=== PATIENT | male | born 1995 | race Caucasian/White ===

== ENCOUNTER 2019-02-19 12:57 | Inpatient (IN) | payer OTHER ==
[2019-02-19] VITALS (7 sets, daily range): BP systolic 93–132; BP diastolic 44–65
[~2019-02-19] VITALS: Ht 167.6 cm; Wt 60.5 kg
[2019-02-19] MEDS ORDERED: INSULIN,REGULAR 150 UNIT DRIP 150 ML IV ONE ×2 (13:15→13:23)
[2019-02-19] MEDS ORDERED: IV NORMAL SALINE 1000ML BAG 1,000 ML IV ONE ×3 (13:15→15:15)
[2019-02-19] MEDS ORDERED: INSULIN REGULAR 100 UNIT/ML 3ML VIAL. IV ONE ×2 (13:15→14:30)
[2019-02-19 13:16] LABS: BASE EXCESS COOX -29 mmol/L (-3-3); HCO3 COOX 5 mmol/L (21-28); METHEMOGLOBIN 0.7 % (0.0-1.9); PCO2 COOX 29 mmHg (35-46); PO2 COOX 309 mmHg (85-108); SAT O2 COOX 99 % (92-99)
[2019-02-19 13:30] LABS: PROTHROMBIN TIME PATIENT 17.1 SEC (11.7-14.0)
[2019-02-19] MEDS ORDERED: NOREPINEPHRIN 8MG/250ML PREMIX 250 ML IV ONE (13:30)
[2019-02-19] MEDS ORDERED: CONTRAST GIVEN. MC PRN (13:30)
[2019-02-19] MEDS ORDERED: IOHEXOL 300 MG/ML 100ML VIAL. IV ONE (13:30)
[2019-02-19] MEDS ORDERED: IV NORMAL SALINE 1000ML BAG 1,000 ML IV SCH ×2 (13:30→14:00)
--- NOTE | 2019-02-19 13:34 | RAD ---
EXAM: CHEST 1 VIEW History: Postcode COMPARISON: None available. TECHNIQUE: Single portable radiograph of the chest FINDINGS: The ET tube is identified in the trachea just below the level of the clavicles. Minimal prominent bilateral interstitial lung markings. The costophrenic sulci are clear and well demarcated. IMPRESSION: 1. ET tube in place. 2. Minimal prominent bilateral interstitial lung markings likely minimal congestive changes. Electronically signed by: Gabe Pugh MD (02/19/2019 1:31 PM) [facility]
--- NOTE | 2019-02-19 13:39 | EKG ---
[facility] [address] [place] [address] Test Date: 2019-02-19 Test Time: 13:06:21 Pat Name: CHANA CLARK Department: Room: Gender: M Upper Doubler: : 1995 Requested By: TURNER HENDERSON Order Number: [id number] Reading MD: Darell Merchant MD Measurements Intervals [place] Rate: 88 P: OR: QRS: 101 QRSD: 120 T: -14 QT: 400 QTc: 488 Interpretive Statements sr RAD RBBB NON-SPECIFIC ST/T CHANGES Electronically Signed On 02-27-2019 9:05:02 CDT by Darell Merchant MD
[2019-02-19 13:57] LABS: BILIRUBIN,URINE NEGATIVE (NEG); CLARITY,URINE CLEAR; COLOR,URINE YELLOW; NITRITE,URINE NEGATIVE (NEG); PROTEIN,URINE NEGATIVE (NEG-TRACE); UROBILINOGEN,URINE 0.2 mg/dL (0.2 mg/dL)
[2019-02-19] MEDS ORDERED: ONDANSETRON PF 4 MG/2 ML VIAL. IV PRN (14:00)
[2019-02-19] MEDS ORDERED: ENOXAPARIN 40 MG/0.4 ML SYRINGE. SQ ONE (14:00)
[2019-02-19] MEDS ORDERED: PANTOPRAZOLE IV PUSH 40 MG VIAL. IVP ONE (14:00)
[2019-02-19] MEDS ORDERED: MORPHINE SULFATE 2 MG/ML VIAL. IV PRN (14:00)
[2019-02-19] MEDS ORDERED: DEXTROSE 50% 25 GM / 50ML DISP.SYRIN. IV PRN ×2 (14:00→14:30)
[2019-02-19 14:02] LABS: ALBUMIN 3.3 g/dL (3.4-5.0); ALBUMIN/GLOBULIN RATIO 1.1 (1.0-1.7); CALCIUM 8.4 mg/dL (8.5-10.1); CREATININE 4.5 mg/dL (0.7-1.3); TOTAL BILIRUBIN 0.5 mg/dL (0.2-1.0); TOTAL PROTEIN 6.4 g/dL (6.4-8.2)
[2019-02-19 14:03] LABS: BASO # 0.1 x10^3/uL (0.0-0.2); BASO % 0 % (0-3); EOS # 0.1 x10^3/uL (0.0-0.7); EOS % 1 % (0-3); HEMATOCRIT 45.9 % (39.0-53.0); LYMPH % 19 % (24-48); MEAN CORPUSCULAR HEMOGLOBIN 31 pg (25-35); MEAN CORPUSCULAR HGB CONC 28 g/dL (31-37); MEAN CORPUSCULAR VOLUME 108 fL (79-100); MONO # 0.9 x10^3/uL (0.0-1.1); MONO % 4 % (0-9); NEUT # 16.6 x10^3uL (1.8-7.7); NEUT % 77 % (31-73); PLATELET COUNT 249 x10^3/uL (140-400); RED BLOOD COUNT 4.26 x10^6/uL (4.30-5.70); RED CELL DISTRIBUTION WIDTH 13.6 % (11.5-14.5); WHITE BLOOD COUNT 21.6 x10^3/uL (4.0-11.0)
--- NOTE | 2019-02-19 14:03 | PHYS DOC ---
Adult General Chief Complaint Chief Complaint: CPR/FULL ARREST HPI HPI Patient is a 23 year old incarcerated male patient brought in by EMS post CODE BLUE. Patient refuses to take fluids and insulin for several days and was found unresponsive for 5 minutes after had his food. EMS was arrived to the halfway door at 1209 and found patient in asystole without spontaneous breathing and started CPR at 1213 and intubated the patient at 1223 with 7.5 T tube. After about 30 minutes of CPR patient had spontaneous cardiac activity with pulse without having spontaneous breathing. The patient had blood pressure of 60s and blood sugar of 'high"at arrival to ER. (TURNER HENDERSON MD) Review of Systems Review of Systems Unable to obtain intubated patient (TURNER HENDERSON MD) Current Medications Current Medications Current Medications Medications (Trade) Dose Ordered Sig/Nieves Start Time Stop Time Status Last Admin Dose Admin Info (CONTRAST GIVEN -- Rx MONITORING) 1 each PRN DAILY PRN 02/19/19 13:30 02/21/19 13:29 Insulin Human Regular 150 ml @ As Directed STK-MED ONCE 02/19/19 13:23 02/19/19 13:24 DC Insulin Human Regular (HumuLIN R VIAL) 10 unit 1X ONCE 02/19/19 13:15 02/19/19 13:23 DC 02/19/19 13:34 10 UNIT Iohexol (Omnipaque 300 Mg/ml) 75 ml 1X ONCE 02/19/19 13:30 02/19/19 13:31 DC Norepinephrine Bitartrate 250 ml @ 0 mls/hr 1X ONCE 02/19/19 13:30 02/19/19 13:31 DC 02/19/19 13:37 5 MLS/HR Sodium Chloride 1,000 ml @ 1,000 mls/hr 1X ONCE 02/19/19 13:30 02/19/19 14:29 DC 02/19/19 13:30 1,000 MLS/HR (HOSSEIN GTZ DO) Allergies Allergies Allergies Coded Allergies Type Severity Reaction Last Updated Verified No Known Drug Allergies 02/19/19 No (HOSSEIN GTZ DO) Physical Exam Physical Exam Constitutional: Unresponsive intubated HENT: Normocephalic, atraumatic Eyes: 4 mm dilated bilateral pupils with sluggish reaction Neck: Atraumatic Cardiovascular:Heart rate regular rhythm, no murmur [] Lungs & Thorax: No spontaneous ventilation activity Abdomen: Atraumatic Skin: Cold, dry, no erythema, no rash. [] Extremities: No injury Neurologic: Unresponsive, intubated on ventilator (TURNER HENDERSON MD) Current Patient Data Vital Signs Vital Signs Date Time Temp Pulse Resp B/P (MAP) Pulse Ox O2 Delivery O2 Flow Rate FiO2 02/19/19 13:32 82 16 76/33 (47) 100 02/19/19 13:12 Ventilator 02/19/19 13:00 98.7 98.7 (GTZHOSSEIN DO) Lab Values Laboratory Tests Test 02/19/19 13:05 02/19/19 13:10 02/19/19 13:30 O2 Saturation 99 % (92-99) Arterial Blood pH 6.84 (7.35-7.45) *L Arterial Blood pCO2 at Patient Temp 29 mmHg (35-46) L Arterial Blood pO2 at Patient Temp 309 mmHg (85-108) H Arterial Blood HCO3 5 mmol/L (21-28) L Arterial Blood Base Excess -29 mmol/L (-3-3) L Oxyhemoglobin 98.0 % Methemoglobin 0.7 % (0.0-1.9) Carbon Monoxide, Quantitative 0.3 % (0.0-1.9) FiO2 60 White Blood Count 21.6 x10^3/uL (4.0-11.0) H Red Blood Count 4.26 x10^6/uL (4.30-5.70) L Hemoglobin 13.0 g/dL (13.0-17.5) Hematocrit 45.9 % (39.0-53.0) Mean Corpuscular Volume 108 fL (79-100) H Mean Corpuscular Hemoglobin 31 pg (25-35) Mean Corpuscular Hemoglobin Concent 28 g/dL (31-37) L Red Cell Distribution Width 13.6 % (11.5-14.5) Platelet Count 249 x10^3/uL (140-400) Neutrophils (%) (Auto) 77 % (31-73) H Lymphocytes (%) (Auto) 19 % (24-48) L Monocytes (%) (Auto) 4 % (0-9) Eosinophils (%) (Auto) 1 % (0-3) Basophils (%) (Auto) 0 % (0-3) Neutrophils # (Auto) 16.6 x10^3uL (1.8-7.7) H Lymphocytes # (Auto) 4.0 x10^3/uL (1.0-4.8) Monocytes # (Auto) 0.9 x10^3/uL (0.0-1.1) Eosinophils # (Auto) 0.1 x10^3/uL (0.0-0.7) Basophils # (Auto) 0.1 x10^3/uL (0.0-0.2) Segmented Neutrophils % 66 % (35-66) Band Neutrophils % 14 % (0-9) H Lymphocytes % 15 % (24-48) L Monocytes % 4 % (0-10) Metamyelocytes % 1 % (0-0) H Toxic Vacuolation Mod Platelet Estimate Adequate (ADEQUATE) Prothrombin Time 17.1 SEC (11.7-14.0) H Prothrombin Time INR 1.4 (0.8-1.1) H Sodium Level 124 mmol/L (136-145) L Potassium Level 7.3 mmol/L (3.5-5.1) *H Chloride Level 81 mmol/L (98-107) L Carbon Dioxide Level 8 mmol/L (21-32) *L Anion Gap 35 (6-14) H Blood Urea Nitrogen 79 mg/dL (8-26) H Creatinine 4.5 mg/dL (0.7-1.3) H Estimated GFR (Cockcroft-Gault) 16.0 BUN/Creatinine Ratio 18 (6-20) Glucose Level 1510 mg/dL (70-99) *H Lactic Acid Level 9.0 mmol/L (0.4-2.0) *H Calcium Level 8.4 mg/dL (8.5-10.1) L Phosphorus Level 17.5 mg/dL (2.6-4.7) H Magnesium Level 5.0 mg/dL (1.8-2.4) H Total Bilirubin 0.5 mg/dL (0.2-1.0) Aspartate Amino Transferase (AST) 902 U/L (15-37) H Alanine Aminotransferase (ALT) 464 U/L (16-63) H Alkaline Phosphatase 159 U/L (46-116) H Creatine Kinase 212 U/L (39-308) Troponin I Quantitative 0.041 ng/mL (0.000-0.055) VV-Xcn-R-Type Natriuretic Peptide 1921 pg/mL (0-124) H Total Protein 6.4 g/dL (6.4-8.2) Albumin 3.3 g/dL (3.4-5.0) L Albumin/Globulin Ratio 1.1 (1.0-1.7) Lipase 139 U/L (73-393) Salicylates Level 4.9 mg/dL (2.8-20.0) Salicylate Last Dose Date Unk Salicylate Last Dose Time Unk Acetaminophen Level 2.69 mcg/ml (10-30) L Acetaminophen Last Dose Date Unk Acetaminophen Last Dose Time Unk Acetone Level Mod pos (NEG) Urine Collection Type Unknown Urine Color Yellow Urine Clarity Clear Urine pH 5.0 Urine Specific [place] 1.025 Urine Protein Negative mg/dL (NEG-TRACE) Urine Glucose (UA) >=1000 mg/dL (NEG) Urine Ketones (Stick) >=80 mg/dL (NEG) Urine Blood Negative (NEG) Urine Nitrite Negative (NEG) Urine Bilirubin Negative (NEG) Urine Urobilinogen Dipstick 0.2 mg/dL (0.2 mg/dL) Urine Leukocyte Esterase Negative (NEG) Urine RBC 0 /HPF (0-2) Urine WBC 0 /HPF (0-4) Urine Squamous Epithelial Cells Few /LPF Urine Bacteria 0 /HPF (0-FEW) Urine Hyaline Casts Many /HPF Urine Mucus Slight /LPF Urine Opiates Screen Neg (NEG) Urine Methadone Screen Neg (NEG) Urine Barbiturates Neg (NEG) Urine Phencyclidine Screen Neg (NEG) Urine Amphetamine/Methamphetamine Neg (NEG) Urine Benzodiazepines Screen Neg (NEG) Urine Cocaine Screen Neg (NEG) Urine Cannabinoids Screen Neg (NEG) Urine Ethyl Alcohol Neg (NEG) Laboratory Tests 02/19/19 13:10 Laboratory Tests 02/19/19 13:10 (HOSSEIN GTZ DO) EKG EKG EKG interpreted by me. EKG at 1306 showed sinus rhythm at rate of 88, T-wave abnormalities in inferior leads, no acute ST and T-wave abnormalities (TURNER HENDERSON MD) Radiology/Procedures Radiology/Procedures [][facility] [address] [place] [address] IMAGING REPORT Signed PATIENT: CHANA CLARK ACCOUNT: [id number] : 1995 LOCATION: ER AGE: 23 SEX: M EXAM STATUS: REG ER ORD. PHYSICIAN: TURNER HENDERSON MD REASON: post code blue PROCEDURE: PORTABLE CHEST 1V EXAM: CHEST 1 VIEW History: Postcode COMPARISON: None available. TECHNIQUE: Single portable radiograph of the chest FINDINGS: The ET tube is identified in the trachea just below the level of the clavicles. Minimal prominent bilateral interstitial lung markings. The costophrenic sulci are clear and well demarcated. IMPRESSION: 1. ET tube in place. 2. Minimal prominent bilateral interstitial lung markings likely minimal congestive changes. Electronically signed by: Gabe Pugh MD (02/19/2019 1:31 PM) [facility] DICTATED and SIGNED BY: GABE PUGH MD DATE: 02/19/19 0777 (TURNER HENDERSON MD) Course & Med Decision Making Course & Med Decision Making Pertinent Labs and Imaging studies reviewed. (See chart for details) Evaluation of patient in ER showed 23-year-old diabetic patient brought in after Post CODE BLUE with good pulse without spontaneous breathing. Patient had high blood sugar and low blood pressure . ABG showed DKA. Patient treated with IV fluid, Zosyn and vancomycin, bicarbonate sodium, insulin bolus and drip and Levophed. Dr. Hamlin accepted admission at 1347 and presented to ER and evaluated the patient. Dr. Gilliam was consulted at 1353. (TURNER HENDERSON MD) Course & Med Decision Making Asked to assist with procedure after difficulty with placement of LIJ central line. Bedside ultrasound was utilized. Successful flash obtained but subsequent placement of wire unsuccessful x 3 attempts due to dehydration and full collapse of IJ during respirations. Decision to discontinue at that site. New sit of R femoral vein utilized with successful placement of triple lumen catheter. (HOSSEIN GTZ DO) Dragon Disclaimer Dragon Disclaimer This electronic medical record was generated, in whole or in part, using a voice recognition dictation system. (TURNER HENDERSON MD) Departure Departure Impression: Primary Impression: Cardiac arrest Additional Impressions: DKA (diabetic ketoacidoses) Acute renal insufficiency Hepatic failure History of sepsis Metabolic acidosis Hyperkalemia Disposition: 09 ADMITTED INPATIENT (@1347) Admitting Physician: Gracie Hamlin (accepted admission at 1347) (TURNER HENDERSON MD) Condition: GRAVE Referrals: UNKNOWN PCP NAME (PCP) Central Line Central Line : Central Line Lumen: triple Central Line Procedure: sterile drapes applied, sterile dressing applied Central Line Postion: femoral (R) Complications: none Central Line Post Position: sutured, good blood return Progress Time out performed. Performed under emergent consent. Bed side ultrasound utilized. Initially trailed to left internal jugular under bedside ultrasound. IJ easily compresses with respirations. After 3 unsuccessful trials decision to discontinue. (HOSSEIN GTZ DO) Critical Care Time Critical care time was 140] minutes exclusive of procedures. (TUNRER HENDERSON MD) Critical Care Time Critical care time was [] minutes exclusive of procedures. (HOSSEIN GTZ DO) Problem Qualifiers Additional Impressions: DKA (diabetic ketoacidoses) Diabetes mellitus type: type 1 Diabetes mellitus complication detail: with coma Qualified Codes: E10.11 - Type 1 diabetes mellitus with ketoacidosis with coma Hepatic failure Liver failure chronicity: acute Hepatic coma status: with hepatic coma Qualified Codes: K72.01 - Acute and subacute hepatic failure with coma TURNER HENDERSON MD Feb 19, 2019 14:03 HOSSEIN GTZ DO Feb 19, 2019 15:49
[2019-02-19 14:04] LABS: BARBITURATES NEG (NEG); BENZODIAZEPINES NEG (NEG); CANNABINOIDS NEG (NEG); COCAINE NEG (NEG); METHADONE NEG (NEG); OPIATES NEG (NEG); PHENCYCLIDINE NEG (NEG)
[2019-02-19 14:06] LABS: AMPHETAMINE/METHAMPHETAMINE NEG (NEG)
[2019-02-19 14:07] LABS: ACETAMIN 2.69 mcg/ml (10-30); SALIC 4.9 mg/dL (2.8-20.0)
[2019-02-19 14:08] LABS: BACTERIA,URINE 0 /HPF (0-FEW); HYALINE CASTS, URINE MANY /HPF; RBC,URINE 0 /HPF (0-2); SQUAMOUS EPITHELIAL CELL,UR FEW /LPF; WBC,URINE 0 /HPF (0-4)
--- NOTE | 2019-02-19 14:13 | PDOC1 ---
History and Physical Date of Admission Date of Admission DATE: 02/19/19 TIME: 14:06 Identification/Chief Complaint Chief Complaint out of hospital cardiac arrest Source Source: Caregiver, Chart review History of Present Illness History of Present Illness 23-year-old white male inmate, diabetes type 1 but unknown insulin regimen, was found down by guards, pulseless non-shockable rhythm,, downtime anywhere between 20-30 minutes. Intubated outside of the hospital. Arrived intubated. Not responsive, under no sedation. Pupils are sluggish and dilated. Rest of the labs still pending. Blood sugar is unreadable on the scale. NO CT head yet We have an ABG showing a pH of 6.9 with carbon dioxide 29 and O2 dose 300 on the vent. He is currently on the vent 50% FiO2 with PEEP of 5 and the rest of the labs pending. Chest x-ray shows a good ET tube placement. He has 2 EJ IV lines and a left josue intraosseus access. He is hypotensive currently at 7.5 mics of levophed. Browning catheter in with good urine output, status post third liter in. No family at bedside. The rest of the history is scarce. Consulted pulmonary and neurology for possible anoxia. We'll also consult cardiology for the cardiac arrest. HE Has some bloody NG output, maybe 50 cc approx Past Medical History Endocrine: Diabetes Past Surgical History Past Surgical History: No pertinent history Family History Family History: Family History Unknown Social History Smoke: No ALCOHOL: none Drugs: None Current Problem List Problem List Problems Medical Problems: (1) Cardiac arrest Status: Acute Current Medications Current Medications Current Medications Sodium Chloride 1,000 ml @ 1,000 mls/hr Q1H IV Last administered on 02/19/19at 13:00; Start 02/19/19 at 13:30; Stop 02/19/19 at 14:29 Sodium Chloride 1,000 ml @ 1,000 mls/hr 1X ONCE IV Last administered on at 13:00; Start 02/19/19 at 13:15; Stop 02/19/19 at 14:14 Insulin Human Regular (HumuLIN R VIAL) 10 unit 1X ONCE IV Last administered on 02/19/19at 13:34; Start 02/19/19 at 13:15; Stop 02/19/19 at 13:23; Status DC Insulin Human Regular 150 ml @ 7 mls/hr 1X ONCE IV Last administered on at 13:42; Start 02/19/19 at 13:15; Stop 02/20/19 at 10:40 Iohexol (Omnipaque 300 Mg/ml) 75 ml 1X ONCE IV ; Start 02/19/19 at 13:30; Stop 02/19/19 at 13:31; Status DC Sodium Chloride 1,000 ml @ 1,000 mls/hr 1X ONCE IV Last administered on at 13:30; Start 02/19/19 at 13:30; Stop 02/19/19 at 14:29 Info (CONTRAST GIVEN -- Rx MONITORING) 1 each PRN DAILY PRN MC SEE COMMENTS; Start 02/19/19 at 13:30; Stop 02/21/19 at 13:29 Insulin Human Regular 150 ml @ As Directed STK-MED ONCE IV ; Start 02/19/19 at 13:23; Stop 02/19/19 at 13:24; Status DC Norepinephrine Bitartrate 250 ml @ 0 mls/hr 1X ONCE IV Last administered on 02/19/19at 13:37; Start 02/19/19 at 13:30; Stop 02/19/19 at 13:31; Status DC Pantoprazole Sodium (PROTONIX VIAL for IV PUSH) 40 mg DAILYAC IVP ; Start at 07:30 Pantoprazole Sodium (PROTONIX VIAL for IV PUSH) 40 mg 1X ONCE IVP ; Start at 14:00; Stop 02/19/19 at 14:01; Status DC Ondansetron HCl (Zofran) 4 mg PRN Q6HRS PRN IV NAUSEA/VOMITING; Start 02/19/19 at 14:00 Morphine Sulfate (Morphine Sulfate) 2 mg PRN Q2HR PRN IV PAIN; Start 02/19/19 at 14:00 Enoxaparin Sodium (Lovenox 40mg Syringe) 40 mg Q24H SQ ; Start 02/20/19 at 09:00 Enoxaparin Sodium (Lovenox 40mg Syringe) 40 mg 1X ONCE SQ ; Start 02/19/19 at 14 :00; Stop 02/19/19 at 14:01; Status DC Insulin Human Lispro (HumaLOG) 0-9 UNITS TIDWMEALS SQ ; Start 02/19/19 at 17:00 Dextrose (Dextrose 50%-Water Syringe) 12.5 gm PRN Q15MIN PRN IV SEE COMMENTS; Start 02/19/19 at 14:00 Sodium Chloride 1,000 ml @ 125 mls/hr Q8H IV ; Start 02/19/19 at 14:00; Status UNV Sodium Bicarbonate 150 meq/Dextrose 1,150 ml @ 125 mls/hr Q9H12M IV ; Start 02/19/19 at 14:15 Allergies Allergies: Coded Allergies: No Known Drug Allergies (Unverified , 02/19/19) ROS Review of System Intubated Physical Exam General: Other (intuibated. no sedation with bloody NG output, ET ) HEENT: Atraumatic, PERRLA Lungs: Clear to auscultation, Normal air movement Heart: S1S2, RRR, no thrills, no rubs, no gallops, no murmurs Cardiovascular: S1, S2 Abdomen: Normal bowel sounds, Soft, No tenderness, No hepatosplenomegaly, No masses Male Genitals Exam: normal genitalia, normal prostate Rectal Exam: not examined PELVIC: Nml ext genitalia Extremities: No clubbing, No cyanosis, No edema, Normal pulses, No tenderness/ swelling Skin: No rashes, No breakdown, No significant lesion Neuro: Normal gait, Normal speech, Strength at 5/5 X4 ext, Normal tone, Sensation intact, Cranial nerves 3-12 NL, Reflexes 2+ Psych/Mental Status: Mental status NL, Mood NL Vitals Vitals Vital Signs Date Time Temp Pulse Resp B/P (MAP) Pulse Ox O2 Delivery O2 Flow Rate FiO2 02/19/19 13:00 99 Ventilator Labs Labs Laboratory Tests Test 02/19/19 13:05 02/19/19 13:10 02/19/19 13:30 O2 Saturation 99 % (92-99) Arterial Blood pH 6.84 (7.35-7.45) Arterial Blood pCO2 at Patient Temp 29 mmHg (35-46) Arterial Blood pO2 at Patient Temp 309 mmHg (85-108) Arterial Blood HCO3 5 mmol/L (21-28) Arterial Blood Base Excess -29 mmol/L (-3-3) Oxyhemoglobin 98.0 % Methemoglobin 0.7 % (0.0-1.9) Carbon Monoxide, Quantitative 0.3 % (0.0-1.9) FiO2 60 White Blood Count 21.6 x10^3/uL (4.0-11.0) Red Blood Count 4.26 x10^6/uL (4.30-5.70) Hemoglobin 13.0 g/dL (13.0-17.5) Hematocrit 45.9 % (39.0-53.0) Mean Corpuscular Volume 108 fL (79-100) Mean Corpuscular Hemoglobin 31 pg (25-35) Mean Corpuscular Hemoglobin Concent 28 g/dL (31-37) Red Cell Distribution Width 13.6 % (11.5-14.5) Platelet Count 249 x10^3/uL (140-400) Neutrophils (%) (Auto) 77 % (31-73) Lymphocytes (%) (Auto) 19 % (24-48) Monocytes (%) (Auto) 4 % (0-9) Eosinophils (%) (Auto) 1 % (0-3) Basophils (%) (Auto) 0 % (0-3) Neutrophils # (Auto) 16.6 x10^3uL (1.8-7.7) Lymphocytes # (Auto) 4.0 x10^3/uL (1.0-4.8) Monocytes # (Auto) 0.9 x10^3/uL (0.0-1.1) Eosinophils # (Auto) 0.1 x10^3/uL (0.0-0.7) Basophils # (Auto) 0.1 x10^3/uL (0.0-0.2) Prothrombin Time 17.1 SEC (11.7-14.0) Prothromb Time International Ratio 1.4 (0.8-1.1) Troponin I Quantitative 0.041 ng/mL (0.000-0.055) NR-Lcu-A-Type Natriuretic Peptide 1921 pg/mL (0-124) Acetone Level Mod pos (NEG) Urine Opiates Screen Neg (NEG) Urine Methadone Screen Neg (NEG) Urine Barbiturates Neg (NEG) Urine Phencyclidine Screen Neg (NEG) Urine Amphetamine/Methamphetamine Neg (NEG) Urine Benzodiazepines Screen Neg (NEG) Urine Cocaine Screen Neg (NEG) Urine Cannabinoids Screen Neg (NEG) Urine Ethyl Alcohol Neg (NEG) Laboratory Tests Test 02/19/19 13:05 02/19/19 13:10 02/19/19 13:30 O2 Saturation 99 % (92-99) Arterial Blood pH 6.84 (7.35-7.45) Arterial Blood pCO2 at Patient Temp 29 mmHg (35-46) Arterial Blood pO2 at Patient Temp 309 mmHg (85-108) Arterial Blood HCO3 5 mmol/L (21-28) Arterial Blood Base Excess -29 mmol/L (-3-3) Oxyhemoglobin 98.0 % Methemoglobin 0.7 % (0.0-1.9) Carbon Monoxide, Quantitative 0.3 % (0.0-1.9) FiO2 60 White Blood Count 21.6 x10^3/uL (4.0-11.0) Red Blood Count 4.26 x10^6/uL (4.30-5.70) Hemoglobin 13.0 g/dL (13.0-17.5) Hematocrit 45.9 % (39.0-53.0) Mean Corpuscular Volume 108 fL (79-100) Mean Corpuscular Hemoglobin 31 pg (25-35) Mean Corpuscular Hemoglobin Concent 28 g/dL (31-37) Red Cell Distribution Width 13.6 % (11.5-14.5) Platelet Count 249 x10^3/uL (140-400) Neutrophils (%) (Auto) 77 % (31-73) Lymphocytes (%) (Auto) 19 % (24-48) Monocytes (%) (Auto) 4 % (0-9) Eosinophils (%) (Auto) 1 % (0-3) Basophils (%) (Auto) 0 % (0-3) Neutrophils # (Auto) 16.6 x10^3uL (1.8-7.7) Lymphocytes # (Auto) 4.0 x10^3/uL (1.0-4.8) Monocytes # (Auto) 0.9 x10^3/uL (0.0-1.1) Eosinophils # (Auto) 0.1 x10^3/uL (0.0-0.7) Basophils # (Auto) 0.1 x10^3/uL (0.0-0.2) Prothrombin Time 17.1 SEC (11.7-14.0) Prothromb Time International Ratio 1.4 (0.8-1.1) Troponin I Quantitative 0.041 ng/mL (0.000-0.055) HI-Rln-K-Type Natriuretic Peptide 1921 pg/mL (0-124) Acetone Level Mod pos (NEG) Urine Opiates Screen Neg (NEG) Urine Methadone Screen Neg (NEG) Urine Barbiturates Neg (NEG) Urine Phencyclidine Screen Neg (NEG) Urine Amphetamine/Methamphetamine Neg (NEG) Urine Benzodiazepines Screen Neg (NEG) Urine Cocaine Screen Neg (NEG) Urine Cannabinoids Screen Neg (NEG) Urine Ethyl Alcohol Neg (NEG) VTE Prophylaxis Ordered VTE Prophylaxis Devices: Yes VTE Pharmacological Prophylaxi: Yes Assessment/Plan Assessment/Plan Out of Hospital cardiac arrest, down time 20-30 minutes Pulse less, non-shockable rhythm Possible hypoxic/anoxic brain injury Inmate Acidosis-BMP still pending Diabetes type 1, insulin requiring-possible DKA-blood sugars still unreadable and BMP still pending Bloody NG output after a code Plan ICU, vent bundle CT head PPI,. lovenox if CT head neg and bloody NGT output does not worsen Neurology cardiology and pulmonary consults Bicarbonate 150 meqs in sterile water x 1 I might need an insulin drip We'll need a central line-seen at ER, discussed with ER staff Insert browning Further recs as labs roll in Critical care 31 FULL CODE JESSE FULLER MD Feb 19, 2019 14:13
[2019-02-19 14:15] LABS: POTASSIUM 7.3 mmol/L (3.5-5.1)
[2019-02-19] MEDS ORDERED: SODIUM BICARBONATE VIAL 150 MEQ in IV STERILE WATER 1,000 ML IV ONE (14:15)
[2019-02-19] MEDS ORDERED: SODIUM BICARBONATE VIAL 150 MEQ in IV DEXTROSE 5% 1,000 ML IV SCH (14:15)
[2019-02-19] MEDS: IV DEXTROSE 5 %-0.45 % NACL 1,000 ML IV SCH ×3 (14:28→22:28)
[2019-02-19 14:29] LABS: PHOSPHORUS 17.5 mg/dL (2.6-4.7)
[2019-02-19] MEDS ORDERED: INSULIN REGULAR VIAL 150 UNIT in 0.9 % SODIUM CHLORIDE 150ML 150 ML IV PRN (14:30)
[2019-02-19] MEDS ORDERED: CALCIUM GLUCONATE 1,000 MG/10 ML VIAL. IVP ONE (14:30)
[2019-02-19] MEDS ORDERED: SODIUM POLYSTYRENE SULFONATE 15 GM/60 ML ORAL.SUSP. PO ONE (14:30)
[2019-02-19 14:44] LABS: % BANDS 14 % (0-9); % LYMPHS 15 % (24-48); % METAS 1 % (0-0); % MONOS 4 % (0-10); % SEGS 66 % (35-66)
[2019-02-19 14:45] LABS: PLT ESTIMATE ADEQUATE (ADEQUATE); TOXIC VACUOLATION MOD
[2019-02-19] MEDS ORDERED: VANCOMYCIN 1GM IVPB FOR OMNI 250 ML IV STA (15:04)
[2019-02-19] MEDS ORDERED: PIPERACILLIN/TAZOBACTAM 3.375 GM in IV NORMAL SALINE 50ML 50 ML IV ONE (15:15)
[2019-02-19] MEDS ORDERED: INSULIN LISPRO 300 UNITS/3 ML INSULN.PEN. SQ SCH (17:00)
--- NOTE | 2019-02-19 17:20 | RAD ---
INDICATION: CARDIAC ARREST
COMPARISON: None. TECHNIQUE: Axial CT images obtained through the head and cervical spine without intravenous contrast. Coronal and sagittal reformats processed of cervical spine. One or more of the following individualized dose reduction techniques were utilized for this examination: 1. Automated exposure control; 2. Adjustment of the mA and/or kV according to patient size; 3. Use of iterative reconstruction technique. FINDINGS: Head: No intracranial hemorrhage. No midline shift. Basal cisterns patents. Ventricles and sulci are within normal limits. No acute osseous abnormality. Orbits and paranasal sinuses unremarkable. Cervical: No definite acute fracture. No dislocation. No evidence of perivertebral hematoma. IMPRESSION: 1. No acute intracranial hemorrhage. 2. No definite acute fracture or dislocation of the cervical spine. 3. Linear lucency through the right first rib. Suspect that this is artifactual in nature rather than nondisplaced fracture since it extends outside of the cortex. 4. At partially visualized lung apices are patchy opacities bilaterally which could be from edema, infiltrate or aspiration. Alveolar hemorrhage also in differential. 5. Endotracheal tube and enteric tube partially seen. Electronically signed by: Ambrosio Riley MD (02/19/2019 5:17 PM) [facility]
[2019-02-19] MEDS: INSULIN LISPRO 300 UNITS/3 ML INSULN.PEN. SQ SCH ×2 (17:25→23:36)
[2019-02-19] MEDS: IV NORMAL SALINE 1000ML BAG 1,000 ML IV SCH ×3 (17:59→22:55)
[2019-02-19] MEDS ORDERED: ACET500T68 PO (18:08)
[2019-02-19] MEDS ORDERED: ASPI1TAB31 PO (18:08)
[2019-02-19] MEDS ORDERED: FAMO20TA5 PO (18:08)
[2019-02-19] MEDS ORDERED: FLUO20CA8 PO (18:08)
--- NOTE | 2019-02-19 18:08 | CONS ---
DATE OF CONSULTATION: 02/19/2019 PULMONARY CONSULTATION ATTENDING PHYSICIAN: Gracie Hamlin MD. REASON FOR CONSULTATION: Cardiac arrest. HISTORY OF PRESENT ILLNESS: The patient is a 23-year-old male who is an inmate. He has type 1 diabetes. He was found down by guards. He was pulseless and had a non-shockable rhythm. Downtime was between 20-30 minutes. He was intubated outside of the hospital and arrived to the ER at [facility] intubated. He was not responsive. Pupils are sluggish and dilated. The patient's sugar was very high. His CT head did not reveal any acute abnormality. His chest x-ray post-intubation showed endotracheal tube in satisfactory position and slightly prominent interstitial markings. He was noted to have marked hyperglycemia and marked hyperkalemia along with renal failure. His liver function tests were highly abnormal. He currently has received insulin drip. He also has received fluid resuscitation as a part of DKA protocol and on 12 mcg of Levophed. He is having some bloody NG output. PAST MEDICAL HISTORY: Significant for type 1 diabetes. PAST SURGICAL HISTORY: No pertinent surgery. FAMILY HISTORY: Noncontributory to lungs. SOCIAL HISTORY: Nonsmoker. REVIEW OF SYSTEMS: Unable to obtain from the patient. PHYSICAL EXAMINATION: GENERAL: He is intubated. He is not sedated. VITAL SIGNS: Blood pressure 111/54, his T-minimum was 91.9 on arrival. Pulse ox is 100%. HEENT: Pupils do reactive to light. Sclerae nonicteric. NECK: Supple. LUNGS: Diminished breath sounds. CARDIOVASCULAR: Tachycardia. ABDOMEN: Soft. EXTREMITIES: No pitting edema. LABORATORY DATA: Reviewed. Sodium 134, potassium 7.3, bicarbonate was 8, glucose of 1510. AST and ALT markedly elevated. Toxicology screen was negative. INR 1.4. White cell count 21.6, hemoglobin 13.0 and platelets are 249. ABGs with a pH of 6.8, pCO2 of 29 and a pO2 of 309 with bicarbonate of 5 on 60% FiO2. IMPRESSION: 1. Respiratory failure secondary to cardiac arrest. 2. Diabetic ketoacidosis triggering cardiac arrest. 3. Shock, likely combination of hypovolemic and cardiac, cannot exclude septic shock. 4. Acute kidney injury. 5. Marked lactic acidosis and metabolic acidosis. 6. Acute renal failure. 7. Hyperkalemia. 8. Hyperglycemia with diabetic ketoacidosis. 9. Abnormal chest x-ray. 10. Mildly increased INR. RECOMMENDATIONS: 1. Continue with present assist control mode and follow ABGs and make necessary adjustments. 2. Continue bicarbonate drip. 3. Prognosis appears to be guarded. He had 45 minutes of asystole and likely of anoxic brain injury is high. He also had hypothermia on arrival. He does not qualify for hypothermic protocol. This was not initiated in the ER. 4. Hyperkalemia. 5. Acute renal failure. 6. Diabetic ketoacidosis will be managed per PCP. 7. Follow chest x-ray and make sure there is no pulmonary edema. 8. Broad-spectrum antibiotics. 9. Insulin per protocol. 10. Infectious Disease recommendation. 11. Cardiology recommendation and obtain an echocardiogram. 12. Renal recommendation. 13. Stress ulcer prophylaxis. 14. Deep venous thrombosis prophylaxis. 15. Monitor OG output. 16. Discussed with RN and RT. We will follow along with you. Critical care time 40 minutes. RIZWAN MAURER MD DR: LEX/pat JOB#: [id number] / [id number]
[2019-02-19] MEDS: INSULIN REGULAR VIAL 150 UNIT in 0.9 % SODIUM CHLORIDE 150ML 150 ML IV PRN (18:12)
[2019-02-19] MEDS ORDERED: PROM25TA10 PO (18:18)
[2019-02-19] MEDS ORDERED: CALC400T5 PO (18:18)
[2019-02-19] MEDS ORDERED: HYDR25TA PO (18:18)
[2019-02-19] MEDS ORDERED: NPH,100V SQ ×2 (18:18)
[2019-02-19] MEDS ORDERED: VANCOMYCIN 1 GM in IV NORMAL SALINE 250ML 250 ML IV ONE (18:30)
[2019-02-19 18:40] LABS: CALCIUM 7.1 mg/dL (8.5-10.1); CREATININE 4.1 mg/dL (0.7-1.3); GFR 17.9; MAGNESIUM 3.5 mg/dL (1.8-2.4); POTASSIUM 4.7 mmol/L (3.5-5.1)
[2019-02-19 18:43] LABS: PHOSPHORUS 9.2 mg/dL (2.6-4.7)
[2019-02-19 19:54] LABS: BASE EXCESS ABG -20 mmol/L (-3-3); HCO3 ABG 8 mmol/L (21-28); PCO2 ABG 29 mmHg (35-46); PO2 ABG 65 mmHg (85-108); SAT O2 ABG 91 % (92-99)
[2019-02-19 19:58] LABS: FIO2 ABG 50
[2019-02-19] MEDS: SODIUM BICARBONATE VIAL 150 MEQ in IV STERILE WATER 1,000 ML IV SCH (20:32)
[2019-02-19] MEDS ORDERED: NOREPINEPHRIN 8MG/250ML PREMIX 250 ML IV PRN (21:15)
[2019-02-19] MEDS: levETIRAcetam 750 MG in IV DEXTROSE 5% 100ML 100 ML IV SCH (21:34)
--- NOTE | 2019-02-19 21:48 | PDOC2 ---
NEUROLOGY CONSULT Date of Admission Date of Admission DATE: 02/19/19 TIME: 21:17 Reason for Consult Reason for Consult: IMPRESSION: Anoxia/hypoxia encephalopathy. Metabolic encephalopathy. S/p cardiac arrest, PEA, down time estimated 20-30 minutes. Respiratory failure. Aspiration or pulmonary infiltrate. Hyperglycemia, glucose level 1510. Lactic acidosis. Leukocytosis. Myoclonus. Shock, circulation collapse. Renal failure. Elevated hepatic enzymes. Hyponatremia, Na+ 124. Hyperkalemia, K+ 7.3. Hyper-phosphorus Hypocalcemia. DM, type 1. Poor prognosis. RECOMMENDATIONS/PLAN: Life support in ICU at the present time. Keppra 750 mg IV q12h. Brain MRI w/o contrast. EEG. Lab: see orders. Control hyperglycemia. Correct electrolytes imbalances. Rehydration. Treat medical diseases. Please consult Cardiology. History of Present Illness This is a 23-year-old male inmate with history of diabetes type 1 on insulin treatment. He was reportedly refused insulin in facility. He was found down by guards as pulseless. He received CPR with 2 injections of epi and the downtime was estimated 20-30 minutes. He was intubated outside of the hospital before arrival to the ER of [facility]. He remained unresponsive. Pupils are sluggish and dilated. His glucose was 1510. Neurology was requested for consultation for anoxic brain injury. Past Medical History Endocrine: Diabetes Past Surgical History No pertinent history Family History Unknown Social History Smoke: Unknown. ALCOHOL: Unknown. Drugs: None ALLERGY: Unknown MEDICATIONS: Refer to MAR REVIEW OF SYSTEMS: Constitutional: No malnutrition, weight loss, cachexia. Head: No traumatic brain or head injury. Skin: No edema, or rash. Ear: No infection. Eyes: No vision loss or color blindness. Nose: No bleeding or purulent discharges. Hearing: No hearing decrease. Neck: No injury. Cardiac: Cardiac arrest this time. Pulmonary: Respiratory failure this time. GI: No GI ulcer, GI bleeding. Urinary/genital: Unknown. Endocrinologic: Diabetes Mellitus. Skeletomuscular: No muscular atrophy. Neurological: see HP. Psychiatric: Denies drug use/abuse. Otherwise, not [id number] review of systems. PHYSICAL EXAMINATION: General appearance is in acute distress. HEENT: Normocephalic and nontraumatic. Eyes, nose, ears, and throat are unremarkable. Neck is supple. No lymphadenopathy. No crepitus. Cardiovascular: S1, S2, regular rate and rhythm. Pulmonary: On vent. Abdomen: Bowel sounds are positive. Extremities: No rash. NEUROLOGICAL EXAMINATION: On vent. In coma. No sedation. Not oriented to time, place and person. Pupils 2-3 mm, sluggish to light stimuli. EOMI not elicited. CN: no acute focal findings. Muscle tone: decreased. Muscle strength: No movements to pain stimuli. DTR: 0-1 Plantar reflex: No response bilaterally Gait: not able to walk in this mentation. Sensory exam: No response to pain stimuli. Not able to access cerebellar signs. F-T-N test not performed due to in coma. Myoclonic movements noted.. Current Medications Current Medications Current Medications Sodium Chloride 1,000 ml @ 1,000 mls/hr Q1H IV Last administered on 02/19/19at 13:00; Start 02/19/19 at 13:30; Stop 02/19/19 at 14:29; Status DC Sodium Chloride 1,000 ml @ 1,000 mls/hr 1X ONCE IV Last administered on at 13:00; Start 02/19/19 at 13:15; Stop 02/19/19 at 14:14; Status DC Insulin Human Regular (HumuLIN R VIAL) 10 unit 1X ONCE IV Last administered on 02/19/19at 13:34; Start 02/19/19 at 13:15; Stop 02/19/19 at 13:23; Status DC Insulin Human Regular 150 ml @ 7 mls/hr 1X ONCE IV Last administered on at 13:42; Start 02/19/19 at 13:15; Stop 02/20/19 at 10:40 Iohexol (Omnipaque 300 Mg/ml) 75 ml 1X ONCE IV ; Start 02/19/19 at 13:30; Stop 02/19/19 at 13:31; Status DC Sodium Chloride 1,000 ml @ 1,000 mls/hr 1X ONCE IV Last administered on at 13:30; Start 02/19/19 at 13:30; Stop 02/19/19 at 14:29; Status DC Info (CONTRAST GIVEN -- Rx MONITORING) 1 each PRN DAILY PRN MC SEE COMMENTS; Start 02/19/19 at 13:30; Stop 02/21/19 at 13:29 Insulin Human Regular 150 ml @ As Directed STK-MED ONCE IV ; Start 02/19/19 at 13:23; Stop 02/19/19 at 13:24; Status DC Norepinephrine Bitartrate 250 ml @ 0 mls/hr 1X ONCE IV Last administered on 02/19/19at 13:37; Start 02/19/19 at 13:30; Stop 02/19/19 at 13:31; Status DC Pantoprazole Sodium (PROTONIX VIAL for IV PUSH) 40 mg DAILYAC IVP ; Start at 07:30 Pantoprazole Sodium (PROTONIX VIAL for IV PUSH) 40 mg 1X ONCE IVP Last administered on 02/19/19at 16:26; Start 02/19/19 at 14:00; Stop 02/19/19 at 14:01; Status DC Ondansetron HCl (Zofran) 4 mg PRN Q6HRS PRN IV NAUSEA/VOMITING; Start 02/19/19 at 14:00 Morphine Sulfate (Morphine Sulfate) 2 mg PRN Q2HR PRN IV PAIN; Start 02/19/19 at 14:00 Enoxaparin Sodium (Lovenox 40mg Syringe) 40 mg Q24H SQ ; Start 02/20/19 at 09:00 Enoxaparin Sodium (Lovenox 40mg Syringe) 40 mg 1X ONCE SQ Last administered on 02/19/19at 16:27; Start 02/19/19 at 14:00; Stop 02/19/19 at 14:01; Status DC Insulin Human Lispro (HumaLOG) 0-9 UNITS TIDWMEALS SQ ; Start 02/19/19 at 17:00; Stop 02/19/19 at 17:00; Status DC Dextrose (Dextrose 50%-Water Syringe) 12.5 gm PRN Q15MIN PRN IV SEE COMMENTS; Start 02/19/19 at 14:00; Stop 02/19/19 at 14:38; Status DC Sodium Chloride 1,000 ml @ 125 mls/hr Q8H IV ; Start 02/19/19 at 14:00; Status UNV Sodium Bicarbonate 150 meq/Dextrose 1,150 ml @ 125 mls/hr Q9H12M IV ; Start 02/19/19 at 14:15; Stop 02/19/19 at 14:15; Status DC Sodium Bicarbonate 150 meq/Sterile Water 1,150 ml @ 125 mls/hr 1X ONCE IV Last administered on 02/19/19at 15:52; Start 02/19/19 at 14:15; Stop 02/19/19 at 23: 26 Insulin Human Lispro (HumaLOG) 0-9 UNITS Q6HRS SQ ; Start 02/19/19 at 18:00 Insulin Human Regular 150 unit/ Sodium Chloride 151.5 ml @ 0 mls/hr CONT PRN IV SEE I/O RECORD Last administered on 02/19/19at 18:12; Start 02/19/19 at 14:30 Dextrose (Dextrose 50%-Water Syringe) 12.5 gm PRN Q15MIN PRN IV LOW BLOOD SUGAR ; Start 02/19/19 at 14:30 Sodium Chloride 1,000 ml @ 250 mls/hr Q4H IV Last administered on 02/19/19at 19: 40; Start 02/19/19 at 14:28 Dextrose/Sodium Chloride 1,000 ml @ 250 mls/hr Q4H IV ; Start 02/19/19 at 14:28 Insulin Human Regular 150 unit/ Sodium Chloride 151.5 ml @ 0 mls/hr CONT PRN PRN IV PER PROTOCOL; Start 02/19/19 at 14:30; Status UNV Calcium Gluconate (Calcium Gluconate) 1,000 mg 1X ONCE IVP Last administered on 02/19/19at 16:01; Start 02/19/19 at 14:30; Stop 02/19/19 at 14:39; Status DC Sodium Polystyrene Sulfonate (Kayexalate) 15 gm 1X ONCE PO Last administered on 02/19/19at 16:30; Start 02/19/19 at 14:30; Stop 02/19/19 at 14:39; Status DC Insulin Human Regular (HumuLIN R VIAL) 10 unit 1X ONCE IV ; Start 02/19/19 at 14 :30; Stop 02/19/19 at 14:39; Status DC Piperacillin Sod/ Tazobactam Sod 3.375 gm/Sodium Chloride 50 ml @ 100 mls/hr 1X ONCE IV Last administered on 02/19/19at 15:15; Start 02/19/19 at 15:15; Stop 02/19/19 at 15:44; Status DC Vancomycin HCl 250 ml @ 250 mls/hr 1X STAT IV ; Start 02/19/19 at 15:04; Stop 02/19/19 at 16:03; Status DC Sodium Chloride 1,000 ml @ 1,000 mls/hr 1X ONCE IV Last administered on at 16:09; Start 02/19/19 at 15:15; Stop 02/19/19 at 16:14; Status DC Vancomycin HCl 1 gm/Sodium Chloride 250 ml @ 250 mls/hr 1X ONCE IV Last administered on 02/19/19at 17:58; Start 02/19/19 at 18:30; Stop 02/19/19 at 19:29; Status DC Sodium Bicarbonate 150 meq/Sterile Water 1,150 ml @ 125 mls/hr Q9H12M IV Last administered on 02/19/19at 20:32; Start 02/19/19 at 20:00 Norepinephrine Bitartrate 250 ml @ 1.875 mls/ hr CONT PRN IV SEE I/O RECORD; Start 02/19/19 at 21:15; Status UNV Active Scripts Active Reported Tums Ultra (Calcium Carbonate) 400 Mg Tab.chew 400 Mg PO BID Promethazine Hcl 25 Mg Tablet 1 Tab PO BID Hydroxyzine Hcl 25 Mg Tablet 25 Mg PO HS Humulin N (Nph, Human Insulin Isophane) 100 Unit/1 Ml Vial 24 Unit SQ DAILY08 Humulin N (Nph, Human Insulin Isophane) 100 Unit/1 Ml Vial 17 Unit SQ HS Fluoxetine Hcl 20 Mg Capsule 1 Cap PO DAILY Famotidine 20 Mg Tablet 20 Mg PO BID Excedrin Migraine Caplet (Aspirin/Acetaminophen/Caffeine) 1 Each Tablet 2 Each PO PRN BID PRN Acetaminophen 500 Mg Tablet 2 Tab PO BID Allergies Allergies: Allergies Coded Allergies Type Severity Reaction Last Updated Verified No Known Drug Allergies 02/19/19 No ROS Review of System The patient denies any associated fevers, chills, headache, ear pain, rhinorrhea , sore throat, stiff neck, productive cough, chest pain, shortness of breath, back or flank pain, abdominal pain, nausea, vomiting, diarrhea, constipation, dysuria, rash, numbness, weakness, tingling, incontinence, difficulty ambulating, or diaphoresis. Physical Exam Physical Exam General: Well developed, well nourished, no acute distress, well appearing HEENT: Pupils equally round and reactive to light, EOMI, no discharge, normal conjunctiva Neck: Supple, no nuchal rigidity, no JVD, trachea midline, no tenderness Cardiac: RRR, no murmurs, no gallops, no rubs Chest/Lungs: CTAB, no wheeze, no rhonchi, no crackles Abdomen: soft, non-distended, no guarding, no peritoneal signs, non-tender Back: No tenderness Extremities: no edema, pulses intact, non-tender,capillary refill <3 sec bilateral upper and lower extremities, Neuro: Alert and oriented x 4, no focal deficits, normal speech Vitals Vitals: Vital Signs Date Time Temp Pulse Resp B/P (MAP) Pulse Ox O2 Delivery O2 Flow Rate FiO2 02/19/19 21:00 113 27 108/58 (75) 96 Ventilator 02/19/19 19:00 96.9 96.9 Labs Labs Laboratory Tests Test 02/19/19 13:05 02/19/19 13:10 02/19/19 13:30 02/19/19 15:45 O2 Saturation 99 % (92-99) Arterial Blood pH 6.84 (7.35-7.45) Arterial Blood pCO2 at Patient Temp 29 mmHg (35-46) Arterial Blood pO2 at Patient Temp 309 mmHg (85-108) Arterial Blood HCO3 5 mmol/L (21-28) Arterial Blood Base Excess -29 mmol/L (-3-3) Oxyhemoglobin 98.0 % Methemoglobin 0.7 % (0.0-1.9) Carbon Monoxide, Quantitative 0.3 % (0.0-1.9) FiO2 60 White Blood Count 21.6 x10^3/uL (4.0-11.0) Red Blood Count 4.26 x10^6/uL (4.30-5.70) Hemoglobin 13.0 g/dL (13.0-17.5) Hematocrit 45.9 % (39.0-53.0) Mean Corpuscular Volume 108 fL (79-100) Mean Corpuscular Hemoglobin 31 pg (25-35) Mean Corpuscular Hemoglobin Concent 28 g/dL (31-37) Red Cell Distribution Width 13.6 % (11.5-14.5) Platelet Count 249 x10^3/uL (140-400) Neutrophils (%) (Auto) 77 % (31-73) Lymphocytes (%) (Auto) 19 % (24-48) Monocytes (%) (Auto) 4 % (0-9) Eosinophils (%) (Auto) 1 % (0-3) Basophils (%) (Auto) 0 % (0-3) Neutrophils # (Auto) 16.6 x10^3uL (1.8-7.7) Lymphocytes # (Auto) 4.0 x10^3/uL (1.0-4.8) Monocytes # (Auto) 0.9 x10^3/uL (0.0-1.1) Eosinophils # (Auto) 0.1 x10^3/uL (0.0-0.7) Basophils # (Auto) 0.1 x10^3/uL (0.0-0.2) Segmented Neutrophils % 66 % (35-66) Band Neutrophils % 14 % (0-9) Lymphocytes % 15 % (24-48) Monocytes % 4 % (0-10) Metamyelocytes % 1 % (0-0) Toxic Vacuolation Mod Platelet Estimate Adequate (ADEQUATE) Prothrombin Time 17.1 SEC (11.7-14.0) Prothromb Time International Ratio 1.4 (0.8-1.1) Sodium Level 124 mmol/L (136-145) Potassium Level 7.3 mmol/L (3.5-5.1) Chloride Level 81 mmol/L (98-107) Carbon Dioxide Level 8 mmol/L (21-32) Anion Gap 35 (6-14) Blood Urea Nitrogen 79 mg/dL (8-26) Creatinine 4.5 mg/dL (0.7-1.3) Estimated GFR (Cockcroft-Gault) 16.0 BUN/Creatinine Ratio 18 (6-20) Glucose Level 1510 mg/dL (70-99) 1153 mg/dL (70-99) Lactic Acid Level 9.0 mmol/L (0.4-2.0) Calcium Level 8.4 mg/dL (8.5-10.1) Phosphorus Level 17.5 mg/dL (2.6-4.7) Magnesium Level 5.0 mg/dL (1.8-2.4) Total Bilirubin 0.5 mg/dL (0.2-1.0) Aspartate Amino Transf (AST/SGOT) 902 U/L (15-37) Alanine Aminotransferase (ALT/SGPT) 464 U/L (16-63) Alkaline Phosphatase 159 U/L (46-116) Creatine Kinase 212 U/L (39-308) Troponin I Quantitative 0.041 ng/mL (0.000-0.055) OG-Lvz-U-Type Natriuretic Peptide 1921 pg/mL (0-124) Total Protein 6.4 g/dL (6.4-8.2) Albumin 3.3 g/dL (3.4-5.0) Albumin/Globulin Ratio 1.1 (1.0-1.7) Lipase 139 U/L (73-393) Salicylates Level 4.9 mg/dL (2.8-20.0) Salicylate Last Dose Date Unk Salicylate Last Dose Time Unk Acetaminophen Level 2.69 mcg/ml (10-30) Acetaminophen Last Dose Date Unk Acetaminophen Last Dose Time Unk Acetone Level Mod pos (NEG) Urine Collection Type Unknown Urine Color Yellow Urine Clarity Clear Urine pH 5.0 Urine Specific [place] 1.025 Urine Protein Negative mg/dL (NEG-TRACE) Urine Glucose (UA) >=1000 mg/dL (NEG) Urine Ketones (Stick) >=80 mg/dL (NEG) Urine Blood Negative (NEG) Urine Nitrite Negative (NEG) Urine Bilirubin Negative (NEG) Urine Urobilinogen Dipstick 0.2 mg/dL (0.2 mg/dL) Urine Leukocyte Esterase Negative (NEG) Urine RBC 0 /HPF (0-2) Urine WBC 0 /HPF (0-4) Urine Squamous Epithelial Cells Few /LPF Urine Bacteria 0 /HPF (0-FEW) Urine Hyaline Casts Many /HPF Urine Mucus Slight /LPF Urine Opiates Screen Neg (NEG) Urine Methadone Screen Neg (NEG) Urine Barbiturates Neg (NEG) Urine Phencyclidine Screen Neg (NEG) Urine Amphetamine/Methamphetamine Neg (NEG) Urine Benzodiazepines Screen Neg (NEG) Urine Cocaine Screen Neg (NEG) Urine Cannabinoids Screen Neg (NEG) Urine Ethyl Alcohol Neg (NEG) Test 02/19/19 18:00 02/19/19 19:50 02/19/19 20:00 Sodium Level 136 mmol/L (136-145) Potassium Level 4.7 mmol/L (3.5-5.1) Chloride Level 96 mmol/L (98-107) Carbon Dioxide Level 8 mmol/L (21-32) Anion Gap 32 (6-14) Blood Urea Nitrogen 71 mg/dL (8-26) Creatinine 4.1 mg/dL (0.7-1.3) Estimated GFR (Cockcroft-Gault) 17.9 Glucose Level 1031 mg/dL (70-99) 952 mg/dL (70-99) Lactic Acid Level 3.1 mmol/L (0.4-2.0) Calcium Level 7.1 mg/dL (8.5-10.1) Phosphorus Level 9.2 mg/dL (2.6-4.7) Magnesium Level 3.5 mg/dL (1.8-2.4) O2 Saturation 91 % (92-99) Arterial Blood pH 7.08 (7.35-7.45) Arterial Blood pCO2 at Patient Temp 29 mmHg (35-46) Arterial Blood pO2 at Patient Temp 65 mmHg (85-108) Arterial Blood HCO3 8 mmol/L (21-28) Arterial Blood Base Excess -20 mmol/L (-3-3) FiO2 50 Laboratory Tests Test 02/19/19 13:05 02/19/19 13:10 02/19/19 13:30 02/19/19 15:45 O2 Saturation 99 % (92-99) Arterial Blood pH 6.84 (7.35-7.45) Arterial Blood pCO2 at Patient Temp 29 mmHg (35-46) Arterial Blood pO2 at Patient Temp 309 mmHg (85-108) Arterial Blood HCO3 5 mmol/L (21-28) Arterial Blood Base Excess -29 mmol/L (-3-3) Oxyhemoglobin 98.0 % Methemoglobin 0.7 % (0.0-1.9) Carbon Monoxide, Quantitative 0.3 % (0.0-1.9) FiO2 60 White Blood Count 21.6 x10^3/uL (4.0-11.0) Red Blood Count 4.26 x10^6/uL (4.30-5.70) Hemoglobin 13.0 g/dL (13.0-17.5) Hematocrit 45.9 % (39.0-53.0) Mean Corpuscular Volume 108 fL (79-100) Mean Corpuscular Hemoglobin 31 pg (25-35) Mean Corpuscular Hemoglobin Concent 28 g/dL (31-37) Red Cell Distribution Width 13.6 % (11.5-14.5) Platelet Count 249 x10^3/uL (140-400) Neutrophils (%) (Auto) 77 % (31-73) Lymphocytes (%) (Auto) 19 % (24-48) Monocytes (%) (Auto) 4 % (0-9) Eosinophils (%) (Auto) 1 % (0-3) Basophils (%) (Auto) 0 % (0-3) Neutrophils # (Auto) 16.6 x10^3uL (1.8-7.7) Lymphocytes # (Auto) 4.0 x10^3/uL (1.0-4.8) Monocytes # (Auto) 0.9 x10^3/uL (0.0-1.1) Eosinophils # (Auto) 0.1 x10^3/uL (0.0-0.7) Basophils # (Auto) 0.1 x10^3/uL (0.0-0.2) Segmented Neutrophils % 66 % (35-66) Band Neutrophils % 14 % (0-9) Lymphocytes % 15 % (24-48) Monocytes % 4 % (0-10) Metamyelocytes % 1 % (0-0) Toxic Vacuolation Mod Platelet Estimate Adequate (ADEQUATE) Prothrombin Time 17.1 SEC (11.7-14.0) Prothromb Time International Ratio 1.4 (0.8-1.1) Sodium Level 124 mmol/L (136-145) Potassium Level 7.3 mmol/L (3.5-5.1) Chloride Level 81 mmol/L (98-107) Carbon Dioxide Level 8 mmol/L (21-32) Anion Gap 35 (6-14) Blood Urea Nitrogen 79 mg/dL (8-26) Creatinine 4.5 mg/dL (0.7-1.3) Estimated GFR (Cockcroft-Gault) 16.0 BUN/Creatinine Ratio 18 (6-20) Glucose Level 1510 mg/dL (70-99) 1153 mg/dL (70-99) Lactic Acid Level 9.0 mmol/L (0.4-2.0) Calcium Level 8.4 mg/dL (8.5-10.1) Phosphorus Level 17.5 mg/dL (2.6-4.7) Magnesium Level 5.0 mg/dL (1.8-2.4) Total Bilirubin 0.5 mg/dL (0.2-1.0) Aspartate Amino Transf (AST/SGOT) 902 U/L (15-37) Alanine Aminotransferase (ALT/SGPT) 464 U/L (16-63) Alkaline Phosphatase 159 U/L (46-116) Creatine Kinase 212 U/L (39-308) Troponin I Quantitative 0.041 ng/mL (0.000-0.055) ND-Gfg-L-Type Natriuretic Peptide 1921 pg/mL (0-124) Total Protein 6.4 g/dL (6.4-8.2) Albumin 3.3 g/dL (3.4-5.0) Albumin/Globulin Ratio 1.1 (1.0-1.7) Lipase 139 U/L (73-393) Salicylates Level 4.9 mg/dL (2.8-20.0) Salicylate Last Dose Date Unk Salicylate Last Dose Time Unk Acetaminophen Level 2.69 mcg/ml (10-30) Acetaminophen Last Dose Date Unk Acetaminophen Last Dose Time Unk Acetone Level Mod pos (NEG) Urine Collection Type Unknown Urine Color Yellow Urine Clarity Clear Urine pH 5.0 Urine Specific [place] 1.025 Urine Protein Negative mg/dL (NEG-TRACE) Urine Glucose (UA) >=1000 mg/dL (NEG) Urine Ketones (Stick) >=80 mg/dL (NEG) Urine Blood Negative (NEG) Urine Nitrite Negative (NEG) Urine Bilirubin Negative (NEG) Urine Urobilinogen Dipstick 0.2 mg/dL (0.2 mg/dL) Urine Leukocyte Esterase Negative (NEG) Urine RBC 0 /HPF (0-2) Urine WBC 0 /HPF (0-4) Urine Squamous Epithelial Cells Few /LPF Urine Bacteria 0 /HPF (0-FEW) Urine Hyaline Casts Many /HPF Urine Mucus Slight /LPF Urine Opiates Screen Neg (NEG) Urine Methadone Screen Neg (NEG) Urine Barbiturates Neg (NEG) Urine Phencyclidine Screen Neg (NEG) Urine Amphetamine/Methamphetamine Neg (NEG) Urine Benzodiazepines Screen Neg (NEG) Urine Cocaine Screen Neg (NEG) Urine Cannabinoids Screen Neg (NEG) Urine Ethyl Alcohol Neg (NEG) Test 02/19/19 18:00 02/19/19 19:50 02/19/19 20:00 Sodium Level 136 mmol/L (136-145) Potassium Level 4.7 mmol/L (3.5-5.1) Chloride Level 96 mmol/L (98-107) Carbon Dioxide Level 8 mmol/L (21-32) Anion Gap 32 (6-14) Blood Urea Nitrogen 71 mg/dL (8-26) Creatinine 4.1 mg/dL (0.7-1.3) Estimated GFR (Cockcroft-Gault) 17.9 Glucose Level 1031 mg/dL (70-99) 952 mg/dL (70-99) Lactic Acid Level 3.1 mmol/L (0.4-2.0) Calcium Level 7.1 mg/dL (8.5-10.1) Phosphorus Level 9.2 mg/dL (2.6-4.7) Magnesium Level 3.5 mg/dL (1.8-2.4) O2 Saturation 91 % (92-99) Arterial Blood pH 7.08 (7.35-7.45) Arterial Blood pCO2 at Patient Temp 29 mmHg (35-46) Arterial Blood pO2 at Patient Temp 65 mmHg (85-108) Arterial Blood HCO3 8 mmol/L (21-28) Arterial Blood Base Excess -20 mmol/L (-3-3) FiO2 50 NARCISO KHAN MD Feb 19, 2019 21:48
[2019-02-19 22:40] LABS: CREATININE 3.8 mg/dL (0.7-1.3); GFR 19.5; MAGNESIUM 3.1 mg/dL (1.8-2.4); PHOSPHORUS 4.7 mg/dL (2.6-4.7); POTASSIUM 4.1 mmol/L (3.5-5.1)
[2019-02-20] VITALS (21 sets, daily range): BP systolic 82–116; BP diastolic 46–78
[2019-02-20 01:03] LABS: CREATININE 3.7 mg/dL (0.7-1.3); GFR 20.1; MAGNESIUM 2.9 mg/dL (1.8-2.4); PHOSPHORUS 2.6 mg/dL (2.6-4.7); POTASSIUM 3.7 mmol/L (3.5-5.1)
[2019-02-20] MEDS: IV DEXTROSE 5 %-0.45 % NACL 1,000 ML IV SCH ×6 (02:28→23:24)
[2019-02-20] MEDS: IV NORMAL SALINE 1000ML BAG 1,000 ML IV SCH ×2 (03:01→06:38)
[2019-02-20] MEDS: POTASSIUM CHL 20MEQ PREMIX 50 ML IV SCH ×2 (03:33→04:10)
[2019-02-20 04:21] LABS: BASO % 0 % (0-3); EOS # 0.1 x10^3/uL (0.0-0.7); EOS % 1 % (0-3); HEMATOCRIT 32.2 % (39.0-53.0); HEMOGLOBIN 11.3 g/dL (13.0-17.5); LYMPH # 0.9 x10^3/uL (1.0-4.8); LYMPH % 7 % (24-48); MEAN CORPUSCULAR HEMOGLOBIN 30 pg (25-35); MEAN CORPUSCULAR HGB CONC 35 g/dL (31-37); MEAN CORPUSCULAR VOLUME 86 fL (79-100); MONO # 0.6 x10^3/uL (0.0-1.1); MONO % 5 % (0-9); NEUT # 11.1 x10^3uL (1.8-7.7); NEUT % 87 % (31-73); PLATELET COUNT 197 x10^3/uL (140-400); RED BLOOD COUNT 3.74 x10^6/uL (4.30-5.70); RED CELL DISTRIBUTION WIDTH 11.7 % (11.5-14.5); WHITE BLOOD COUNT 12.7 x10^3/uL (4.0-11.0)
[2019-02-20 04:45] LABS: ALBUMIN 2.7 g/dL (3.4-5.0); CALCIUM 7.1 mg/dL (8.5-10.1); CREATININE 3.3 mg/dL (0.7-1.3); DIRECT BILIRUBIN 0.2 mg/dL (0.0-0.2); POTASSIUM 5.7 mmol/L (3.5-5.1); TOTAL BILIRUBIN 0.4 mg/dL (0.2-1.0); TOTAL PROTEIN 5.1 g/dL (6.4-8.2)
[2019-02-20] MEDS: SODIUM BICARBONATE VIAL 150 MEQ in IV STERILE WATER 1,000 ML IV SCH (05:38)
[2019-02-20] MEDS: INSULIN REGULAR VIAL 150 UNIT in 0.9 % SODIUM CHLORIDE 150ML 150 ML IV PRN ×2 (05:47→17:51)
[2019-02-20] MEDS: INSULIN LISPRO 300 UNITS/3 ML INSULN.PEN. SQ SCH ×3 (06:00→17:49)
[2019-02-20] MEDS ORDERED: SODIUM PHOSPHATE 20 MMOL in IV DEXTROSE 5% 250 ML IV ONE (08:00)
--- NOTE | 2019-02-20 08:05 | RAD ---
Single view of the chest. 02/20/2019 8:00 AM Indication: INTUBATED
RESPIRATORY FAILURE Comparison: Chest radiograph, yesterday Findings: There is an enteric tube extending into the proximal stomach. There is an endotracheal tube 2.5 cm above the albert. Patchy interstitial and alveolar infiltrates are seen throughout the bilateral lungs. Findings most consistent with pulmonary edema. An atypical infectious process or ARDS not excluded. No pneumothorax or pleural effusion is seen. Bony thorax is intact. IMPRESSION: 1. Enteric tube with tip in stomach. Endotracheal tube stable. 2. Worsening bilateral interstitial and alveolar infiltrates which could most likely represents edema, versus less likely atypical infectious process or developing ARDS Electronically signed by: Taz Gamino MD (02/20/2019 8:02 AM) [id number]
[2019-02-20] MEDS: levETIRAcetam 750 MG in IV DEXTROSE 5% 100ML 100 ML IV SCH (08:42)
[2019-02-20] MEDS: PANTOPRAZOLE IV PUSH 40 MG VIAL. IVP SCH (08:47)
--- NOTE | 2019-02-20 08:57 | PDOC2 ---
CARDIAC CONSULT DATE OF CONSULT Date of Consult DATE: 02/20/19 TIME: 08:47 REASON FOR CONSULT Reason for Consult: Cardiac arrest REFERRING PHYSICIAN Referring Physician: Dr. Hamlin SOURCE Source: Chart review HISTORY OF PRESENT ILLNESS HISTORY OF PRESENT ILLNESS This is a 23 yo male who presented from correctional facility secondary to being found down by facility staff. Was apparently refusing insulin for multiple days. EMS was called, found patient in asystole. CPR was initiated. Patient was subsequently intubated and brought into the ED for further revaluation and treatment. Time down estimated between 20-30 minutes. History obtain from chart review. PAST MEDICAL HISTORY Cardiovascular: No pertinent hx Pulmonary: No pertinent hx CENTRAL NERVOUS SYSTEM: Other (no pertinent hx) GI: No pertinent hx Heme/Onc: No pertinent hx Psych: Depression Rheumatologic: No pertinent hx Infectious disease: No pertinent hx ENT: No pertinent hx Renal/: No pertinent hx Endocrine: Diabetes Dermatology: No pertinent hx PAST SURGICAL HISTORY Past Surgical History: No pertinent history FAMILY HISTORY Family History: Family History Unknown SOCIAL HISTORY Lives: Roommate (correctional facility ) CURRENT MEDICATIONS CURRENT MEDICATIONS Current Medications Medications (Trade) Dose Ordered Sig/Nieves Route PRN Reason Start Time Stop Time Status Last Admin Dose Admin Sodium Chloride 1,000 ml @ 1,000 mls/hr Q1H IV 02/19/19 13:30 02/19/19 14:29 DC 02/19/19 13:00 Sodium Chloride 1,000 ml @ 1,000 mls/hr 1X ONCE IV 02/19/19 13:15 02/19/19 14:14 DC 02/19/19 13:00 Insulin Human Regular (HumuLIN R VIAL) 10 unit 1X ONCE IV 02/19/19 13:15 02/19/19 13:23 DC 02/19/19 13:34 Insulin Human Regular 150 ml @ 7 mls/hr 1X ONCE IV 02/19/19 13:15 02/20/19 10:40 02/19/19 13:42 Sodium Chloride 1,000 ml @ 1,000 mls/hr 1X ONCE IV 02/19/19 13:30 02/19/19 14:29 DC 02/19/19 13:30 Norepinephrine Bitartrate 250 ml @ 0 mls/hr 1X ONCE IV 02/19/19 13:30 02/19/19 13:31 DC 02/19/19 13:37 Pantoprazole Sodium (PROTONIX VIAL for IV PUSH) 40 mg 1X ONCE IVP 02/19/19 14:00 02/19/19 14:01 DC 02/19/19 16:26 Enoxaparin Sodium (Lovenox 40mg Syringe) 40 mg 1X ONCE SQ 02/19/19 14:00 02/19/19 14:01 DC 02/19/19 16:27 Sodium Bicarbonate 150 meq/Sterile Water 1,150 ml @ 125 mls/hr 1X ONCE IV 02/19/19 14:15 02/19/19 23:26 DC 02/19/19 15:52 Insulin Human Regular 150 unit/ Sodium Chloride 151.5 ml @ 0 mls/hr CONT PRN IV SEE I/O RECORD 02/19/19 14:30 02/20/19 05:47 Sodium Chloride 1,000 ml @ 250 mls/hr Q4H IV 02/19/19 14:28 02/20/19 06:38 Calcium Gluconate (Calcium Gluconate) 1,000 mg 1X ONCE IVP 02/19/19 14:30 02/19/19 14:39 DC 02/19/19 16:01 Sodium Polystyrene Sulfonate (Kayexalate) 15 gm 1X ONCE PO 02/19/19 14:30 02/19/19 14:39 DC 02/19/19 16:30 Piperacillin Sod/ Tazobactam Sod 3.375 gm/Sodium Chloride 50 ml @ 100 mls/hr 1X ONCE IV 02/19/19 15:15 02/19/19 15:44 DC 02/19/19 15:15 Sodium Chloride 1,000 ml @ 1,000 mls/hr 1X ONCE IV 02/19/19 15:15 02/19/19 16:14 DC 02/19/19 16:09 Vancomycin HCl 1 gm/Sodium Chloride 250 ml @ 250 mls/hr 1X ONCE IV 02/19/19 18:30 02/19/19 19:29 DC 02/19/19 17:58 Sodium Bicarbonate 150 meq/Sterile Water 1,150 ml @ 125 mls/hr Q9H12M IV 02/19/19 20:00 02/20/19 05:38 Levetiracetam 750 mg/Dextrose 107.5 ml @ 420 mls/hr Q12HR IV 02/19/19 22:00 02/19/19 21:34 Potassium Chloride/Water 50 ml @ 50 mls/hr Q1H IV 02/20/19 02:30 02/20/19 04:30 DC 02/20/19 04:10 ALLERGIES ALLERGIES: Coded Allergies: No Known Drug Allergies (Unverified , 02/19/19) ROS Review of System unobtainable PHYSICAL EXAM General: Other (intubated) HEENT: Other (pupils dilated, sluggish) Lungs: Clear to auscultation, Other (mechanical ventilation) Heart: Other (ST, distant heart tones) Extremities: No edema, Normal pulses Skin: No significant lesion Neuro: Other Psych/Mental Status: Other (non-responsive, no sedation. ) VITALS VITALS Vital Signs Date Time Temp Pulse Resp B/P (MAP) Pulse Ox O2 Delivery O2 Flow Rate FiO2 02/20/19 08:00 100.3 118 100/58 (72) 99 Ventilator 100.3 02/20/19 06:00 28 LABS Lab: Laboratory Tests Test 02/19/19 13:05 02/19/19 13:10 02/19/19 13:30 02/19/19 15:45 O2 Saturation 99 % (92-99) Arterial Blood pH 6.84 (7.35-7.45) Arterial Blood pCO2 at Patient Temp 29 mmHg (35-46) Arterial Blood pO2 at Patient Temp 309 mmHg (85-108) Arterial Blood HCO3 5 mmol/L (21-28) Arterial Blood Base Excess -29 mmol/L (-3-3) Oxyhemoglobin 98.0 % Methemoglobin 0.7 % (0.0-1.9) Carbon Monoxide, Quantitative 0.3 % (0.0-1.9) FiO2 60 White Blood Count 21.6 x10^3/uL (4.0-11.0) Red Blood Count 4.26 x10^6/uL (4.30-5.70) Hemoglobin 13.0 g/dL (13.0-17.5) Hematocrit 45.9 % (39.0-53.0) Mean Corpuscular Volume 108 fL (79-100) Mean Corpuscular Hemoglobin 31 pg (25-35) Mean Corpuscular Hemoglobin Concent 28 g/dL (31-37) Red Cell Distribution Width 13.6 % (11.5-14.5) Platelet Count 249 x10^3/uL (140-400) Neutrophils (%) (Auto) 77 % (31-73) Lymphocytes (%) (Auto) 19 % (24-48) Monocytes (%) (Auto) 4 % (0-9) Eosinophils (%) (Auto) 1 % (0-3) Basophils (%) (Auto) 0 % (0-3) Neutrophils # (Auto) 16.6 x10^3uL (1.8-7.7) Lymphocytes # (Auto) 4.0 x10^3/uL (1.0-4.8) Monocytes # (Auto) 0.9 x10^3/uL (0.0-1.1) Eosinophils # (Auto) 0.1 x10^3/uL (0.0-0.7) Basophils # (Auto) 0.1 x10^3/uL (0.0-0.2) Segmented Neutrophils % 66 % (35-66) Band Neutrophils % 14 % (0-9) Lymphocytes % 15 % (24-48) Monocytes % 4 % (0-10) Metamyelocytes % 1 % (0-0) Toxic Vacuolation Mod Platelet Estimate Adequate (ADEQUATE) Prothrombin Time 17.1 SEC (11.7-14.0) Prothromb Time International Ratio 1.4 (0.8-1.1) Sodium Level 124 mmol/L (136-145) Potassium Level 7.3 mmol/L (3.5-5.1) Chloride Level 81 mmol/L (98-107) Carbon Dioxide Level 8 mmol/L (21-32) Anion Gap 35 (6-14) Blood Urea Nitrogen 79 mg/dL (8-26) Creatinine 4.5 mg/dL (0.7-1.3) Estimated GFR (Cockcroft-Gault) 16.0 BUN/Creatinine Ratio 18 (6-20) Glucose Level 1510 mg/dL (70-99) 1153 mg/dL (70-99) Lactic Acid Level 9.0 mmol/L (0.4-2.0) Calcium Level 8.4 mg/dL (8.5-10.1) Phosphorus Level 17.5 mg/dL (2.6-4.7) Magnesium Level 5.0 mg/dL (1.8-2.4) Total Bilirubin 0.5 mg/dL (0.2-1.0) Aspartate Amino Transf (AST/SGOT) 902 U/L (15-37) Alanine Aminotransferase (ALT/SGPT) 464 U/L (16-63) Alkaline Phosphatase 159 U/L (46-116) Creatine Kinase 212 U/L (39-308) Troponin I Quantitative 0.041 ng/mL (0.000-0.055) EQ-Ocb-E-Type Natriuretic Peptide 1921 pg/mL (0-124) Total Protein 6.4 g/dL (6.4-8.2) Albumin 3.3 g/dL (3.4-5.0) Albumin/Globulin Ratio 1.1 (1.0-1.7) Lipase 139 U/L (73-393) Salicylates Level 4.9 mg/dL (2.8-20.0) Salicylate Last Dose Date Unk Salicylate Last Dose Time Unk Acetaminophen Level 2.69 mcg/ml (10-30) Acetaminophen Last Dose Date Unk Acetaminophen Last Dose Time Unk Acetone Level Mod pos (NEG) Urine Collection Type Unknown Urine Color Yellow Urine Clarity Clear Urine pH 5.0 Urine Specific Elmore 1.025 Urine Protein Negative mg/dL (NEG-TRACE) Urine Glucose (UA) >=1000 mg/dL (NEG) Urine Ketones (Stick) >=80 mg/dL (NEG) Urine Blood Negative (NEG) Urine Nitrite Negative (NEG) Urine Bilirubin Negative (NEG) Urine Urobilinogen Dipstick 0.2 mg/dL (0.2 mg/dL) Urine Leukocyte Esterase Negative (NEG) Urine RBC 0 /HPF (0-2) Urine WBC 0 /HPF (0-4) Urine Squamous Epithelial Cells Few /LPF Urine Bacteria 0 /HPF (0-FEW) Urine Hyaline Casts Many /HPF Urine Mucus Slight /LPF Urine Opiates Screen Neg (NEG) Urine Methadone Screen Neg (NEG) Urine Barbiturates Neg (NEG) Urine Phencyclidine Screen Neg (NEG) Urine Amphetamine/Methamphetamine Neg (NEG) Urine Benzodiazepines Screen Neg (NEG) Urine Cocaine Screen Neg (NEG) Urine Cannabinoids Screen Neg (NEG) Urine Ethyl Alcohol Neg (NEG) Test 02/19/19 18:00 02/19/19 19:50 02/19/19 20:00 02/19/19 22:00 Sodium Level 136 mmol/L (136-145) 137 mmol/L (136-145) Potassium Level 4.7 mmol/L (3.5-5.1) 4.1 mmol/L (3.5-5.1) Chloride Level 96 mmol/L (98-107) 97 mmol/L (98-107) Carbon Dioxide Level 8 mmol/L (21-32) 12 mmol/L (21-32) Anion Gap 32 (6-14) 28 (6-14) Blood Urea Nitrogen 71 mg/dL (8-26) 66 mg/dL (8-26) Creatinine 4.1 mg/dL (0.7-1.3) 3.8 mg/dL (0.7-1.3) Estimated GFR (Cockcroft-Gault) 17.9 19.5 Glucose Level 1031 mg/dL (70-99) 952 mg/dL (70-99) 848 mg/dL (70-99) Lactic Acid Level 3.1 mmol/L (0.4-2.0) Calcium Level 7.1 mg/dL (8.5-10.1) 7.0 mg/dL (8.5-10.1) Phosphorus Level 9.2 mg/dL (2.6-4.7) 4.7 mg/dL (2.6-4.7) Magnesium Level 3.5 mg/dL (1.8-2.4) 3.1 mg/dL (1.8-2.4) Creatine Kinase 2316 U/L (39-308) Vitamin B12 Level 1787 pg/mL (247-911) Thyroid Stimulating Hormone (TSH) 4.191 uIU/mL (0.358-3.74) O2 Saturation 91 % (92-99) Arterial Blood pH 7.08 (7.35-7.45) Arterial Blood pCO2 at Patient Temp 29 mmHg (35-46) Arterial Blood pO2 at Patient Temp 65 mmHg (85-108) Arterial Blood HCO3 8 mmol/L (21-28) Arterial Blood Base Excess -20 mmol/L (-3-3) FiO2 50 Test 02/20/19 00:20 02/20/19 02:00 02/20/19 03:52 02/20/19 04:00 Sodium Level 141 mmol/L (136-145) 145 mmol/L (136-145) Potassium Level 3.7 mmol/L (3.5-5.1) 5.7 mmol/L (3.5-5.1) Chloride Level 102 mmol/L (98-107) 109 mmol/L (98-107) Carbon Dioxide Level 17 mmol/L (21-32) 24 mmol/L (21-32) Anion Gap 22 (6-14) 12 (6-14) Blood Urea Nitrogen 63 mg/dL (8-26) 57 mg/dL (8-26) Creatinine 3.7 mg/dL (0.7-1.3) 3.3 mg/dL (0.7-1.3) Estimated GFR (Cockcroft-Gault) 20.1 23.0 Glucose Level 639 mg/dL (70-99) 500 mg/dL (70-99) 358 mg/dL (70-99) Calcium Level 7.0 mg/dL (8.5-10.1) 7.1 mg/dL (8.5-10.1) Phosphorus Level 2.6 mg/dL (2.6-4.7) 1.3 mg/dL (2.6-4.7) Magnesium Level 2.9 mg/dL (1.8-2.4) 2.5 mg/dL (1.8-2.4) Glucose (Fingerstick) 358 mg/dL (70-99) White Blood Count 12.7 x10^3/uL (4.0-11.0) Red Blood Count 3.74 x10^6/uL (4.30-5.70) Hemoglobin 11.3 g/dL (13.0-17.5) Hematocrit 32.2 % (39.0-53.0) Mean Corpuscular Volume 86 fL (79-100) Mean Corpuscular Hemoglobin 30 pg (25-35) Mean Corpuscular Hemoglobin Concent 35 g/dL (31-37) Red Cell Distribution Width 11.7 % (11.5-14.5) Platelet Count 197 x10^3/uL (140-400) Neutrophils (%) (Auto) 87 % (31-73) Lymphocytes (%) (Auto) 7 % (24-48) Monocytes (%) (Auto) 5 % (0-9) Eosinophils (%) (Auto) 1 % (0-3) Basophils (%) (Auto) 0 % (0-3) Neutrophils # (Auto) 11.1 x10^3uL (1.8-7.7) Lymphocytes # (Auto) 0.9 x10^3/uL (1.0-4.8) Monocytes # (Auto) 0.6 x10^3/uL (0.0-1.1) Eosinophils # (Auto) 0.1 x10^3/uL (0.0-0.7) Basophils # (Auto) 0.0 x10^3/uL (0.0-0.2) Total Bilirubin 0.4 mg/dL (0.2-1.0) Direct Bilirubin 0.2 mg/dL (0.0-0.2) Aspartate Amino Transf (AST/SGOT) 938 U/L (15-37) Alanine Aminotransferase (ALT/SGPT) 345 U/L (16-63) Alkaline Phosphatase 106 U/L (46-116) Total Protein 5.1 g/dL (6.4-8.2) Albumin 2.7 g/dL (3.4-5.0) Test 02/20/19 05:03 02/20/19 06:10 02/20/19 07:56 Glucose (Fingerstick) 295 mg/dL (70-99) 265 mg/dL (70-99) 150 mg/dL (70-99) ASSESSMENT/PLAN ASSESSMENT/PLAN 1. Cardiac arrest; down time estimated 20-30 minutes. 2. Respiratory failure; s/p intubation 3. Anoxic, metabolic encephalopathy; neuro following 4. Seizures; on Keppra 5. DM, type 1; with significant hyperglycemia. BS > 1500 upon arrival 6. LACY; improving 7. Transaminitis 8. Shock; requiring pressor support 9. Leukocytosis, lactic acidosis 10. Hypokalemia 11. Hyponatremia Recommendations Check echo to assess LV systolic function Pressor support Supportive care from a CV standpoint Prognosis poor. MARIANNA STODDARD APRN Feb 20, 2019 08:57
[2019-02-20] MEDS ORDERED: ENOXAPARIN 40 MG/0.4 ML SYRINGE. SQ SCH (09:00)
--- NOTE | 2019-02-20 09:03 | PDOC2 ---
CONSULT Date of Consult Date of Consult DATE: 02/20/19 TIME: 08:48 Reason for Consult Reason for Consult: Metabolic acidosis Identification/Chief Complaint Chief Complaint Intubated Source Source: Chart review History of Present Illness Reason for Visit: Pt is a 23-year-old white male inmate, diabetes type 1 but unknown insulin regimen, was found down by guards, pulseless non-shockable rhythm,, downtime anywhere between 20-30 minutes. Intubated outside of the hospital. Arrived intubated. Not responsive, under no sedation. Blood sugar was unreadable on the scale. ABG showed a pH of 6.9. hypotensive currently on levophed. Smiley catheter in with good urine output, status post third liter in. No family at bedside. The rest of the history is scarce. CT head did not reveal any acute abnormality. Past Medical History Endocrine: Diabetes Past Surgical History Past Surgical History: No pertinent history Family History Family History: Family History Unknown Social History No ALCOHOL: none Drugs: None Current Problem List Problem List Problems Medical Problems: (1) Acute renal insufficiency Status: Acute (2) Cardiac arrest Status: Acute (3) Hepatic failure Status: Acute (4) History of sepsis Status: Acute (5) Hyperkalemia Status: Acute (6) Metabolic acidosis Status: Acute Current Medications Current Medications Current Medications Sodium Chloride 1,000 ml @ 1,000 mls/hr Q1H IV Last administered on 02/19/19at 13:00; Start 02/19/19 at 13:30; Stop 02/19/19 at 14:29; Status DC Sodium Chloride 1,000 ml @ 1,000 mls/hr 1X ONCE IV Last administered on at 13:00; Start 02/19/19 at 13:15; Stop 02/19/19 at 14:14; Status DC Insulin Human Regular (HumuLIN R VIAL) 10 unit 1X ONCE IV Last administered on 02/19/19at 13:34; Start 02/19/19 at 13:15; Stop 02/19/19 at 13:23; Status DC Insulin Human Regular 150 ml @ 7 mls/hr 1X ONCE IV Last administered on at 13:42; Start 02/19/19 at 13:15; Stop 02/20/19 at 10:40 Iohexol (Omnipaque 300 Mg/ml) 75 ml 1X ONCE IV ; Start 02/19/19 at 13:30; Stop 02/19/19 at 13:31; Status DC Sodium Chloride 1,000 ml @ 1,000 mls/hr 1X ONCE IV Last administered on at 13:30; Start 02/19/19 at 13:30; Stop 02/19/19 at 14:29; Status DC Info (CONTRAST GIVEN -- Rx MONITORING) 1 each PRN DAILY PRN MC SEE COMMENTS; Start 02/19/19 at 13:30; Stop 02/21/19 at 13:29 Insulin Human Regular 150 ml @ As Directed STK-MED ONCE IV ; Start 02/19/19 at 13:23; Stop 02/19/19 at 13:24; Status DC Norepinephrine Bitartrate 250 ml @ 0 mls/hr 1X ONCE IV Last administered on 02/19/19at 13:37; Start 02/19/19 at 13:30; Stop 02/19/19 at 13:31; Status DC Pantoprazole Sodium (PROTONIX VIAL for IV PUSH) 40 mg DAILYAC IVP ; Start at 07:30 Pantoprazole Sodium (PROTONIX VIAL for IV PUSH) 40 mg 1X ONCE IVP Last administered on 02/19/19at 16:26; Start 02/19/19 at 14:00; Stop 02/19/19 at 14:01; Status DC Ondansetron HCl (Zofran) 4 mg PRN Q6HRS PRN IV NAUSEA/VOMITING; Start 02/19/19 at 14:00 Morphine Sulfate (Morphine Sulfate) 2 mg PRN Q2HR PRN IV PAIN; Start 02/19/19 at 14:00 Enoxaparin Sodium (Lovenox 40mg Syringe) 40 mg Q24H SQ ; Start 02/20/19 at 09:00 Enoxaparin Sodium (Lovenox 40mg Syringe) 40 mg 1X ONCE SQ Last administered on 02/19/19at 16:27; Start 02/19/19 at 14:00; Stop 02/19/19 at 14:01; Status DC Insulin Human Lispro (HumaLOG) 0-9 UNITS TIDWMEALS SQ ; Start 02/19/19 at 17:00; Stop 02/19/19 at 17:00; Status DC Dextrose (Dextrose 50%-Water Syringe) 12.5 gm PRN Q15MIN PRN IV SEE COMMENTS; Start 02/19/19 at 14:00; Stop 02/19/19 at 14:38; Status DC Sodium Chloride 1,000 ml @ 125 mls/hr Q8H IV ; Start 02/19/19 at 14:00; Status UNV Sodium Bicarbonate 150 meq/Dextrose 1,150 ml @ 125 mls/hr Q9H12M IV ; Start 02/19/19 at 14:15; Stop 02/19/19 at 14:15; Status DC Sodium Bicarbonate 150 meq/Sterile Water 1,150 ml @ 125 mls/hr 1X ONCE IV Last administered on 02/19/19at 15:52; Start 02/19/19 at 14:15; Stop 02/19/19 at 23: 26; Status DC Insulin Human Lispro (HumaLOG) 0-9 UNITS Q6HRS SQ ; Start 02/19/19 at 18:00 Insulin Human Regular 150 unit/ Sodium Chloride 151.5 ml @ 0 mls/hr CONT PRN IV SEE I/O RECORD Last administered on 02/20/19at 05:47; Start 02/19/19 at 14:30 Dextrose (Dextrose 50%-Water Syringe) 12.5 gm PRN Q15MIN PRN IV LOW BLOOD SUGAR ; Start 02/19/19 at 14:30 Sodium Chloride 1,000 ml @ 250 mls/hr Q4H IV Last administered on 02/20/19at 06 :38; Start 02/19/19 at 14:28 Dextrose/Sodium Chloride 1,000 ml @ 250 mls/hr Q4H IV ; Start 02/19/19 at 14:28 Insulin Human Regular 150 unit/ Sodium Chloride 151.5 ml @ 0 mls/hr CONT PRN PRN IV PER PROTOCOL; Start 02/19/19 at 14:30; Status UNV Calcium Gluconate (Calcium Gluconate) 1,000 mg 1X ONCE IVP Last administered on 02/19/19at 16:01; Start 02/19/19 at 14:30; Stop 02/19/19 at 14:39; Status DC Sodium Polystyrene Sulfonate (Kayexalate) 15 gm 1X ONCE PO Last administered on 02/19/19at 16:30; Start 02/19/19 at 14:30; Stop 02/19/19 at 14:39; Status DC Insulin Human Regular (HumuLIN R VIAL) 10 unit 1X ONCE IV ; Start 02/19/19 at 14 :30; Stop 02/19/19 at 14:39; Status DC Piperacillin Sod/ Tazobactam Sod 3.375 gm/Sodium Chloride 50 ml @ 100 mls/hr 1X ONCE IV Last administered on 02/19/19at 15:15; Start 02/19/19 at 15:15; Stop 02/19/19 at 15:44; Status DC Vancomycin HCl 250 ml @ 250 mls/hr 1X STAT IV ; Start 02/19/19 at 15:04; Stop 02/19/19 at 16:03; Status DC Sodium Chloride 1,000 ml @ 1,000 mls/hr 1X ONCE IV Last administered on at 16:09; Start 02/19/19 at 15:15; Stop 02/19/19 at 16:14; Status DC Vancomycin HCl 1 gm/Sodium Chloride 250 ml @ 250 mls/hr 1X ONCE IV Last administered on 02/19/19at 17:58; Start 02/19/19 at 18:30; Stop 02/19/19 at 19:29; Status DC Sodium Bicarbonate 150 meq/Sterile Water 1,150 ml @ 125 mls/hr Q9H12M IV Last administered on 02/20/19at 05:38; Start 02/19/19 at 20:00 Norepinephrine Bitartrate 250 ml @ 1.875 mls/ hr CONT PRN IV SEE I/O RECORD; Start 02/19/19 at 21:15 Levetiracetam 750 mg/Dextrose 107.5 ml @ 420 mls/hr Q12HR IV Last administered on 02/19/19at 21:34; Start 02/19/19 at 22:00 Potassium Chloride/Water 50 ml @ 50 mls/hr Q1H IV Last administered on at 04:10; Start 02/20/19 at 02:30; Stop 02/20/19 at 04:30; Status DC Sodium Phosphate 20 mmol/Dextrose 256.6667 ml @ 64.167 m... 1X ONCE IV ; Start 02/20/19 at 08:00; Stop 02/20/19 at 11:59 Active Scripts Active Reported Tums Ultra (Calcium Carbonate) 400 Mg Tab.chew 400 Mg PO BID Promethazine Hcl 25 Mg Tablet 1 Tab PO BID Hydroxyzine Hcl 25 Mg Tablet 25 Mg PO HS Humulin N (Nph, Human Insulin Isophane) 100 Unit/1 Ml Vial 24 Unit SQ DAILY08 Humulin N (Nph, Human Insulin Isophane) 100 Unit/1 Ml Vial 17 Unit SQ HS Fluoxetine Hcl 20 Mg Capsule 1 Cap PO DAILY Famotidine 20 Mg Tablet 20 Mg PO BID Excedrin Migraine Caplet (Aspirin/Acetaminophen/Caffeine) 1 Each Tablet 2 Each PO PRN BID PRN Acetaminophen 500 Mg Tablet 2 Tab PO BID Allergies Allergies: Coded Allergies: No Known Drug Allergies (Unverified , 02/19/19) ROS Review of System Unable to obtain Physical Exam Physical Exam General: intubated. no sedation HEENT: NG , ET Neck Supple Lungs: Clear to auscultation, Cardiovascular: RRR Abdomen: Normal bowel sounds, Soft, No tenderness, Extremities: No clubbing, No cyanosis, No edema, Skin: No rashes, No breakdown, No significant lesion Neuro: Intubated, Not sedated Smiley + Vital Signs Vital Signs Date Time Temp Pulse Resp B/P (MAP) Pulse Ox O2 Delivery O2 Flow Rate FiO2 02/20/19 08:00 100.3 118 100/58 (72) 99 Ventilator 100.3 02/20/19 06:00 28 Assessment & Plan LACY - Post cardiac arrest /DKA Non oliguric, Improving with IVF /DKA protocol UA unremarkable Monitor Metabolic acidosis - Sec to DKA On DKA protocol ,Bicarb drip Bicarb Improved Hyperkalemia- Recd KCL as per protocol Out of Hospital cardiac arrest, down time 20-30 minutes Pulse less, non-shockable rhythm Respiratory failure secondary to cardiac arrest. Intubated on MV Possible hypoxic/anoxic brain injury Diabetes type 1, insulin DKA Initial BS 1500 ,DKA protocol Labs Labs Laboratory Tests Test 02/19/19 13:05 02/19/19 13:10 02/19/19 13:30 02/19/19 15:45 O2 Saturation 99 % (92-99) Arterial Blood pH 6.84 (7.35-7.45) Arterial Blood pCO2 at Patient Temp 29 mmHg (35-46) Arterial Blood pO2 at Patient Temp 309 mmHg (85-108) Arterial Blood HCO3 5 mmol/L (21-28) Arterial Blood Base Excess -29 mmol/L (-3-3) Oxyhemoglobin 98.0 % Methemoglobin 0.7 % (0.0-1.9) Carbon Monoxide, Quantitative 0.3 % (0.0-1.9) FiO2 60 White Blood Count 21.6 x10^3/uL (4.0-11.0) Red Blood Count 4.26 x10^6/uL (4.30-5.70) Hemoglobin 13.0 g/dL (13.0-17.5) Hematocrit 45.9 % (39.0-53.0) Mean Corpuscular Volume 108 fL (79-100) Mean Corpuscular Hemoglobin 31 pg (25-35) Mean Corpuscular Hemoglobin Concent 28 g/dL (31-37) Red Cell Distribution Width 13.6 % (11.5-14.5) Platelet Count 249 x10^3/uL (140-400) Neutrophils (%) (Auto) 77 % (31-73) Lymphocytes (%) (Auto) 19 % (24-48) Monocytes (%) (Auto) 4 % (0-9) Eosinophils (%) (Auto) 1 % (0-3) Basophils (%) (Auto) 0 % (0-3) Neutrophils # (Auto) 16.6 x10^3uL (1.8-7.7) Lymphocytes # (Auto) 4.0 x10^3/uL (1.0-4.8) Monocytes # (Auto) 0.9 x10^3/uL (0.0-1.1) Eosinophils # (Auto) 0.1 x10^3/uL (0.0-0.7) Basophils # (Auto) 0.1 x10^3/uL (0.0-0.2) Segmented Neutrophils % 66 % (35-66) Band Neutrophils % 14 % (0-9) Lymphocytes % 15 % (24-48) Monocytes % 4 % (0-10) Metamyelocytes % 1 % (0-0) Toxic Vacuolation Mod Platelet Estimate Adequate (ADEQUATE) Prothrombin Time 17.1 SEC (11.7-14.0) Prothromb Time International Ratio 1.4 (0.8-1.1) Sodium Level 124 mmol/L (136-145) Potassium Level 7.3 mmol/L (3.5-5.1) Chloride Level 81 mmol/L (98-107) Carbon Dioxide Level 8 mmol/L (21-32) Anion Gap 35 (6-14) Blood Urea Nitrogen 79 mg/dL (8-26) Creatinine 4.5 mg/dL (0.7-1.3) Estimated GFR (Cockcroft-Gault) 16.0 BUN/Creatinine Ratio 18 (6-20) Glucose Level 1510 mg/dL (70-99) 1153 mg/dL (70-99) Lactic Acid Level 9.0 mmol/L (0.4-2.0) Calcium Level 8.4 mg/dL (8.5-10.1) Phosphorus Level 17.5 mg/dL (2.6-4.7) Magnesium Level 5.0 mg/dL (1.8-2.4) Total Bilirubin 0.5 mg/dL (0.2-1.0) Aspartate Amino Transf (AST/SGOT) 902 U/L (15-37) Alanine Aminotransferase (ALT/SGPT) 464 U/L (16-63) Alkaline Phosphatase 159 U/L (46-116) Creatine Kinase 212 U/L (39-308) Troponin I Quantitative 0.041 ng/mL (0.000-0.055) MR-Ijz-R-Type Natriuretic Peptide 1921 pg/mL (0-124) Total Protein 6.4 g/dL (6.4-8.2) Albumin 3.3 g/dL (3.4-5.0) Albumin/Globulin Ratio 1.1 (1.0-1.7) Lipase 139 U/L (73-393) Salicylates Level 4.9 mg/dL (2.8-20.0) Salicylate Last Dose Date Unk Salicylate Last Dose Time Unk Acetaminophen Level 2.69 mcg/ml (10-30) Acetaminophen Last Dose Date Unk Acetaminophen Last Dose Time Unk Acetone Level Mod pos (NEG) Urine Collection Type Unknown Urine Color Yellow Urine Clarity Clear Urine pH 5.0 Urine Specific [place] 1.025 Urine Protein Negative mg/dL (NEG-TRACE) Urine Glucose (UA) >=1000 mg/dL (NEG) Urine Ketones (Stick) >=80 mg/dL (NEG) Urine Blood Negative (NEG) Urine Nitrite Negative (NEG) Urine Bilirubin Negative (NEG) Urine Urobilinogen Dipstick 0.2 mg/dL (0.2 mg/dL) Urine Leukocyte Esterase Negative (NEG) Urine RBC 0 /HPF (0-2) Urine WBC 0 /HPF (0-4) Urine Squamous Epithelial Cells Few /LPF Urine Bacteria 0 /HPF (0-FEW) Urine Hyaline Casts Many /HPF Urine Mucus Slight /LPF Urine Opiates Screen Neg (NEG) Urine Methadone Screen Neg (NEG) Urine Barbiturates Neg (NEG) Urine Phencyclidine Screen Neg (NEG) Urine Amphetamine/Methamphetamine Neg (NEG) Urine Benzodiazepines Screen Neg (NEG) Urine Cocaine Screen Neg (NEG) Urine Cannabinoids Screen Neg (NEG) Urine Ethyl Alcohol Neg (NEG) Test 02/19/19 18:00 02/19/19 19:50 02/19/19 20:00 02/19/19 22:00 Sodium Level 136 mmol/L (136-145) 137 mmol/L (136-145) Potassium Level 4.7 mmol/L (3.5-5.1) 4.1 mmol/L (3.5-5.1) Chloride Level 96 mmol/L (98-107) 97 mmol/L (98-107) Carbon Dioxide Level 8 mmol/L (21-32) 12 mmol/L (21-32) Anion Gap 32 (6-14) 28 (6-14) Blood Urea Nitrogen 71 mg/dL (8-26) 66 mg/dL (8-26) Creatinine 4.1 mg/dL (0.7-1.3) 3.8 mg/dL (0.7-1.3) Estimated GFR (Cockcroft-Gault) 17.9 19.5 Glucose Level 1031 mg/dL (70-99) 952 mg/dL (70-99) 848 mg/dL (70-99) Lactic Acid Level 3.1 mmol/L (0.4-2.0) Calcium Level 7.1 mg/dL (8.5-10.1) 7.0 mg/dL (8.5-10.1) Phosphorus Level 9.2 mg/dL (2.6-4.7) 4.7 mg/dL (2.6-4.7) Magnesium Level 3.5 mg/dL (1.8-2.4) 3.1 mg/dL (1.8-2.4) Creatine Kinase 2316 U/L (39-308) Vitamin B12 Level 1787 pg/mL (247-911) Thyroid Stimulating Hormone (TSH) 4.191 uIU/mL (0.358-3.74) O2 Saturation 91 % (92-99) Arterial Blood pH 7.08 (7.35-7.45) Arterial Blood pCO2 at Patient Temp 29 mmHg (35-46) Arterial Blood pO2 at Patient Temp 65 mmHg (85-108) Arterial Blood HCO3 8 mmol/L (21-28) Arterial Blood Base Excess -20 mmol/L (-3-3) FiO2 50 Test 02/20/19 00:20 02/20/19 02:00 02/20/19 03:52 02/20/19 04:00 Sodium Level 141 mmol/L (136-145) 145 mmol/L (136-145) Potassium Level 3.7 mmol/L (3.5-5.1) 5.7 mmol/L (3.5-5.1) Chloride Level 102 mmol/L (98-107) 109 mmol/L (98-107) Carbon Dioxide Level 17 mmol/L (21-32) 24 mmol/L (21-32) Anion Gap 22 (6-14) 12 (6-14) Blood Urea Nitrogen 63 mg/dL (8-26) 57 mg/dL (8-26) Creatinine 3.7 mg/dL (0.7-1.3) 3.3 mg/dL (0.7-1.3) Estimated GFR (Cockcroft-Gault) 20.1 23.0 Glucose Level 639 mg/dL (70-99) 500 mg/dL (70-99) 358 mg/dL (70-99) Calcium Level 7.0 mg/dL (8.5-10.1) 7.1 mg/dL (8.5-10.1) Phosphorus Level 2.6 mg/dL (2.6-4.7) 1.3 mg/dL (2.6-4.7) Magnesium Level 2.9 mg/dL (1.8-2.4) 2.5 mg/dL (1.8-2.4) Glucose (Fingerstick) 358 mg/dL (70-99) White Blood Count 12.7 x10^3/uL (4.0-11.0) Red Blood Count 3.74 x10^6/uL (4.30-5.70) Hemoglobin 11.3 g/dL (13.0-17.5) Hematocrit 32.2 % (39.0-53.0) Mean Corpuscular Volume 86 fL (79-100) Mean Corpuscular Hemoglobin 30 pg (25-35) Mean Corpuscular Hemoglobin Concent 35 g/dL (31-37) Red Cell Distribution Width 11.7 % (11.5-14.5) Platelet Count 197 x10^3/uL (140-400) Neutrophils (%) (Auto) 87 % (31-73) Lymphocytes (%) (Auto) 7 % (24-48) Monocytes (%) (Auto) 5 % (0-9) Eosinophils (%) (Auto) 1 % (0-3) Basophils (%) (Auto) 0 % (0-3) Neutrophils # (Auto) 11.1 x10^3uL (1.8-7.7) Lymphocytes # (Auto) 0.9 x10^3/uL (1.0-4.8) Monocytes # (Auto) 0.6 x10^3/uL (0.0-1.1) Eosinophils # (Auto) 0.1 x10^3/uL (0.0-0.7) Basophils # (Auto) 0.0 x10^3/uL (0.0-0.2) Total Bilirubin 0.4 mg/dL (0.2-1.0) Direct Bilirubin 0.2 mg/dL (0.0-0.2) Aspartate Amino Transf (AST/SGOT) 938 U/L (15-37) Alanine Aminotransferase (ALT/SGPT) 345 U/L (16-63) Alkaline Phosphatase 106 U/L (46-116) Total Protein 5.1 g/dL (6.4-8.2) Albumin 2.7 g/dL (3.4-5.0) Test 02/20/19 05:03 02/20/19 06:10 02/20/19 07:56 Glucose (Fingerstick) 295 mg/dL (70-99) 265 mg/dL (70-99) 150 mg/dL (70-99) Laboratory Tests Test 02/19/19 13:05 02/19/19 13:10 02/19/19 13:30 02/19/19 15:45 O2 Saturation 99 % (92-99) Arterial Blood pH 6.84 (7.35-7.45) Arterial Blood pCO2 at Patient Temp 29 mmHg (35-46) Arterial Blood pO2 at Patient Temp 309 mmHg (85-108) Arterial Blood HCO3 5 mmol/L (21-28) Arterial Blood Base Excess -29 mmol/L (-3-3) Oxyhemoglobin 98.0 % Methemoglobin 0.7 % (0.0-1.9) Carbon Monoxide, Quantitative 0.3 % (0.0-1.9) FiO2 60 White Blood Count 21.6 x10^3/uL (4.0-11.0) Red Blood Count 4.26 x10^6/uL (4.30-5.70) Hemoglobin 13.0 g/dL (13.0-17.5) Hematocrit 45.9 % (39.0-53.0) Mean Corpuscular Volume 108 fL (79-100) Mean Corpuscular Hemoglobin 31 pg (25-35) Mean Corpuscular Hemoglobin Concent 28 g/dL (31-37) Red Cell Distribution Width 13.6 % (11.5-14.5) Platelet Count 249 x10^3/uL (140-400) Neutrophils (%) (Auto) 77 % (31-73) Lymphocytes (%) (Auto) 19 % (24-48) Monocytes (%) (Auto) 4 % (0-9) Eosinophils (%) (Auto) 1 % (0-3) Basophils (%) (Auto) 0 % (0-3) Neutrophils # (Auto) 16.6 x10^3uL (1.8-7.7) Lymphocytes # (Auto) 4.0 x10^3/uL (1.0-4.8) Monocytes # (Auto) 0.9 x10^3/uL (0.0-1.1) Eosinophils # (Auto) 0.1 x10^3/uL (0.0-0.7) Basophils # (Auto) 0.1 x10^3/uL (0.0-0.2) Segmented Neutrophils % 66 % (35-66) Band Neutrophils % 14 % (0-9) Lymphocytes % 15 % (24-48) Monocytes % 4 % (0-10) Metamyelocytes % 1 % (0-0) Toxic Vacuolation Mod Platelet Estimate Adequate (ADEQUATE) Prothrombin Time 17.1 SEC (11.7-14.0) Prothromb Time International Ratio 1.4 (0.8-1.1) Sodium Level 124 mmol/L (136-145) Potassium Level 7.3 mmol/L (3.5-5.1) Chloride Level 81 mmol/L (98-107) Carbon Dioxide Level 8 mmol/L (21-32) Anion Gap 35 (6-14) Blood Urea Nitrogen 79 mg/dL (8-26) Creatinine 4.5 mg/dL (0.7-1.3) Estimated GFR (Cockcroft-Gault) 16.0 BUN/Creatinine Ratio 18 (6-20) Glucose Level 1510 mg/dL (70-99) 1153 mg/dL (70-99) Lactic Acid Level 9.0 mmol/L (0.4-2.0) Calcium Level 8.4 mg/dL (8.5-10.1) Phosphorus Level 17.5 mg/dL (2.6-4.7) Magnesium Level 5.0 mg/dL (1.8-2.4) Total Bilirubin 0.5 mg/dL (0.2-1.0) Aspartate Amino Transf (AST/SGOT) 902 U/L (15-37) Alanine Aminotransferase (ALT/SGPT) 464 U/L (16-63) Alkaline Phosphatase 159 U/L (46-116) Creatine Kinase 212 U/L (39-308) Troponin I Quantitative 0.041 ng/mL (0.000-0.055) HF-Ztn-[id number]-Type Natriuretic Peptide 1921 pg/mL (0-124) Total Protein 6.4 g/dL (6.4-8.2) Albumin 3.3 g/dL (3.4-5.0) Albumin/Globulin Ratio 1.1 (1.0-1.7) Lipase 139 U/L (73-393) Salicylates Level 4.9 mg/dL (2.8-20.0) Salicylate Last Dose Date Unk Salicylate Last Dose Time Unk Acetaminophen Level 2.69 mcg/ml (10-30) Acetaminophen Last Dose Date Unk Acetaminophen Last Dose Time Unk Acetone Level Mod pos (NEG) Urine Collection Type Unknown Urine Color Yellow Urine Clarity Clear Urine pH 5.0 Urine Specific [place] 1.025 Urine Protein Negative mg/dL (NEG-TRACE) Urine Glucose (UA) >=1000 mg/dL (NEG) Urine Ketones (Stick) >=80 mg/dL (NEG) Urine Blood Negative (NEG) Urine Nitrite Negative (NEG) Urine Bilirubin Negative (NEG) Urine Urobilinogen Dipstick 0.2 mg/dL (0.2 mg/dL) Urine Leukocyte Esterase Negative (NEG) Urine RBC 0 /HPF (0-2) Urine WBC 0 /HPF (0-4) Urine Squamous Epithelial Cells Few /LPF Urine Bacteria 0 /HPF (0-FEW) Urine Hyaline Casts Many /HPF Urine Mucus Slight /LPF Urine Opiates Screen Neg (NEG) Urine Methadone Screen Neg (NEG) Urine Barbiturates Neg (NEG) Urine Phencyclidine Screen Neg (NEG) Urine Amphetamine/Methamphetamine Neg (NEG) Urine Benzodiazepines Screen Neg (NEG) Urine Cocaine Screen Neg (NEG) Urine Cannabinoids Screen Neg (NEG) Urine Ethyl Alcohol Neg (NEG) Test 02/19/19 18:00 02/19/19 19:50 02/19/19 20:00 02/19/19 22:00 Sodium Level 136 mmol/L (136-145) 137 mmol/L (136-145) Potassium Level 4.7 mmol/L (3.5-5.1) 4.1 mmol/L (3.5-5.1) Chloride Level 96 mmol/L (98-107) 97 mmol/L (98-107) Carbon Dioxide Level 8 mmol/L (21-32) 12 mmol/L (21-32) Anion Gap 32 (6-14) 28 (6-14) Blood Urea Nitrogen 71 mg/dL (8-26) 66 mg/dL (8-26) Creatinine 4.1 mg/dL (0.7-1.3) 3.8 mg/dL (0.7-1.3) Estimated GFR (Cockcroft-Gault) 17.9 19.5 Glucose Level 1031 mg/dL (70-99) 952 mg/dL (70-99) 848 mg/dL (70-99) Lactic Acid Level 3.1 mmol/L (0.4-2.0) Calcium Level 7.1 mg/dL (8.5-10.1) 7.0 mg/dL (8.5-10.1) Phosphorus Level 9.2 mg/dL (2.6-4.7) 4.7 mg/dL (2.6-4.7) Magnesium Level 3.5 mg/dL (1.8-2.4) 3.1 mg/dL (1.8-2.4) Creatine Kinase 2316 U/L (39-308) Vitamin B12 Level 1787 pg/mL (247-911) Thyroid Stimulating Hormone (TSH) 4.191 uIU/mL (0.358-3.74) O2 Saturation 91 % (92-99) Arterial Blood pH 7.08 (7.35-7.45) Arterial Blood pCO2 at Patient Temp 29 mmHg (35-46) Arterial Blood pO2 at Patient Temp 65 mmHg (85-108) Arterial Blood HCO3 8 mmol/L (21-28) Arterial Blood Base Excess -20 mmol/L (-3-3) FiO2 50 Test 02/20/19 00:20 02/20/19 02:00 02/20/19 03:52 02/20/19 04:00 Sodium Level 141 mmol/L (136-145) 145 mmol/L (136-145) Potassium Level 3.7 mmol/L (3.5-5.1) 5.7 mmol/L (3.5-5.1) Chloride Level 102 mmol/L (98-107) 109 mmol/L (98-107) Carbon Dioxide Level 17 mmol/L (21-32) 24 mmol/L (21-32) Anion Gap 22 (6-14) 12 (6-14) Blood Urea Nitrogen 63 mg/dL (8-26) 57 mg/dL (8-26) Creatinine 3.7 mg/dL (0.7-1.3) 3.3 mg/dL (0.7-1.3) Estimated GFR (Cockcroft-Gault) 20.1 23.0 Glucose Level 639 mg/dL (70-99) 500 mg/dL (70-99) 358 mg/dL (70-99) Calcium Level 7.0 mg/dL (8.5-10.1) 7.1 mg/dL (8.5-10.1) Phosphorus Level 2.6 mg/dL (2.6-4.7) 1.3 mg/dL (2.6-4.7) Magnesium Level 2.9 mg/dL (1.8-2.4) 2.5 mg/dL (1.8-2.4) Glucose (Fingerstick) 358 mg/dL (70-99) White Blood Count 12.7 x10^3/uL (4.0-11.0) Red Blood Count 3.74 x10^6/uL (4.30-5.70) Hemoglobin 11.3 g/dL (13.0-17.5) Hematocrit 32.2 % (39.0-53.0) Mean Corpuscular Volume 86 fL (79-100) Mean Corpuscular Hemoglobin 30 pg (25-35) Mean Corpuscular Hemoglobin Concent 35 g/dL (31-37) Red Cell Distribution Width 11.7 % (11.5-14.5) Platelet Count 197 x10^3/uL (140-400) Neutrophils (%) (Auto) 87 % (31-73) Lymphocytes (%) (Auto) 7 % (24-48) Monocytes (%) (Auto) 5 % (0-9) Eosinophils (%) (Auto) 1 % (0-3) Basophils (%) (Auto) 0 % (0-3) Neutrophils # (Auto) 11.1 x10^3uL (1.8-7.7) Lymphocytes # (Auto) 0.9 x10^3/uL (1.0-4.8) Monocytes # (Auto) 0.6 x10^3/uL (0.0-1.1) Eosinophils # (Auto) 0.1 x10^3/uL (0.0-0.7) Basophils # (Auto) 0.0 x10^3/uL (0.0-0.2) Total Bilirubin 0.4 mg/dL (0.2-1.0) Direct Bilirubin 0.2 mg/dL (0.0-0.2) Aspartate Amino Transf (AST/SGOT) 938 U/L (15-37) Alanine Aminotransferase (ALT/SGPT) 345 U/L (16-63) Alkaline Phosphatase 106 U/L (46-116) Total Protein 5.1 g/dL (6.4-8.2) Albumin 2.7 g/dL (3.4-5.0) Test 02/20/19 05:03 02/20/19 06:10 02/20/19 07:56 Glucose (Fingerstick) 295 mg/dL (70-99) 265 mg/dL (70-99) 150 mg/dL (70-99) Review All relevant outside records, renal labs, imaging studies, telemetry/EKG's were reviewed. Images Images CxR-- IMPRESSION: 1. Enteric tube with tip in stomach. Endotracheal tube stable. 2. Worsening bilateral interstitial and alveolar infiltrates which could most likely represents edema, versus less likely atypical infectious process or developing ARDS Electronically signed by: Taz Gamino MD (02/20/2019 8:02 AM) [id number] PORTER GREGG MD Feb 20, 2019 09:03
--- NOTE | 2019-02-20 09:14 | PDOC ---
PULMONARY PROGRESS NOTES Subjective on AC mode having severe myoclonic seizures highly suspected anoxic encephalopathy Vitals Vital Signs Date Time Temp Pulse Resp B/P (MAP) Pulse Ox O2 Delivery O2 Flow Rate FiO2 02/20/19 08:00 100.3 118 100/58 (72) 99 Ventilator 100.3 02/20/19 06:00 28 Lungs: Other (decrease bs) Cardiovascular: S1, S2 Abdomen: Soft Extremities: No Edema Skin: Warm Labs Laboratory Tests Test 02/19/19 13:05 02/19/19 13:10 02/19/19 13:30 02/19/19 15:45 O2 Saturation 99 % (92-99) Arterial Blood pH 6.84 (7.35-7.45) Arterial Blood pCO2 at Patient Temp 29 mmHg (35-46) Arterial Blood pO2 at Patient Temp 309 mmHg (85-108) Arterial Blood HCO3 5 mmol/L (21-28) Arterial Blood Base Excess -29 mmol/L (-3-3) Oxyhemoglobin 98.0 % Methemoglobin 0.7 % (0.0-1.9) Carbon Monoxide, Quantitative 0.3 % (0.0-1.9) FiO2 60 White Blood Count 21.6 x10^3/uL (4.0-11.0) Red Blood Count 4.26 x10^6/uL (4.30-5.70) Hemoglobin 13.0 g/dL (13.0-17.5) Hematocrit 45.9 % (39.0-53.0) Mean Corpuscular Volume 108 fL (79-100) Mean Corpuscular Hemoglobin 31 pg (25-35) Mean Corpuscular Hemoglobin Concent 28 g/dL (31-37) Red Cell Distribution Width 13.6 % (11.5-14.5) Platelet Count 249 x10^3/uL (140-400) Neutrophils (%) (Auto) 77 % (31-73) Lymphocytes (%) (Auto) 19 % (24-48) Monocytes (%) (Auto) 4 % (0-9) Eosinophils (%) (Auto) 1 % (0-3) Basophils (%) (Auto) 0 % (0-3) Neutrophils # (Auto) 16.6 x10^3uL (1.8-7.7) Lymphocytes # (Auto) 4.0 x10^3/uL (1.0-4.8) Monocytes # (Auto) 0.9 x10^3/uL (0.0-1.1) Eosinophils # (Auto) 0.1 x10^3/uL (0.0-0.7) Basophils # (Auto) 0.1 x10^3/uL (0.0-0.2) Segmented Neutrophils % 66 % (35-66) Band Neutrophils % 14 % (0-9) Lymphocytes % 15 % (24-48) Monocytes % 4 % (0-10) Metamyelocytes % 1 % (0-0) Toxic Vacuolation Mod Platelet Estimate Adequate (ADEQUATE) Prothrombin Time 17.1 SEC (11.7-14.0) Prothromb Time International Ratio 1.4 (0.8-1.1) Sodium Level 124 mmol/L (136-145) Potassium Level 7.3 mmol/L (3.5-5.1) Chloride Level 81 mmol/L (98-107) Carbon Dioxide Level 8 mmol/L (21-32) Anion Gap 35 (6-14) Blood Urea Nitrogen 79 mg/dL (8-26) Creatinine 4.5 mg/dL (0.7-1.3) Estimated GFR (Cockcroft-Gault) 16.0 BUN/Creatinine Ratio 18 (6-20) Glucose Level 1510 mg/dL (70-99) 1153 mg/dL (70-99) Lactic Acid Level 9.0 mmol/L (0.4-2.0) Calcium Level 8.4 mg/dL (8.5-10.1) Phosphorus Level 17.5 mg/dL (2.6-4.7) Magnesium Level 5.0 mg/dL (1.8-2.4) Total Bilirubin 0.5 mg/dL (0.2-1.0) Aspartate Amino Transf (AST/SGOT) 902 U/L (15-37) Alanine Aminotransferase (ALT/SGPT) 464 U/L (16-63) Alkaline Phosphatase 159 U/L (46-116) Creatine Kinase 212 U/L (39-308) Troponin I Quantitative 0.041 ng/mL (0.000-0.055) [id number]-Type Natriuretic Peptide 1921 pg/mL (0-124) Total Protein 6.4 g/dL (6.4-8.2) Albumin 3.3 g/dL (3.4-5.0) Albumin/Globulin Ratio 1.1 (1.0-1.7) Lipase 139 U/L (73-393) Salicylates Level 4.9 mg/dL (2.8-20.0) Salicylate Last Dose Date Unk Salicylate Last Dose Time Unk Acetaminophen Level 2.69 mcg/ml (10-30) Acetaminophen Last Dose Date Unk Acetaminophen Last Dose Time Unk Acetone Level Mod pos (NEG) Urine Collection Type Unknown Urine Color Yellow Urine Clarity Clear Urine pH 5.0 Urine Specific [place] 1.025 Urine Protein Negative mg/dL (NEG-TRACE) Urine Glucose (UA) >=1000 mg/dL (NEG) Urine Ketones (Stick) >=80 mg/dL (NEG) Urine Blood Negative (NEG) Urine Nitrite Negative (NEG) Urine Bilirubin Negative (NEG) Urine Urobilinogen Dipstick 0.2 mg/dL (0.2 mg/dL) Urine Leukocyte Esterase Negative (NEG) Urine RBC 0 /HPF (0-2) Urine WBC 0 /HPF (0-4) Urine Squamous Epithelial Cells Few /LPF Urine Bacteria 0 /HPF (0-FEW) Urine Hyaline Casts Many /HPF Urine Mucus Slight /LPF Urine Opiates Screen Neg (NEG) Urine Methadone Screen Neg (NEG) Urine Barbiturates Neg (NEG) Urine Phencyclidine Screen Neg (NEG) Urine Amphetamine/Methamphetamine Neg (NEG) Urine Benzodiazepines Screen Neg (NEG) Urine Cocaine Screen Neg (NEG) Urine Cannabinoids Screen Neg (NEG) Urine Ethyl Alcohol Neg (NEG) Test 02/19/19 18:00 02/19/19 19:50 02/19/19 20:00 02/19/19 22:00 Sodium Level 136 mmol/L (136-145) 137 mmol/L (136-145) Potassium Level 4.7 mmol/L (3.5-5.1) 4.1 mmol/L (3.5-5.1) Chloride Level 96 mmol/L (98-107) 97 mmol/L (98-107) Carbon Dioxide Level 8 mmol/L (21-32) 12 mmol/L (21-32) Anion Gap 32 (6-14) 28 (6-14) Blood Urea Nitrogen 71 mg/dL (8-26) 66 mg/dL (8-26) Creatinine 4.1 mg/dL (0.7-1.3) 3.8 mg/dL (0.7-1.3) Estimated GFR (Cockcroft-Gault) 17.9 19.5 Glucose Level 1031 mg/dL (70-99) 952 mg/dL (70-99) 848 mg/dL (70-99) Lactic Acid Level 3.1 mmol/L (0.4-2.0) Calcium Level 7.1 mg/dL (8.5-10.1) 7.0 mg/dL (8.5-10.1) Phosphorus Level 9.2 mg/dL (2.6-4.7) 4.7 mg/dL (2.6-4.7) Magnesium Level 3.5 mg/dL (1.8-2.4) 3.1 mg/dL (1.8-2.4) Creatine Kinase 2316 U/L (39-308) Vitamin B12 Level 1787 pg/mL (247-911) Thyroid Stimulating Hormone (TSH) 4.191 uIU/mL (0.358-3.74) O2 Saturation 91 % (92-99) Arterial Blood pH 7.08 (7.35-7.45) Arterial Blood pCO2 at Patient Temp 29 mmHg (35-46) Arterial Blood pO2 at Patient Temp 65 mmHg (85-108) Arterial Blood HCO3 8 mmol/L (21-28) Arterial Blood Base Excess -20 mmol/L (-3-3) FiO2 50 Test 02/20/19 00:20 02/20/19 02:00 02/20/19 03:52 02/20/19 04:00 Sodium Level 141 mmol/L (136-145) 145 mmol/L (136-145) Potassium Level 3.7 mmol/L (3.5-5.1) 5.7 mmol/L (3.5-5.1) Chloride Level 102 mmol/L (98-107) 109 mmol/L (98-107) Carbon Dioxide Level 17 mmol/L (21-32) 24 mmol/L (21-32) Anion Gap 22 (6-14) 12 (6-14) Blood Urea Nitrogen 63 mg/dL (8-26) 57 mg/dL (8-26) Creatinine 3.7 mg/dL (0.7-1.3) 3.3 mg/dL (0.7-1.3) Estimated GFR (Cockcroft-Gault) 20.1 23.0 Glucose Level 639 mg/dL (70-99) 500 mg/dL (70-99) 358 mg/dL (70-99) Calcium Level 7.0 mg/dL (8.5-10.1) 7.1 mg/dL (8.5-10.1) Phosphorus Level 2.6 mg/dL (2.6-4.7) 1.3 mg/dL (2.6-4.7) Magnesium Level 2.9 mg/dL (1.8-2.4) 2.5 mg/dL (1.8-2.4) Glucose (Fingerstick) 358 mg/dL (70-99) White Blood Count 12.7 x10^3/uL (4.0-11.0) Red Blood Count 3.74 x10^6/uL (4.30-5.70) Hemoglobin 11.3 g/dL (13.0-17.5) Hematocrit 32.2 % (39.0-53.0) Mean Corpuscular Volume 86 fL (79-100) Mean Corpuscular Hemoglobin 30 pg (25-35) Mean Corpuscular Hemoglobin Concent 35 g/dL (31-37) Red Cell Distribution Width 11.7 % (11.5-14.5) Platelet Count 197 x10^3/uL (140-400) Neutrophils (%) (Auto) 87 % (31-73) Lymphocytes (%) (Auto) 7 % (24-48) Monocytes (%) (Auto) 5 % (0-9) Eosinophils (%) (Auto) 1 % (0-3) Basophils (%) (Auto) 0 % (0-3) Neutrophils # (Auto) 11.1 x10^3uL (1.8-7.7) Lymphocytes # (Auto) 0.9 x10^3/uL (1.0-4.8) Monocytes # (Auto) 0.6 x10^3/uL (0.0-1.1) Eosinophils # (Auto) 0.1 x10^3/uL (0.0-0.7) Basophils # (Auto) 0.0 x10^3/uL (0.0-0.2) Total Bilirubin 0.4 mg/dL (0.2-1.0) Direct Bilirubin 0.2 mg/dL (0.0-0.2) Aspartate Amino Transf (AST/SGOT) 938 U/L (15-37) Alanine Aminotransferase (ALT/SGPT) 345 U/L (16-63) Alkaline Phosphatase 106 U/L (46-116) Total Protein 5.1 g/dL (6.4-8.2) Albumin 2.7 g/dL (3.4-5.0) Test 02/20/19 05:03 02/20/19 06:10 02/20/19 07:56 Glucose (Fingerstick) 295 mg/dL (70-99) 265 mg/dL (70-99) 150 mg/dL (70-99) Laboratory Tests Test 02/19/19 13:05 02/19/19 13:10 02/19/19 13:30 02/19/19 15:45 O2 Saturation 99 % (92-99) Arterial Blood pH 6.84 (7.35-7.45) Arterial Blood pCO2 at Patient Temp 29 mmHg (35-46) Arterial Blood pO2 at Patient Temp 309 mmHg (85-108) Arterial Blood HCO3 5 mmol/L (21-28) Arterial Blood Base Excess -29 mmol/L (-3-3) Oxyhemoglobin 98.0 % Methemoglobin 0.7 % (0.0-1.9) Carbon Monoxide, Quantitative 0.3 % (0.0-1.9) FiO2 60 White Blood Count 21.6 x10^3/uL (4.0-11.0) Red Blood Count 4.26 x10^6/uL (4.30-5.70) Hemoglobin 13.0 g/dL (13.0-17.5) Hematocrit 45.9 % (39.0-53.0) Mean Corpuscular Volume 108 fL (79-100) Mean Corpuscular Hemoglobin 31 pg (25-35) Mean Corpuscular Hemoglobin Concent 28 g/dL (31-37) Red Cell Distribution Width 13.6 % (11.5-14.5) Platelet Count 249 x10^3/uL (140-400) Neutrophils (%) (Auto) 77 % (31-73) Lymphocytes (%) (Auto) 19 % (24-48) Monocytes (%) (Auto) 4 % (0-9) Eosinophils (%) (Auto) 1 % (0-3) Basophils (%) (Auto) 0 % (0-3) Neutrophils # (Auto) 16.6 x10^3uL (1.8-7.7) Lymphocytes # (Auto) 4.0 x10^3/uL (1.0-4.8) Monocytes # (Auto) 0.9 x10^3/uL (0.0-1.1) Eosinophils # (Auto) 0.1 x10^3/uL (0.0-0.7) Basophils # (Auto) 0.1 x10^3/uL (0.0-0.2) Segmented Neutrophils % 66 % (35-66) Band Neutrophils % 14 % (0-9) Lymphocytes % 15 % (24-48) Monocytes % 4 % (0-10) Metamyelocytes % 1 % (0-0) Toxic Vacuolation Mod Platelet Estimate Adequate (ADEQUATE) Prothrombin Time 17.1 SEC (11.7-14.0) Prothromb Time International Ratio 1.4 (0.8-1.1) Sodium Level 124 mmol/L (136-145) Potassium Level 7.3 mmol/L (3.5-5.1) Chloride Level 81 mmol/L (98-107) Carbon Dioxide Level 8 mmol/L (21-32) Anion Gap 35 (6-14) Blood Urea Nitrogen 79 mg/dL (8-26) Creatinine 4.5 mg/dL (0.7-1.3) Estimated GFR (Cockcroft-Gault) 16.0 BUN/Creatinine Ratio 18 (6-20) Glucose Level 1510 mg/dL (70-99) 1153 mg/dL (70-99) Lactic Acid Level 9.0 mmol/L (0.4-2.0) Calcium Level 8.4 mg/dL (8.5-10.1) Phosphorus Level 17.5 mg/dL (2.6-4.7) Magnesium Level 5.0 mg/dL (1.8-2.4) Total Bilirubin 0.5 mg/dL (0.2-1.0) Aspartate Amino Transf (AST/SGOT) 902 U/L (15-37) Alanine Aminotransferase (ALT/SGPT) 464 U/L (16-63) Alkaline Phosphatase 159 U/L (46-116) Creatine Kinase 212 U/L (39-308) Troponin I Quantitative 0.041 ng/mL (0.000-0.055) NT-Qdn-M-Type Natriuretic Peptide 1921 pg/mL (0-124) Total Protein 6.4 g/dL (6.4-8.2) Albumin 3.3 g/dL (3.4-5.0) Albumin/Globulin Ratio 1.1 (1.0-1.7) Lipase 139 U/L (73-393) Salicylates Level 4.9 mg/dL (2.8-20.0) Salicylate Last Dose Date Unk Salicylate Last Dose Time Unk Acetaminophen Level 2.69 mcg/ml (10-30) Acetaminophen Last Dose Date Unk Acetaminophen Last Dose Time Unk Acetone Level Mod pos (NEG) Urine Collection Type Unknown Urine Color Yellow Urine Clarity Clear Urine pH 5.0 Urine Specific [place] 1.025 Urine Protein Negative mg/dL (NEG-TRACE) Urine Glucose (UA) >=1000 mg/dL (NEG) Urine Ketones (Stick) >=80 mg/dL (NEG) Urine Blood Negative (NEG) Urine Nitrite Negative (NEG) Urine Bilirubin Negative (NEG) Urine Urobilinogen Dipstick 0.2 mg/dL (0.2 mg/dL) Urine Leukocyte Esterase Negative (NEG) Urine RBC 0 /HPF (0-2) Urine WBC 0 /HPF (0-4) Urine Squamous Epithelial Cells Few /LPF Urine Bacteria 0 /HPF (0-FEW) Urine Hyaline Casts Many /HPF Urine Mucus Slight /LPF Urine Opiates Screen Neg (NEG) Urine Methadone Screen Neg (NEG) Urine Barbiturates Neg (NEG) Urine Phencyclidine Screen Neg (NEG) Urine Amphetamine/Methamphetamine Neg (NEG) Urine Benzodiazepines Screen Neg (NEG) Urine Cocaine Screen Neg (NEG) Urine Cannabinoids Screen Neg (NEG) Urine Ethyl Alcohol Neg (NEG) Test 02/19/19 18:00 02/19/19 19:50 02/19/19 20:00 02/19/19 22:00 Sodium Level 136 mmol/L (136-145) 137 mmol/L (136-145) Potassium Level 4.7 mmol/L (3.5-5.1) 4.1 mmol/L (3.5-5.1) Chloride Level 96 mmol/L (98-107) 97 mmol/L (98-107) Carbon Dioxide Level 8 mmol/L (21-32) 12 mmol/L (21-32) Anion Gap 32 (6-14) 28 (6-14) Blood Urea Nitrogen 71 mg/dL (8-26) 66 mg/dL (8-26) Creatinine 4.1 mg/dL (0.7-1.3) 3.8 mg/dL (0.7-1.3) Estimated GFR (Cockcroft-Gault) 17.9 19.5 Glucose Level 1031 mg/dL (70-99) 952 mg/dL (70-99) 848 mg/dL (70-99) Lactic Acid Level 3.1 mmol/L (0.4-2.0) Calcium Level 7.1 mg/dL (8.5-10.1) 7.0 mg/dL (8.5-10.1) Phosphorus Level 9.2 mg/dL (2.6-4.7) 4.7 mg/dL (2.6-4.7) Magnesium Level 3.5 mg/dL (1.8-2.4) 3.1 mg/dL (1.8-2.4) Creatine Kinase 2316 U/L (39-308) Vitamin B12 Level 1787 pg/mL (247-911) Thyroid Stimulating Hormone (TSH) 4.191 uIU/mL (0.358-3.74) O2 Saturation 91 % (92-99) Arterial Blood pH 7.08 (7.35-7.45) Arterial Blood pCO2 at Patient Temp 29 mmHg (35-46) Arterial Blood pO2 at Patient Temp 65 mmHg (85-108) Arterial Blood HCO3 8 mmol/L (21-28) Arterial Blood Base Excess -20 mmol/L (-3-3) FiO2 50 Test 02/20/19 00:20 02/20/19 02:00 02/20/19 03:52 02/20/19 04:00 Sodium Level 141 mmol/L (136-145) 145 mmol/L (136-145) Potassium Level 3.7 mmol/L (3.5-5.1) 5.7 mmol/L (3.5-5.1) Chloride Level 102 mmol/L (98-107) 109 mmol/L (98-107) Carbon Dioxide Level 17 mmol/L (21-32) 24 mmol/L (21-32) Anion Gap 22 (6-14) 12 (6-14) Blood Urea Nitrogen 63 mg/dL (8-26) 57 mg/dL (8-26) Creatinine 3.7 mg/dL (0.7-1.3) 3.3 mg/dL (0.7-1.3) Estimated GFR (Cockcroft-Gault) 20.1 23.0 Glucose Level 639 mg/dL (70-99) 500 mg/dL (70-99) 358 mg/dL (70-99) Calcium Level 7.0 mg/dL (8.5-10.1) 7.1 mg/dL (8.5-10.1) Phosphorus Level 2.6 mg/dL (2.6-4.7) 1.3 mg/dL (2.6-4.7) Magnesium Level 2.9 mg/dL (1.8-2.4) 2.5 mg/dL (1.8-2.4) Glucose (Fingerstick) 358 mg/dL (70-99) White Blood Count 12.7 x10^3/uL (4.0-11.0) Red Blood Count 3.74 x10^6/uL (4.30-5.70) Hemoglobin 11.3 g/dL (13.0-17.5) Hematocrit 32.2 % (39.0-53.0) Mean Corpuscular Volume 86 fL (79-100) Mean Corpuscular Hemoglobin 30 pg (25-35) Mean Corpuscular Hemoglobin Concent 35 g/dL (31-37) Red Cell Distribution Width 11.7 % (11.5-14.5) Platelet Count 197 x10^3/uL (140-400) Neutrophils (%) (Auto) 87 % (31-73) Lymphocytes (%) (Auto) 7 % (24-48) Monocytes (%) (Auto) 5 % (0-9) Eosinophils (%) (Auto) 1 % (0-3) Basophils (%) (Auto) 0 % (0-3) Neutrophils # (Auto) 11.1 x10^3uL (1.8-7.7) Lymphocytes # (Auto) 0.9 x10^3/uL (1.0-4.8) Monocytes # (Auto) 0.6 x10^3/uL (0.0-1.1) Eosinophils # (Auto) 0.1 x10^3/uL (0.0-0.7) Basophils # (Auto) 0.0 x10^3/uL (0.0-0.2) Total Bilirubin 0.4 mg/dL (0.2-1.0) Direct Bilirubin 0.2 mg/dL (0.0-0.2) Aspartate Amino Transf (AST/SGOT) 938 U/L (15-37) Alanine Aminotransferase (ALT/SGPT) 345 U/L (16-63) Alkaline Phosphatase 106 U/L (46-116) Total Protein 5.1 g/dL (6.4-8.2) Albumin 2.7 g/dL (3.4-5.0) Test 02/20/19 05:03 02/20/19 06:10 02/20/19 07:56 Glucose (Fingerstick) 295 mg/dL (70-99) 265 mg/dL (70-99) 150 mg/dL (70-99) Medications Active Scripts Medications Dose Route/Sig Max Daily Dose Days Date Category Tums Ultra (Calcium Carbonate) 400 Mg Tab.chew 400 Mg PO BID 02/19/19 Reported Promethazine Hcl 25 Mg Tablet 1 Tab PO BID 02/19/19 Reported Hydroxyzine Hcl 25 Mg Tablet 25 Mg PO HS 02/19/19 Reported Humulin N (Nph, Human Insulin Isophane) 100 Unit/1 Ml Vial 24 Unit SQ DAILY08 02/19/19 Reported Humulin N (Nph, Human Insulin Isophane) 100 Unit/1 Ml Vial 17 Unit SQ HS 02/19/19 Reported Fluoxetine Hcl 20 Mg Capsule 1 Cap PO DAILY 02/19/19 Reported Famotidine 20 Mg Tablet 20 Mg PO BID 02/19/19 Reported Excedrin Migraine Caplet (Aspirin/Acetaminophen/Caffeine) 1 Each Tablet 2 Each PO PRN BID PRN 02/19/19 Reported Acetaminophen 500 Mg Tablet 2 Tab PO BID 02/19/19 Reported Comments CXR 02/20 increase interstitial markings Impression . 1. Respiratory failure secondary to cardiac arrest. 2. Diabetic ketoacidosis triggering cardiac arrest. 3. Shock, likely combination of hypovolemic and cardiac, cannot exclude septic shock.off pressor 4. Acute kidney injury. 5. Marked lactic acidosis and metabolic acidosis. 6. Acute renal failure. 7. Hyperkalemia. 8. Hyperglycemia with diabetic ketoacidosis. 9. Abnormal chest x-ray. 10. Mildly increased INR. 11. shock liver 12. Highly suspected anoxic encephalopathy/ myoclonic seizures Page of Plan . 1. Continue with present assist control mode and follow ABGs and make necessary adjustments. 2. Continue bicarbonate drip. 3. Prognosis appears to be guarded. He had 45 minutes of asystole and likely of anoxic brain injury is high. He also had hypothermia on arrival. 4. Hyperkalemia. 5. Acute renal failure. 6. Diabetic ketoacidosis , managed per PCP. Insulin protocol 7. Follow chest x-ray reviewed, suspect Non cardiogenic pulmonary edema. 8. Broad-spectrum antibiotics. 9. Insulin per protocol. 10. Infectious Disease recommendation. 11. Cardiology recommendation and obtain an echocardiogram. 12. Renal recommendation. 13. Stress ulcer prophylaxis. 14. Deep venous thrombosis prophylaxis. 15. Monitor OG output. 16. MRI brain today./ triggers the vent , not brain 16. Discussed with RN and RT. We will follow along with you. Critical care time 35 minutes. RIZWAN MAURER MD DR: LEX/pat JOB#: [id number] / [id number] DICTATED BY: RIZWAN MAURER MD 02/19/19 1742 RIZWAN MAURER MD Feb 20, 2019 09:14
[2019-02-20] MEDS ORDERED: VECURONIUM BOLUS 10 MG VIAL. IV ONE ×2 (09:15→13:45)
--- NOTE | 2019-02-20 09:26 | PDOC ---
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 History of Present Illness History of Present Illness no purposeful movement, not responding to noxious stimuli, chain of events and labs reviewed. Vitals Vitals Vital Signs Date Time Temp Pulse Resp B/P (MAP) Pulse Ox O2 Delivery O2 Flow Rate FiO2 02/20/19 08:00 100.3 118 100/58 (72) 99 Ventilator 100.3 02/20/19 06:00 28 Physical Exam General: Other (intuibated. no sedation with bloody NG output, ET ) Heart: Normal S1, Normal S2, Other (tachycardic) Lungs: Other (decrease bs) Abdomen: Normal bowel sounds, Soft, No tenderness, No hepatosplenomegaly, No masses Extremities: No clubbing, No cyanosis, No edema, Normal pulses, No tenderness/ swelling Skin: No rashes, No breakdown, No significant lesion Labs LABS Laboratory Tests Test 02/19/19 13:05 02/19/19 13:10 02/19/19 13:30 02/19/19 15:45 O2 Saturation 99 % (92-99) Arterial Blood pH 6.84 (7.35-7.45) Arterial Blood pCO2 at Patient Temp 29 mmHg (35-46) Arterial Blood pO2 at Patient Temp 309 mmHg (85-108) Arterial Blood HCO3 5 mmol/L (21-28) Arterial Blood Base Excess -29 mmol/L (-3-3) Oxyhemoglobin 98.0 % Methemoglobin 0.7 % (0.0-1.9) Carbon Monoxide, Quantitative 0.3 % (0.0-1.9) FiO2 60 White Blood Count 21.6 x10^3/uL (4.0-11.0) Red Blood Count 4.26 x10^6/uL (4.30-5.70) Hemoglobin 13.0 g/dL (13.0-17.5) Hematocrit 45.9 % (39.0-53.0) Mean Corpuscular Volume 108 fL (79-100) Mean Corpuscular Hemoglobin 31 pg (25-35) Mean Corpuscular Hemoglobin Concent 28 g/dL (31-37) Red Cell Distribution Width 13.6 % (11.5-14.5) Platelet Count 249 x10^3/uL (140-400) Neutrophils (%) (Auto) 77 % (31-73) Lymphocytes (%) (Auto) 19 % (24-48) Monocytes (%) (Auto) 4 % (0-9) Eosinophils (%) (Auto) 1 % (0-3) Basophils (%) (Auto) 0 % (0-3) Neutrophils # (Auto) 16.6 x10^3uL (1.8-7.7) Lymphocytes # (Auto) 4.0 x10^3/uL (1.0-4.8) Monocytes # (Auto) 0.9 x10^3/uL (0.0-1.1) Eosinophils # (Auto) 0.1 x10^3/uL (0.0-0.7) Basophils # (Auto) 0.1 x10^3/uL (0.0-0.2) Segmented Neutrophils % 66 % (35-66) Band Neutrophils % 14 % (0-9) Lymphocytes % 15 % (24-48) Monocytes % 4 % (0-10) Metamyelocytes % 1 % (0-0) Toxic Vacuolation Mod Platelet Estimate Adequate (ADEQUATE) Prothrombin Time 17.1 SEC (11.7-14.0) Prothromb Time International Ratio 1.4 (0.8-1.1) Sodium Level 124 mmol/L (136-145) Potassium Level 7.3 mmol/L (3.5-5.1) Chloride Level 81 mmol/L (98-107) Carbon Dioxide Level 8 mmol/L (21-32) Anion Gap 35 (6-14) Blood Urea Nitrogen 79 mg/dL (8-26) Creatinine 4.5 mg/dL (0.7-1.3) Estimated GFR (Cockcroft-Gault) 16.0 BUN/Creatinine Ratio 18 (6-20) Glucose Level 1510 mg/dL (70-99) 1153 mg/dL (70-99) Lactic Acid Level 9.0 mmol/L (0.4-2.0) Calcium Level 8.4 mg/dL (8.5-10.1) Phosphorus Level 17.5 mg/dL (2.6-4.7) Magnesium Level 5.0 mg/dL (1.8-2.4) Total Bilirubin 0.5 mg/dL (0.2-1.0) Aspartate Amino Transf (AST/SGOT) 902 U/L (15-37) Alanine Aminotransferase (ALT/SGPT) 464 U/L (16-63) Alkaline Phosphatase 159 U/L (46-116) Creatine Kinase 212 U/L (39-308) Troponin I Quantitative 0.041 ng/mL (0.000-0.055) JS-Sdz-[id number]-Type Natriuretic Peptide 1921 pg/mL (0-124) Total Protein 6.4 g/dL (6.4-8.2) Albumin 3.3 g/dL (3.4-5.0) Albumin/Globulin Ratio 1.1 (1.0-1.7) Lipase 139 U/L (73-393) Salicylates Level 4.9 mg/dL (2.8-20.0) Salicylate Last Dose Date Unk Salicylate Last Dose Time Unk Acetaminophen Level 2.69 mcg/ml (10-30) Acetaminophen Last Dose Date Unk Acetaminophen Last Dose Time Unk Acetone Level Mod pos (NEG) Urine Collection Type Unknown Urine Color Yellow Urine Clarity Clear Urine pH 5.0 Urine Specific [place] 1.025 Urine Protein Negative mg/dL (NEG-TRACE) Urine Glucose (UA) >=1000 mg/dL (NEG) Urine Ketones (Stick) >=80 mg/dL (NEG) Urine Blood Negative (NEG) Urine Nitrite Negative (NEG) Urine Bilirubin Negative (NEG) Urine Urobilinogen Dipstick 0.2 mg/dL (0.2 mg/dL) Urine Leukocyte Esterase Negative (NEG) Urine RBC 0 /HPF (0-2) Urine WBC 0 /HPF (0-4) Urine Squamous Epithelial Cells Few /LPF Urine Bacteria 0 /HPF (0-FEW) Urine Hyaline Casts Many /HPF Urine Mucus Slight /LPF Urine Opiates Screen Neg (NEG) Urine Methadone Screen Neg (NEG) Urine Barbiturates Neg (NEG) Urine Phencyclidine Screen Neg (NEG) Urine Amphetamine/Methamphetamine Neg (NEG) Urine Benzodiazepines Screen Neg (NEG) Urine Cocaine Screen Neg (NEG) Urine Cannabinoids Screen Neg (NEG) Urine Ethyl Alcohol Neg (NEG) Test 02/19/19 18:00 02/19/19 19:50 02/19/19 20:00 02/19/19 22:00 Sodium Level 136 mmol/L (136-145) 137 mmol/L (136-145) Potassium Level 4.7 mmol/L (3.5-5.1) 4.1 mmol/L (3.5-5.1) Chloride Level 96 mmol/L (98-107) 97 mmol/L (98-107) Carbon Dioxide Level 8 mmol/L (21-32) 12 mmol/L (21-32) Anion Gap 32 (6-14) 28 (6-14) Blood Urea Nitrogen 71 mg/dL (8-26) 66 mg/dL (8-26) Creatinine 4.1 mg/dL (0.7-1.3) 3.8 mg/dL (0.7-1.3) Estimated GFR (Cockcroft-Gault) 17.9 19.5 Glucose Level 1031 mg/dL (70-99) 952 mg/dL (70-99) 848 mg/dL (70-99) Lactic Acid Level 3.1 mmol/L (0.4-2.0) Calcium Level 7.1 mg/dL (8.5-10.1) 7.0 mg/dL (8.5-10.1) Phosphorus Level 9.2 mg/dL (2.6-4.7) 4.7 mg/dL (2.6-4.7) Magnesium Level 3.5 mg/dL (1.8-2.4) 3.1 mg/dL (1.8-2.4) Creatine Kinase 2316 U/L (39-308) Vitamin B12 Level 1787 pg/mL (247-911) Thyroid Stimulating Hormone (TSH) 4.191 uIU/mL (0.358-3.74) O2 Saturation 91 % (92-99) Arterial Blood pH 7.08 (7.35-7.45) Arterial Blood pCO2 at Patient Temp 29 mmHg (35-46) Arterial Blood pO2 at Patient Temp 65 mmHg (85-108) Arterial Blood HCO3 8 mmol/L (21-28) Arterial Blood Base Excess -20 mmol/L (-3-3) FiO2 50 Test 02/20/19 00:20 02/20/19 02:00 02/20/19 03:52 02/20/19 04:00 Sodium Level 141 mmol/L (136-145) 145 mmol/L (136-145) Potassium Level 3.7 mmol/L (3.5-5.1) 5.7 mmol/L (3.5-5.1) Chloride Level 102 mmol/L (98-107) 109 mmol/L (98-107) Carbon Dioxide Level 17 mmol/L (21-32) 24 mmol/L (21-32) Anion Gap 22 (6-14) 12 (6-14) Blood Urea Nitrogen 63 mg/dL (8-26) 57 mg/dL (8-26) Creatinine 3.7 mg/dL (0.7-1.3) 3.3 mg/dL (0.7-1.3) Estimated GFR (Cockcroft-Gault) 20.1 23.0 Glucose Level 639 mg/dL (70-99) 500 mg/dL (70-99) 358 mg/dL (70-99) Calcium Level 7.0 mg/dL (8.5-10.1) 7.1 mg/dL (8.5-10.1) Phosphorus Level 2.6 mg/dL (2.6-4.7) 1.3 mg/dL (2.6-4.7) Magnesium Level 2.9 mg/dL (1.8-2.4) 2.5 mg/dL (1.8-2.4) Glucose (Fingerstick) 358 mg/dL (70-99) White Blood Count 12.7 x10^3/uL (4.0-11.0) Red Blood Count 3.74 x10^6/uL (4.30-5.70) Hemoglobin 11.3 g/dL (13.0-17.5) Hematocrit 32.2 % (39.0-53.0) Mean Corpuscular Volume 86 fL (79-100) Mean Corpuscular Hemoglobin 30 pg (25-35) Mean Corpuscular Hemoglobin Concent 35 g/dL (31-37) Red Cell Distribution Width 11.7 % (11.5-14.5) Platelet Count 197 x10^3/uL (140-400) Neutrophils (%) (Auto) 87 % (31-73) Lymphocytes (%) (Auto) 7 % (24-48) Monocytes (%) (Auto) 5 % (0-9) Eosinophils (%) (Auto) 1 % (0-3) Basophils (%) (Auto) 0 % (0-3) Neutrophils # (Auto) 11.1 x10^3uL (1.8-7.7) Lymphocytes # (Auto) 0.9 x10^3/uL (1.0-4.8) Monocytes # (Auto) 0.6 x10^3/uL (0.0-1.1) Eosinophils # (Auto) 0.1 x10^3/uL (0.0-0.7) Basophils # (Auto) 0.0 x10^3/uL (0.0-0.2) Total Bilirubin 0.4 mg/dL (0.2-1.0) Direct Bilirubin 0.2 mg/dL (0.0-0.2) Aspartate Amino Transf (AST/SGOT) 938 U/L (15-37) Alanine Aminotransferase (ALT/SGPT) 345 U/L (16-63) Alkaline Phosphatase 106 U/L (46-116) Total Protein 5.1 g/dL (6.4-8.2) Albumin 2.7 g/dL (3.4-5.0) Test 02/20/19 05:03 02/20/19 06:10 02/20/19 07:56 Glucose (Fingerstick) 295 mg/dL (70-99) 265 mg/dL (70-99) 150 mg/dL (70-99) Review of Systems Review of Systems unable to test Assessment and Plan Assessmemt and Plan Problems Medical Problems: (1) Acute renal insufficiency Status: Acute (2) Cardiac arrest Status: Acute (3) Hepatic failure Status: Acute (4) History of sepsis Status: Acute (5) Hyperkalemia Status: Acute (6) Metabolic acidosis Status: Acute Comment Review of Relevant I have reviewed the following items bree (where applicable) has been applied. Labs Laboratory Tests Test 02/19/19 13:05 02/19/19 13:10 02/19/19 13:30 02/19/19 15:45 O2 Saturation 99 % (92-99) Arterial Blood pH 6.84 (7.35-7.45) Arterial Blood pCO2 at Patient Temp 29 mmHg (35-46) Arterial Blood pO2 at Patient Temp 309 mmHg (85-108) Arterial Blood HCO3 5 mmol/L (21-28) Arterial Blood Base Excess -29 mmol/L (-3-3) Oxyhemoglobin 98.0 % Methemoglobin 0.7 % (0.0-1.9) Carbon Monoxide, Quantitative 0.3 % (0.0-1.9) FiO2 60 White Blood Count 21.6 x10^3/uL (4.0-11.0) Red Blood Count 4.26 x10^6/uL (4.30-5.70) Hemoglobin 13.0 g/dL (13.0-17.5) Hematocrit 45.9 % (39.0-53.0) Mean Corpuscular Volume 108 fL (79-100) Mean Corpuscular Hemoglobin 31 pg (25-35) Mean Corpuscular Hemoglobin Concent 28 g/dL (31-37) Red Cell Distribution Width 13.6 % (11.5-14.5) Platelet Count 249 x10^3/uL (140-400) Neutrophils (%) (Auto) 77 % (31-73) Lymphocytes (%) (Auto) 19 % (24-48) Monocytes (%) (Auto) 4 % (0-9) Eosinophils (%) (Auto) 1 % (0-3) Basophils (%) (Auto) 0 % (0-3) Neutrophils # (Auto) 16.6 x10^3uL (1.8-7.7) Lymphocytes # (Auto) 4.0 x10^3/uL (1.0-4.8) Monocytes # (Auto) 0.9 x10^3/uL (0.0-1.1) Eosinophils # (Auto) 0.1 x10^3/uL (0.0-0.7) Basophils # (Auto) 0.1 x10^3/uL (0.0-0.2) Segmented Neutrophils % 66 % (35-66) Band Neutrophils % 14 % (0-9) Lymphocytes % 15 % (24-48) Monocytes % 4 % (0-10) Metamyelocytes % 1 % (0-0) Toxic Vacuolation Mod Platelet Estimate Adequate (ADEQUATE) Prothrombin Time 17.1 SEC (11.7-14.0) Prothromb Time International Ratio 1.4 (0.8-1.1) Sodium Level 124 mmol/L (136-145) Potassium Level 7.3 mmol/L (3.5-5.1) Chloride Level 81 mmol/L (98-107) Carbon Dioxide Level 8 mmol/L (21-32) Anion Gap 35 (6-14) Blood Urea Nitrogen 79 mg/dL (8-26) Creatinine 4.5 mg/dL (0.7-1.3) Estimated GFR (Cockcroft-Gault) 16.0 BUN/Creatinine Ratio 18 (6-20) Glucose Level 1510 mg/dL (70-99) 1153 mg/dL (70-99) Lactic Acid Level 9.0 mmol/L (0.4-2.0) Calcium Level 8.4 mg/dL (8.5-10.1) Phosphorus Level 17.5 mg/dL (2.6-4.7) Magnesium Level 5.0 mg/dL (1.8-2.4) Total Bilirubin 0.5 mg/dL (0.2-1.0) Aspartate Amino Transf (AST/SGOT) 902 U/L (15-37) Alanine Aminotransferase (ALT/SGPT) 464 U/L (16-63) Alkaline Phosphatase 159 U/L (46-116) Creatine Kinase 212 U/L (39-308) Troponin I Quantitative 0.041 ng/mL (0.000-0.055) VD-Uaz-F-Type Natriuretic Peptide 1921 pg/mL (0-124) Total Protein 6.4 g/dL (6.4-8.2) Albumin 3.3 g/dL (3.4-5.0) Albumin/Globulin Ratio 1.1 (1.0-1.7) Lipase 139 U/L (73-393) Salicylates Level 4.9 mg/dL (2.8-20.0) Salicylate Last Dose Date Unk Salicylate Last Dose Time Unk Acetaminophen Level 2.69 mcg/ml (10-30) Acetaminophen Last Dose Date Unk Acetaminophen Last Dose Time Unk Acetone Level Mod pos (NEG) Urine Collection Type Unknown Urine Color Yellow Urine Clarity Clear Urine pH 5.0 Urine Specific [place] 1.025 Urine Protein Negative mg/dL (NEG-TRACE) Urine Glucose (UA) >=1000 mg/dL (NEG) Urine Ketones (Stick) >=80 mg/dL (NEG) Urine Blood Negative (NEG) Urine Nitrite Negative (NEG) Urine Bilirubin Negative (NEG) Urine Urobilinogen Dipstick 0.2 mg/dL (0.2 mg/dL) Urine Leukocyte Esterase Negative (NEG) Urine RBC 0 /HPF (0-2) Urine WBC 0 /HPF (0-4) Urine Squamous Epithelial Cells Few /LPF Urine Bacteria 0 /HPF (0-FEW) Urine Hyaline Casts Many /HPF Urine Mucus Slight /LPF Urine Opiates Screen Neg (NEG) Urine Methadone Screen Neg (NEG) Urine Barbiturates Neg (NEG) Urine Phencyclidine Screen Neg (NEG) Urine Amphetamine/Methamphetamine Neg (NEG) Urine Benzodiazepines Screen Neg (NEG) Urine Cocaine Screen Neg (NEG) Urine Cannabinoids Screen Neg (NEG) Urine Ethyl Alcohol Neg (NEG) Test 02/19/19 18:00 02/19/19 19:50 02/19/19 20:00 02/19/19 22:00 Sodium Level 136 mmol/L (136-145) 137 mmol/L (136-145) Potassium Level 4.7 mmol/L (3.5-5.1) 4.1 mmol/L (3.5-5.1) Chloride Level 96 mmol/L (98-107) 97 mmol/L (98-107) Carbon Dioxide Level 8 mmol/L (21-32) 12 mmol/L (21-32) Anion Gap 32 (6-14) 28 (6-14) Blood Urea Nitrogen 71 mg/dL (8-26) 66 mg/dL (8-26) Creatinine 4.1 mg/dL (0.7-1.3) 3.8 mg/dL (0.7-1.3) Estimated GFR (Cockcroft-Gault) 17.9 19.5 Glucose Level 1031 mg/dL (70-99) 952 mg/dL (70-99) 848 mg/dL (70-99) Lactic Acid Level 3.1 mmol/L (0.4-2.0) Calcium Level 7.1 mg/dL (8.5-10.1) 7.0 mg/dL (8.5-10.1) Phosphorus Level 9.2 mg/dL (2.6-4.7) 4.7 mg/dL (2.6-4.7) Magnesium Level 3.5 mg/dL (1.8-2.4) 3.1 mg/dL (1.8-2.4) Creatine Kinase 2316 U/L (39-308) Vitamin B12 Level 1787 pg/mL (247-911) Thyroid Stimulating Hormone (TSH) 4.191 uIU/mL (0.358-3.74) O2 Saturation 91 % (92-99) Arterial Blood pH 7.08 (7.35-7.45) Arterial Blood pCO2 at Patient Temp 29 mmHg (35-46) Arterial Blood pO2 at Patient Temp 65 mmHg (85-108) Arterial Blood HCO3 8 mmol/L (21-28) Arterial Blood Base Excess -20 mmol/L (-3-3) FiO2 50 Test 02/20/19 00:20 02/20/19 02:00 02/20/19 03:52 02/20/19 04:00 Sodium Level 141 mmol/L (136-145) 145 mmol/L (136-145) Potassium Level 3.7 mmol/L (3.5-5.1) 5.7 mmol/L (3.5-5.1) Chloride Level 102 mmol/L (98-107) 109 mmol/L (98-107) Carbon Dioxide Level 17 mmol/L (21-32) 24 mmol/L (21-32) Anion Gap 22 (6-14) 12 (6-14) Blood Urea Nitrogen 63 mg/dL (8-26) 57 mg/dL (8-26) Creatinine 3.7 mg/dL (0.7-1.3) 3.3 mg/dL (0.7-1.3) Estimated GFR (Cockcroft-Gault) 20.1 23.0 Glucose Level 639 mg/dL (70-99) 500 mg/dL (70-99) 358 mg/dL (70-99) Calcium Level 7.0 mg/dL (8.5-10.1) 7.1 mg/dL (8.5-10.1) Phosphorus Level 2.6 mg/dL (2.6-4.7) 1.3 mg/dL (2.6-4.7) Magnesium Level 2.9 mg/dL (1.8-2.4) 2.5 mg/dL (1.8-2.4) Glucose (Fingerstick) 358 mg/dL (70-99) White Blood Count 12.7 x10^3/uL (4.0-11.0) Red Blood Count 3.74 x10^6/uL (4.30-5.70) Hemoglobin 11.3 g/dL (13.0-17.5) Hematocrit 32.2 % (39.0-53.0) Mean Corpuscular Volume 86 fL (79-100) Mean Corpuscular Hemoglobin 30 pg (25-35) Mean Corpuscular Hemoglobin Concent 35 g/dL (31-37) Red Cell Distribution Width 11.7 % (11.5-14.5) Platelet Count 197 x10^3/uL (140-400) Neutrophils (%) (Auto) 87 % (31-73) Lymphocytes (%) (Auto) 7 % (24-48) Monocytes (%) (Auto) 5 % (0-9) Eosinophils (%) (Auto) 1 % (0-3) Basophils (%) (Auto) 0 % (0-3) Neutrophils # (Auto) 11.1 x10^3uL (1.8-7.7) Lymphocytes # (Auto) 0.9 x10^3/uL (1.0-4.8) Monocytes # (Auto) 0.6 x10^3/uL (0.0-1.1) Eosinophils # (Auto) 0.1 x10^3/uL (0.0-0.7) Basophils # (Auto) 0.0 x10^3/uL (0.0-0.2) Total Bilirubin 0.4 mg/dL (0.2-1.0) Direct Bilirubin 0.2 mg/dL (0.0-0.2) Aspartate Amino Transf (AST/SGOT) 938 U/L (15-37) Alanine Aminotransferase (ALT/SGPT) 345 U/L (16-63) Alkaline Phosphatase 106 U/L (46-116) Total Protein 5.1 g/dL (6.4-8.2) Albumin 2.7 g/dL (3.4-5.0) Test 02/20/19 05:03 02/20/19 06:10 02/20/19 07:56 Glucose (Fingerstick) 295 mg/dL (70-99) 265 mg/dL (70-99) 150 mg/dL (70-99) Laboratory Tests Test 02/19/19 13:05 02/19/19 13:10 02/19/19 13:30 02/19/19 15:45 O2 Saturation 99 % (92-99) Arterial Blood pH 6.84 (7.35-7.45) Arterial Blood pCO2 at Patient Temp 29 mmHg (35-46) Arterial Blood pO2 at Patient Temp 309 mmHg (85-108) Arterial Blood HCO3 5 mmol/L (21-28) Arterial Blood Base Excess -29 mmol/L (-3-3) Oxyhemoglobin 98.0 % Methemoglobin 0.7 % (0.0-1.9) Carbon Monoxide, Quantitative 0.3 % (0.0-1.9) FiO2 60 White Blood Count 21.6 x10^3/uL (4.0-11.0) Red Blood Count 4.26 x10^6/uL (4.30-5.70) Hemoglobin 13.0 g/dL (13.0-17.5) Hematocrit 45.9 % (39.0-53.0) Mean Corpuscular Volume 108 fL (79-100) Mean Corpuscular Hemoglobin 31 pg (25-35) Mean Corpuscular Hemoglobin Concent 28 g/dL (31-37) Red Cell Distribution Width 13.6 % (11.5-14.5) Platelet Count 249 x10^3/uL (140-400) Neutrophils (%) (Auto) 77 % (31-73) Lymphocytes (%) (Auto) 19 % (24-48) Monocytes (%) (Auto) 4 % (0-9) Eosinophils (%) (Auto) 1 % (0-3) Basophils (%) (Auto) 0 % (0-3) Neutrophils # (Auto) 16.6 x10^3uL (1.8-7.7) Lymphocytes # (Auto) 4.0 x10^3/uL (1.0-4.8) Monocytes # (Auto) 0.9 x10^3/uL (0.0-1.1) Eosinophils # (Auto) 0.1 x10^3/uL (0.0-0.7) Basophils # (Auto) 0.1 x10^3/uL (0.0-0.2) Segmented Neutrophils % 66 % (35-66) Band Neutrophils % 14 % (0-9) Lymphocytes % 15 % (24-48) Monocytes % 4 % (0-10) Metamyelocytes % 1 % (0-0) Toxic Vacuolation Mod Platelet Estimate Adequate (ADEQUATE) Prothrombin Time 17.1 SEC (11.7-14.0) Prothromb Time International Ratio 1.4 (0.8-1.1) Sodium Level 124 mmol/L (136-145) Potassium Level 7.3 mmol/L (3.5-5.1) Chloride Level 81 mmol/L (98-107) Carbon Dioxide Level 8 mmol/L (21-32) Anion Gap 35 (6-14) Blood Urea Nitrogen 79 mg/dL (8-26) Creatinine 4.5 mg/dL (0.7-1.3) Estimated GFR (Cockcroft-Gault) 16.0 BUN/Creatinine Ratio 18 (6-20) Glucose Level 1510 mg/dL (70-99) 1153 mg/dL (70-99) Lactic Acid Level 9.0 mmol/L (0.4-2.0) Calcium Level 8.4 mg/dL (8.5-10.1) Phosphorus Level 17.5 mg/dL (2.6-4.7) Magnesium Level 5.0 mg/dL (1.8-2.4) Total Bilirubin 0.5 mg/dL (0.2-1.0) Aspartate Amino Transf (AST/SGOT) 902 U/L (15-37) Alanine Aminotransferase (ALT/SGPT) 464 U/L (16-63) Alkaline Phosphatase 159 U/L (46-116) Creatine Kinase 212 U/L (39-308) Troponin I Quantitative 0.041 ng/mL (0.000-0.055) BN-Dog-V-Type Natriuretic Peptide 1921 pg/mL (0-124) Total Protein 6.4 g/dL (6.4-8.2) Albumin 3.3 g/dL (3.4-5.0) Albumin/Globulin Ratio 1.1 (1.0-1.7) Lipase 139 U/L (73-393) Salicylates Level 4.9 mg/dL (2.8-20.0) Salicylate Last Dose Date Unk Salicylate Last Dose Time Unk Acetaminophen Level 2.69 mcg/ml (10-30) Acetaminophen Last Dose Date Unk Acetaminophen Last Dose Time Unk Acetone Level Mod pos (NEG) Urine Collection Type Unknown Urine Color Yellow Urine Clarity Clear Urine pH 5.0 Urine Specific [place] 1.025 Urine Protein Negative mg/dL (NEG-TRACE) Urine Glucose (UA) >=1000 mg/dL (NEG) Urine Ketones (Stick) >=80 mg/dL (NEG) Urine Blood Negative (NEG) Urine Nitrite Negative (NEG) Urine Bilirubin Negative (NEG) Urine Urobilinogen Dipstick 0.2 mg/dL (0.2 mg/dL) Urine Leukocyte Esterase Negative (NEG) Urine RBC 0 /HPF (0-2) Urine WBC 0 /HPF (0-4) Urine Squamous Epithelial Cells Few /LPF Urine Bacteria 0 /HPF (0-FEW) Urine Hyaline Casts Many /HPF Urine Mucus Slight /LPF Urine Opiates Screen Neg (NEG) Urine Methadone Screen Neg (NEG) Urine Barbiturates Neg (NEG) Urine Phencyclidine Screen Neg (NEG) Urine Amphetamine/Methamphetamine Neg (NEG) Urine Benzodiazepines Screen Neg (NEG) Urine Cocaine Screen Neg (NEG) Urine Cannabinoids Screen Neg (NEG) Urine Ethyl Alcohol Neg (NEG) Test 02/19/19 18:00 02/19/19 19:50 02/19/19 20:00 02/19/19 22:00 Sodium Level 136 mmol/L (136-145) 137 mmol/L (136-145) Potassium Level 4.7 mmol/L (3.5-5.1) 4.1 mmol/L (3.5-5.1) Chloride Level 96 mmol/L (98-107) 97 mmol/L (98-107) Carbon Dioxide Level 8 mmol/L (21-32) 12 mmol/L (21-32) Anion Gap 32 (6-14) 28 (6-14) Blood Urea Nitrogen 71 mg/dL (8-26) 66 mg/dL (8-26) Creatinine 4.1 mg/dL (0.7-1.3) 3.8 mg/dL (0.7-1.3) Estimated GFR (Cockcroft-Gault) 17.9 19.5 Glucose Level 1031 mg/dL (70-99) 952 mg/dL (70-99) 848 mg/dL (70-99) Lactic Acid Level 3.1 mmol/L (0.4-2.0) Calcium Level 7.1 mg/dL (8.5-10.1) 7.0 mg/dL (8.5-10.1) Phosphorus Level 9.2 mg/dL (2.6-4.7) 4.7 mg/dL (2.6-4.7) Magnesium Level 3.5 mg/dL (1.8-2.4) 3.1 mg/dL (1.8-2.4) Creatine Kinase 2316 U/L (39-308) Vitamin B12 Level 1787 pg/mL (247-911) Thyroid Stimulating Hormone (TSH) 4.191 uIU/mL (0.358-3.74) O2 Saturation 91 % (92-99) Arterial Blood pH 7.08 (7.35-7.45) Arterial Blood pCO2 at Patient Temp 29 mmHg (35-46) Arterial Blood pO2 at Patient Temp 65 mmHg (85-108) Arterial Blood HCO3 8 mmol/L (21-28) Arterial Blood Base Excess -20 mmol/L (-3-3) FiO2 50 Test 02/20/19 00:20 02/20/19 02:00 02/20/19 03:52 02/20/19 04:00 Sodium Level 141 mmol/L (136-145) 145 mmol/L (136-145) Potassium Level 3.7 mmol/L (3.5-5.1) 5.7 mmol/L (3.5-5.1) Chloride Level 102 mmol/L (98-107) 109 mmol/L (98-107) Carbon Dioxide Level 17 mmol/L (21-32) 24 mmol/L (21-32) Anion Gap 22 (6-14) 12 (6-14) Blood Urea Nitrogen 63 mg/dL (8-26) 57 mg/dL (8-26) Creatinine 3.7 mg/dL (0.7-1.3) 3.3 mg/dL (0.7-1.3) Estimated GFR (Cockcroft-Gault) 20.1 23.0 Glucose Level 639 mg/dL (70-99) 500 mg/dL (70-99) 358 mg/dL (70-99) Calcium Level 7.0 mg/dL (8.5-10.1) 7.1 mg/dL (8.5-10.1) Phosphorus Level 2.6 mg/dL (2.6-4.7) 1.3 mg/dL (2.6-4.7) Magnesium Level 2.9 mg/dL (1.8-2.4) 2.5 mg/dL (1.8-2.4) Glucose (Fingerstick) 358 mg/dL (70-99) White Blood Count 12.7 x10^3/uL (4.0-11.0) Red Blood Count 3.74 x10^6/uL (4.30-5.70) Hemoglobin 11.3 g/dL (13.0-17.5) Hematocrit 32.2 % (39.0-53.0) Mean Corpuscular Volume 86 fL (79-100) Mean Corpuscular Hemoglobin 30 pg (25-35) Mean Corpuscular Hemoglobin Concent 35 g/dL (31-37) Red Cell Distribution Width 11.7 % (11.5-14.5) Platelet Count 197 x10^3/uL (140-400) Neutrophils (%) (Auto) 87 % (31-73) Lymphocytes (%) (Auto) 7 % (24-48) Monocytes (%) (Auto) 5 % (0-9) Eosinophils (%) (Auto) 1 % (0-3) Basophils (%) (Auto) 0 % (0-3) Neutrophils # (Auto) 11.1 x10^3uL (1.8-7.7) Lymphocytes # (Auto) 0.9 x10^3/uL (1.0-4.8) Monocytes # (Auto) 0.6 x10^3/uL (0.0-1.1) Eosinophils # (Auto) 0.1 x10^3/uL (0.0-0.7) Basophils # (Auto) 0.0 x10^3/uL (0.0-0.2) Total Bilirubin 0.4 mg/dL (0.2-1.0) Direct Bilirubin 0.2 mg/dL (0.0-0.2) Aspartate Amino Transf (AST/SGOT) 938 U/L (15-37) Alanine Aminotransferase (ALT/SGPT) 345 U/L (16-63) Alkaline Phosphatase 106 U/L (46-116) Total Protein 5.1 g/dL (6.4-8.2) Albumin 2.7 g/dL (3.4-5.0) Test 02/20/19 05:03 02/20/19 06:10 02/20/19 07:56 Glucose (Fingerstick) 295 mg/dL (70-99) 265 mg/dL (70-99) 150 mg/dL (70-99) Medications Current Medications Sodium Chloride 1,000 ml @ 1,000 mls/hr Q1H IV Last administered on 02/19/19at 13:00; Start 02/19/19 at 13:30; Stop 02/19/19 at 14:29; Status DC Sodium Chloride 1,000 ml @ 1,000 mls/hr 1X ONCE IV Last administered on at 13:00; Start 02/19/19 at 13:15; Stop 02/19/19 at 14:14; Status DC Insulin Human Regular (HumuLIN R VIAL) 10 unit 1X ONCE IV Last administered on 02/19/19at 13:34; Start 02/19/19 at 13:15; Stop 02/19/19 at 13:23; Status DC Insulin Human Regular 150 ml @ 7 mls/hr 1X ONCE IV Last administered on at 13:42; Start 02/19/19 at 13:15; Stop 02/20/19 at 10:40 Iohexol (Omnipaque 300 Mg/ml) 75 ml 1X ONCE IV ; Start 02/19/19 at 13:30; Stop 02/19/19 at 13:31; Status DC Sodium Chloride 1,000 ml @ 1,000 mls/hr 1X ONCE IV Last administered on at 13:30; Start 02/19/19 at 13:30; Stop 02/19/19 at 14:29; Status DC Info (CONTRAST GIVEN -- Rx MONITORING) 1 each PRN DAILY PRN MC SEE COMMENTS; Start 02/19/19 at 13:30; Stop 02/21/19 at 13:29 Insulin Human Regular 150 ml @ As Directed STK-MED ONCE IV ; Start 02/19/19 at 13:23; Stop 02/19/19 at 13:24; Status DC Norepinephrine Bitartrate 250 ml @ 0 mls/hr 1X ONCE IV Last administered on 02/19/19at 13:37; Start 02/19/19 at 13:30; Stop 02/19/19 at 13:31; Status DC Pantoprazole Sodium (PROTONIX VIAL for IV PUSH) 40 mg DAILYAC IVP Last administered on 02/20/19at 08:47; Start 02/20/19 at 07:30 Pantoprazole Sodium (PROTONIX VIAL for IV PUSH) 40 mg 1X ONCE IVP Last administered on 02/19/19at 16:26; Start 02/19/19 at 14:00; Stop 02/19/19 at 14:01; Status DC Ondansetron HCl (Zofran) 4 mg PRN Q6HRS PRN IV NAUSEA/VOMITING; Start 02/19/19 at 14:00 Morphine Sulfate (Morphine Sulfate) 2 mg PRN Q2HR PRN IV PAIN; Start 02/19/19 at 14:00 Enoxaparin Sodium (Lovenox 40mg Syringe) 40 mg Q24H SQ ; Start 02/20/19 at 09:00 Enoxaparin Sodium (Lovenox 40mg Syringe) 40 mg 1X ONCE SQ Last administered on 02/19/19at 16:27; Start 02/19/19 at 14:00; Stop 02/19/19 at 14:01; Status DC Insulin Human Lispro (HumaLOG) 0-9 UNITS TIDWMEALS SQ ; Start 02/19/19 at 17:00; Stop 02/19/19 at 17:00; Status DC Dextrose (Dextrose 50%-Water Syringe) 12.5 gm PRN Q15MIN PRN IV SEE COMMENTS; Start 02/19/19 at 14:00; Stop 02/19/19 at 14:38; Status DC Sodium Chloride 1,000 ml @ 125 mls/hr Q8H IV ; Start 02/19/19 at 14:00; Status UNV Sodium Bicarbonate 150 meq/Dextrose 1,150 ml @ 125 mls/hr Q9H12M IV ; Start 02/19/19 at 14:15; Stop 02/19/19 at 14:15; Status DC Sodium Bicarbonate 150 meq/Sterile Water 1,150 ml @ 125 mls/hr 1X ONCE IV Last administered on 02/19/19at 15:52; Start 02/19/19 at 14:15; Stop 02/19/19 at 23: 26; Status DC Insulin Human Lispro (HumaLOG) 0-9 UNITS Q6HRS SQ ; Start 02/19/19 at 18:00 Insulin Human Regular 150 unit/ Sodium Chloride 151.5 ml @ 0 mls/hr CONT PRN IV SEE I/O RECORD Last administered on 02/20/19at 05:47; Start 02/19/19 at 14:30 Dextrose (Dextrose 50%-Water Syringe) 12.5 gm PRN Q15MIN PRN IV LOW BLOOD SUGAR ; Start 02/19/19 at 14:30 Sodium Chloride 1,000 ml @ 250 mls/hr Q4H IV Last administered on 02/20/19at 06 :38; Start 02/19/19 at 14:28 Dextrose/Sodium Chloride 1,000 ml @ 250 mls/hr Q4H IV Last administered on 08/31at 08:43; Start 02/19/19 at 14:28 Insulin Human Regular 150 unit/ Sodium Chloride 151.5 ml @ 0 mls/hr CONT PRN PRN IV PER PROTOCOL; Start 02/19/19 at 14:30; Status UNV Calcium Gluconate (Calcium Gluconate) 1,000 mg 1X ONCE IVP Last administered on 02/19/19at 16:01; Start 02/19/19 at 14:30; Stop 02/19/19 at 14:39; Status DC Sodium Polystyrene Sulfonate (Kayexalate) 15 gm 1X ONCE PO Last administered on 02/19/19at 16:30; Start 02/19/19 at 14:30; Stop 02/19/19 at 14:39; Status DC Insulin Human Regular (HumuLIN R VIAL) 10 unit 1X ONCE IV ; Start 02/19/19 at 14 :30; Stop 02/19/19 at 14:39; Status DC Piperacillin Sod/ Tazobactam Sod 3.375 gm/Sodium Chloride 50 ml @ 100 mls/hr 1X ONCE IV Last administered on 02/19/19at 15:15; Start 02/19/19 at 15:15; Stop 02/19/19 at 15:44; Status DC Vancomycin HCl 250 ml @ 250 mls/hr 1X STAT IV ; Start 02/19/19 at 15:04; Stop 02/19/19 at 16:03; Status DC Sodium Chloride 1,000 ml @ 1,000 mls/hr 1X ONCE IV Last administered on at 16:09; Start 02/19/19 at 15:15; Stop 02/19/19 at 16:14; Status DC Vancomycin HCl 1 gm/Sodium Chloride 250 ml @ 250 mls/hr 1X ONCE IV Last administered on 02/19/19at 17:58; Start 02/19/19 at 18:30; Stop 02/19/19 at 19:29; Status DC Sodium Bicarbonate 150 meq/Sterile Water 1,150 ml @ 125 mls/hr Q9H12M IV Last administered on 02/20/19at 05:38; Start 02/19/19 at 20:00 Norepinephrine Bitartrate 250 ml @ 1.875 mls/ hr CONT PRN IV SEE I/O RECORD; Start 02/19/19 at 21:15 Levetiracetam 750 mg/Dextrose 107.5 ml @ 420 mls/hr Q12HR IV Last administered on 02/20/19at 08:42; Start 02/19/19 at 22:00 Potassium Chloride/Water 50 ml @ 50 mls/hr Q1H IV Last administered on at 04:10; Start 02/20/19 at 02:30; Stop 02/20/19 at 04:30; Status DC Sodium Phosphate 20 mmol/Dextrose 256.6667 ml @ 64.167 m... 1X ONCE IV Last administered on 02/20/19at 08:45; Start 02/20/19 at 08:00; Stop 02/20/19 at 11:59 Vecuronium [place] (Norcuron Bolus) 10 mg 1X ONCE IV ; Start 02/20/19 at 09:15 ; Stop 02/20/19 at 09:16; Status DC Active Scripts Active Reported Tums Ultra (Calcium Carbonate) 400 Mg Tab.chew 400 Mg PO BID Promethazine Hcl 25 Mg Tablet 1 Tab PO BID Hydroxyzine Hcl 25 Mg Tablet 25 Mg PO HS Humulin N (Nph, Human Insulin Isophane) 100 Unit/1 Ml Vial 24 Unit SQ DAILY08 Humulin N (Nph, Human Insulin Isophane) 100 Unit/1 Ml Vial 17 Unit SQ HS Fluoxetine Hcl 20 Mg Capsule 1 Cap PO DAILY Famotidine 20 Mg Tablet 20 Mg PO BID Excedrin Migraine Caplet (Aspirin/Acetaminophen/Caffeine) 1 Each Tablet 2 Each PO PRN BID PRN Acetaminophen 500 Mg Tablet 2 Tab PO BID Vitals/I & O Vital Sign - Last 24 Hours 02/19/19 02/19/19 02/19/19 02/19/19 13:00 13:00 13:12 13:17 Temp 98.7 98.7 Pulse 89 100 82 Resp 18 18 18 B/P (MAP) 81/35 (50) 75/39 (51) Pulse Ox 99 100 100 100 O2 Delivery Ventilator Ventilator Ventilator 02/19/19 02/19/19 02/19/19 02/19/19 13:22 13:32 13:37 13:42 Pulse 82 82 82 82 Resp 18 16 18 16 B/P (MAP) 71/37 (48) 76/33 (47) 70/35 (47) 78/34 (49) Pulse Ox 100 100 100 100 O2 Delivery Ventilator 02/19/19 02/19/19 02/19/19 02/19/19 13:47 13:52 13:57 14:00 Pulse 82 82 82 89 Resp 18 20 18 18 B/P (MAP) 89/41 (57) 98/41 (60) 82/32 (49) 68/40 (49) Pulse Ox 100 100 100 100 O2 Delivery Ventilator Ventilator 02/19/19 02/19/19 02/19/19 02/19/19 14:07 14:12 14:22 14:32 Pulse 82 84 82 84 Resp 18 18 18 18 B/P (MAP) 102/43 (62) 108/53 (71) 110/52 (71) 113/55 (74) Pulse Ox 100 100 100 100 O2 Delivery Ventilator Ventilator 02/19/19 02/19/19 02/19/19 02/19/19 14:42 14:52 15:02 15:17 Pulse 84 84 84 86 Resp 18 24 24 24 B/P (MAP) 111/56 (74) 116/55 (75) 110/55 (73) 113/57 (75) Pulse Ox 100 100 100 100 O2 Delivery Ventilator Ventilator 02/19/19 02/19/19 02/19/19 02/19/19 15:30 15:32 15:47 16:02 Pulse 86 86 88 Resp 24 24 24 B/P (MAP) 101/56 (71) 111/53 (72) 104/49 (67) Pulse Ox 99 100 100 100 O2 Delivery Ventilator Ventilator 02/19/19 02/19/19 02/19/19 02/19/19 16:22 16:34 16:37 16:47 Temp 91.9 91.9 Pulse 86 86 88 Resp 24 24 24 B/P (MAP) 109/49 (69) 99/48 (65) 111/54 (73) Pulse Ox 99 100 100 O2 Delivery Ventilator Ventilator 02/19/19 02/19/19 02/19/19 02/19/19 17:00 17:15 18:02 18:13 Temp 91.6 91.9 91.6 91.9 Pulse 88 93 Resp 22 22 B/P (MAP) 106/47 (66) 93/44 (60) Pulse Ox 93 94 93 O2 Delivery Ventilator Mechanical Ventilator Ventilator Ventilator 02/19/19 02/19/19 02/19/19 02/19/19 19:00 19:50 20:00 20:00 Temp 96.9 96.9 Pulse 101 113 Resp 24 27 B/P (MAP) 97/50 (66) 108/58 (75) Pulse Ox 93 92 96 O2 Delivery Ventilator Ventilator Ventilator Mechanical Ventilator 02/19/19 02/19/19 02/19/19 02/19/19 21:00 22:00 23:00 23:02 Pulse 113 120 116 Resp 28 32 32 B/P (MAP) 120/63 (82) 132/65 (87) 101/65 (77) Pulse Ox 94 94 97 96 O2 Delivery Ventilator Ventilator Ventilator Ventilator 02/19/19 02/20/19 02/20/19 02/20/19 23:59 00:00 01:00 01:05 Temp 98.6 98.6 Pulse 117 113 Resp 30 28 B/P (MAP) 108/63 (78) 100/63 (75) Pulse Ox 95 94 98 O2 Delivery Mechanical Ventilator Ventilator Ventilator Ventilator 02/20/19 02/20/19 02/20/19 02/20/19 02:00 03:00 03:50 04:00 Temp 99.6 99.6 Pulse 118 117 119 Resp 30 26 22 B/P (MAP) 104/61 (75) 95/61 (72) 82/64 (70) Pulse Ox 97 99 100 97 O2 Delivery Ventilator Ventilator Ventilator Ventilator 02/20/19 02/20/19 02/20/19 02/20/19 04:00 05:00 05:30 06:00 Pulse 120 120 Resp 32 28 B/P (MAP) 96/60 (72) 95/58 (70) Pulse Ox 98 100 94 O2 Delivery Mechanical Ventilator Ventilator Ventilator Ventilator 02/20/19 02/20/19 07:00 08:00 Temp 100.3 100.3 Pulse 120 118 B/P (MAP) 100/58 (72) Pulse Ox 100 99 O2 Delivery Ventilator Ventilator Intake and Output 02/19/19 02/19/19 02/20/19 15:00 23:00 07:00 Intake Total 3000 ml 1357 ml 4557 ml Output Total 700 ml 1170 ml 1775 ml Balance 2300 ml 187 ml 2782 ml RODO DYE MD Feb 20, 2019 09:26
[2019-02-20 09:39] LABS: BASE EXCESS ABG 2 mmol/L (-3-3); CORRECTED PCO2 ABG 29 mmHg; CORRECTED PH ABG 7.52; CORRECTED PO2 ABG 199 mmHg; HCO3 ABG 23 mmol/L (21-28); PCO2 ABG 28 mmHg (35-46); PO2 ABG 194 mmHg (85-108); SAT O2 ABG 99 % (92-99)
[2019-02-20 09:53] LABS: FIO2 ABG 50
[2019-02-20] MEDS ORDERED: LACOSAMIDE 100 MG in IV DEXTROSE 5% 50 ML IV SCH (12:00)
--- NOTE | 2019-02-20 12:46 | CARD ---
MR#: [id number] Date of Study: 02/20/2019 Ordering Physician: JAYLEN BROWN, Referring Physician: JESSE FULLER Tech: Ana Laura Ortega APPROVED REPORT EXAM: Two-dimensional and M-mode echocardiogram with Doppler and color Doppler. Other Information Quality : AverageHR: 112bpm Technically limited study due to convulsions INDICATION Cardiac Arrest 2D DIMENSIONS RVDd2.0 (2.9-3.5cm)Left Atrium(2D)2.6 (1.6-4.0cm) IVSd0.9 (0.7-1.1cm)Aortic Root(2D)2.8 (2.0-3.7cm) LVDd4.2 (3.9-5.9cm)LVOT Diameter1.8 (1.8-2.4cm) PWd0.9 (0.7-1.1cm)LVDs2.8 (2.5-4.0cm) FS (%) 33.7 %SV49.9 ml LVEF(%)62.8 (>50%) Aortic Valve AoV Peak Wolf.109.4cm/sAoV VTI19.6cm AO Peak GR.4.8mmHgLVOT VTI 14.18cm AO Mean GR.5mmHg Mitral Valve MV E Cmagnjmu26.0cm/sMV DECEL YYFA020ws MV A Dbjbqgtb65.9cm/sE/A Ratio0.9 TDI Lateral E' P. V12.87cm/sMedial E' P. V7.79cm/s E/Lateral E'4.7E/Medial E'7.8 Tricuspid Valve TR P. Yrdilamh336tg/sRAP ZTQWEGPV1ulTt TR Peak Gr.68fvWcTESI00neMu Pulmonary Vein S1 Elkhcsdx49.0cm/sS2 Kekoodps20.73cm/s D2 Nezcqanz77.7cm/sPVa [id number] LEFT VENTRICLE The left ventricle is normal size. There is normal left ventricular wall thickness. The left ventricu lar systolic function is normal. The Ejection Fraction is 60-65%. There is normal LV segmental wall m otion. The left ventricular diastolic function and filling is normal for age. RIGHT VENTRICLE The right ventricle is borderline dilated. There is normal right ventricular wall thickness. The righ t ventricular systolic function is normal. ATRIA The left atrium size is normal. The right atrium size is normal. The interatrial septum is intact wit h no evidence for an atrial septal defect or patent foramen ovale as noted on 2-D or Doppler imaging. AORTIC VALVE The aortic valve is normal in structure and function. Doppler and Color Flow revealed no significant aortic regurgitation. There is no significant aortic valvular stenosis. MITRAL VALVE The mitral valve is normal in structure and function. There is no evidence of mitral valve prolapse. There is no mitral valve stenosis. Doppler and Color-flow revealed trace mitral regurgitation. TRICUSPID VALVE The tricuspid valve is normal in structure and function. Doppler and Color Flow revealed no tricuspid valve regurgitation noted. There is no tricuspid valve stenosis. PULMONIC VALVE The pulmonic valve is not well visualized. Doppler and Color Flow revealed no pulmonic valvular regur gitation. GREAT VESSELS The aortic root is normal in size. The IVC is normal in size and collapses >50% with inspiration. PERICARDIAL EFFUSION There is no evidence of significant pericardial effusion. Critical Notification Critical Value: No <Conclusion> The left ventricular systolic function is normal. The Ejection Fraction is 60-65%. There is normal LV segmental wall motion. Doppler and Color-flow revealed trace mitral regurgitation. There is no evidence of significant pericardial effusion. Signed by : Macario Fitzgerald, Electronically Approved : 02/20/2019 12:45:59
--- NOTE | 2019-02-20 15:00 | RAD ---
MRI of the brain without contrast 02/20/2019 Clinical History: History of cardiac arrest. Myoclonus. Technique: Unenhanced T1-weighted sagittal and axial, T2-weighted axial and coronal and FLAIR, gradient echo and diffusion-weighted axial images of the brain were obtained. Findings: Comparison is made to patient's CT scan of the head dated 02/19/2019. The ventricles are within normal limits in size and configuration. Symmetric areas of of restricted diffusion are seen involving the cerebellum, medial aspect of both temporal lobes in the region of the hippocampi along with the cortex of the lateral temporal lobes, the lateral occipital lobes and the parietal and posterior frontal lobes. There is mild surrounding edema involving the medial temporal lobes without evidence of significant mass effect.. These findings are consistent with anoxic brain injury. No extra-axial fluid collection is noted. No area of parenchymal hemorrhage is seen. Mild mucosal thickening is seen involving the ethmoid air cells bilaterally. Normal flow voids are seen within the major vascular structures surrounding the brain parenchyma. IMPRESSION: Findings are seen consistent with anoxic brain injury as outlined above. The patient's nurse was notified of these findings. Electronically signed by: Raghavendra Nguyen MD (02/20/2019 2:57 PM) [id number]
--- NOTE | 2019-02-20 18:10 | PDOC ---
PROGRESS NOTES Assessment Assessment Anoxia/hypoxia encephalopathy. Hypoxic brain injury, especially the cortex. Metabolic encephalopathy. S/p cardiac arrest, PEA, down time estimated 20-30 minutes. Respiratory failure. Aspiration or pulmonary infiltrate. Hyperglycemia, glucose level 1510. Lactic acidosis. Leukocytosis. Myoclonus. Shock. Renal failure. Elevated hepatic enzymes. Hyponatremia, Na+ 124. Hyperkalemia, K+ 7.3. Hyper-phosphorus Hypocalcemia. DM, type 1. Poor prognosis. RECOMMENDATIONS/PLAN: Life support in ICU at the present time. Keppra 1000 mg IV q12h. Vimpat 100 mg IV q12h, increased to 200 mg IV q12h. Ativan 2 mg IV PRN q4h, for seizure control. Control hyperglycemia. Correct electrolytes imbalances. Rehydration. Treat medical diseases. Consulted Cardiology. Brain MRI on 02/20/19: In consistent with hypoxia brain injury. Refer to Radiology reports. EEG: Abnormal. PLEDs on near isoelectric background. History of Present Illness This is a 23-year-old male inmate with history of diabetes type 1 on insulin treatment. He was reportedly refused insulin in facility. He was found down by guards as pulseless. He received CPR with 2 injections of epi and the downtime was estimated 20-30 minutes. He was intubated outside of the hospital before arrival to the ER of [facility]. He remained unresponsive. Pupils are sluggish and dilated. His glucose was 1510. Neurology was requested for consultation for anoxic brain injury. Myoclonic movements significantly decreased on 02/20/19 after treatment. Past Medical History Endocrine: Diabetes Past Surgical History No pertinent history Family History Unknown Social History Smoke: Unknown. ALCOHOL: Unknown. Drugs: None ALLERGY: Unknown MEDICATIONS: Refer to [facility] REVIEW OF SYSTEMS: Constitutional: No malnutrition, weight loss, cachexia. Head: No traumatic brain or head injury. Skin: No edema, or rash. Ear: No infection. Eyes: No vision loss or color blindness. Nose: No bleeding or purulent discharges. Hearing: No hearing decrease. Neck: No injury. Cardiac: Cardiac arrest this time. Pulmonary: Respiratory failure this time. GI: No GI ulcer, GI bleeding. Urinary/genital: Unknown. Endocrinologic: Diabetes Mellitus. Skeletomuscular: No muscular atrophy. Neurological: see HP. Psychiatric: Denies drug use/abuse. Otherwise, not [id number] review of systems. PHYSICAL EXAMINATION: General appearance is in acute distress. HEENT: Normocephalic and nontraumatic. Eyes, nose, ears, and throat are unremarkable. Neck is supple. No lymphadenopathy. No crepitus. Cardiovascular: S1, S2, regular rate and rhythm. Pulmonary: On vent. Abdomen: Bowel sounds are positive. Extremities: No rash. NEUROLOGICAL EXAMINATION: On vent. In coma. No sedation. Not oriented to time, place and person. Pupils 1-2 mm, sluggish to light stimuli. EOMI not elicited. CN: no acute focal findings. Muscle tone: decreased. Muscle strength: Minimal movements noted in feet to pain stimuli. DTR: 0-1 Plantar reflex: No response bilaterally Gait: not able to walk in this mentation. Sensory exam: No response to pain stimuli except plantar exam. Not able to access cerebellar signs. F-T-N test not performed due to in coma. Myoclonic movements improved. Objective Objective Vital Signs Date Time Temp Pulse Resp B/P (MAP) Pulse Ox O2 Delivery O2 Flow Rate FiO2 02/20/19 16:55 100 Ventilator 02/20/19 16:25 100.0 104 89/53 (65) 100.0 02/20/19 10:00 18 Intake and Output 02/20/19 07:00 Intake Total 8914 ml Output Total 3645 ml Balance 5269 ml Intake Oral 0 ml IV Total 8914 ml Output Urine Total 3545 ml Gastric Drainage Total 100 ml # Voids 1 # Bowel Movements 3 Vitals Signs Vitals VS - Last 72 Hours, by Label Date Time Temp Pulse Resp B/P (MAP) Pulse Ox O2 Delivery O2 Flow Rate FiO2 02/20/19 16:55 100 Ventilator 02/20/19 16:25 100.0 104 89/53 (65) 98 Ventilator 100.0 02/20/19 16:00 Mechanical Ventilator 02/20/19 15:00 112 103/55 (71) 100 Ventilator 02/20/19 14:47 100 Ventilator 02/20/19 14:00 112 107/57 (74) 98 Ventilator 02/20/19 12:35 100 Ventilator 02/20/19 12:00 99.3 110 109/59 (76) 100 Ventilator 99.3 02/20/19 12:00 Mechanical Ventilator 02/20/19 11:00 110 107/64 (78) 100 Ventilator 02/20/19 10:00 112 18 116/59 (78) 100 Ventilator 02/20/19 09:00 112 22 96/58 (71) 99 Ventilator 02/20/19 08:00 Mechanical Ventilator 02/20/19 08:00 100.3 118 100/58 (72) 99 Ventilator 100.3 02/20/19 07:00 120 100 Ventilator 02/20/19 06:00 120 28 95/58 (70) 94 Ventilator 02/20/19 05:30 100 Ventilator 02/20/19 05:00 120 32 96/60 (72) 98 Ventilator 02/20/19 04:00 Mechanical Ventilator 02/20/19 04:00 99.6 119 22 82/64 (70) 97 Ventilator 99.6 02/20/19 03:50 100 Ventilator 02/20/19 03:00 117 26 95/61 (72) 99 Ventilator 02/20/19 02:00 118 30 104/61 (75) 97 Ventilator 02/20/19 01:05 98 Ventilator 02/20/19 01:00 113 28 100/63 (75) 94 Ventilator 02/20/19 00:00 98.6 117 30 108/63 (78) 95 Ventilator 98.6 02/19/19 23:59 Mechanical Ventilator 02/19/19 23:02 96 Ventilator 02/19/19 23:00 116 32 101/65 (77) 97 Ventilator 02/19/19 22:00 120 32 132/65 (87) 94 Ventilator 02/19/19 21:00 113 28 120/63 (82) 94 Ventilator 02/19/19 20:00 Mechanical Ventilator 02/19/19 20:00 113 27 108/58 (75) 96 Ventilator 02/19/19 19:50 92 Ventilator 02/19/19 19:00 96.9 101 24 97/50 (66) 93 Ventilator 96.9 02/19/19 18:13 93 Ventilator 02/19/19 18:02 91.9 93 22 93/44 (60) 94 Ventilator 91.9 02/19/19 17:15 Mechanical Ventilator 02/19/19 17:00 91.6 88 22 106/47 (66) 93 Ventilator 91.6 02/19/19 16:47 88 24 111/54 (73) 100 Ventilator 02/19/19 16:37 86 24 99/48 (65) 100 02/19/19 16:34 91.9 91.9 02/19/19 16:22 86 24 109/49 (69) 99 Ventilator 02/19/19 16:02 88 24 104/49 (67) 100 02/19/19 15:47 86 24 111/53 (72) 100 Ventilator 02/19/19 15:32 86 24 101/56 (71) 100 02/19/19 15:30 99 Ventilator 02/19/19 15:17 86 24 113/57 (75) 100 Ventilator 02/19/19 15:02 84 24 110/55 (73) 100 02/19/19 14:52 84 24 116/55 (75) 100 02/19/19 14:42 84 18 111/56 (74) 100 Ventilator 02/19/19 14:32 84 18 113/55 (74) 100 02/19/19 14:22 82 18 110/52 (71) 100 02/19/19 14:12 84 18 108/53 (71) 100 Ventilator 02/19/19 14:07 82 18 102/43 (62) 100 Ventilator 02/19/19 14:00 89 18 68/40 (49) 100 Ventilator 02/19/19 13:57 82 18 82/32 (49) 100 02/19/19 13:52 82 20 98/41 (60) 100 02/19/19 13:47 82 18 89/41 (57) 100 Ventilator 02/19/19 13:42 82 16 78/34 (49) 100 02/19/19 13:37 82 18 70/35 (47) 100 Ventilator 02/19/19 13:32 82 16 76/33 (47) 100 02/19/19 13:22 82 18 71/37 (48) 100 02/19/19 13:17 82 18 75/39 (51) 100 02/19/19 13:12 100 18 81/35 (50) 100 Ventilator 02/19/19 13:00 98.7 89 18 100 Ventilator 98.7 02/19/19 13:00 99 Ventilator Laboratory Laboratory Laboratory Tests Test 02/19/19 19:50 02/19/19 20:00 02/19/19 22:00 02/20/19 00:20 O2 Saturation 91 % (92-99) Arterial Blood pH 7.08 (7.35-7.45) Arterial Blood pCO2 at Patient Temp 29 mmHg (35-46) Arterial Blood pO2 at Patient Temp 65 mmHg (85-108) Arterial Blood HCO3 8 mmol/L (21-28) Arterial Blood Base Excess -20 mmol/L (-3-3) FiO2 50 Glucose Level 952 mg/dL (70-99) 848 mg/dL (70-99) 639 mg/dL (70-99) Sodium Level 137 mmol/L (136-145) 141 mmol/L (136-145) Potassium Level 4.1 mmol/L (3.5-5.1) 3.7 mmol/L (3.5-5.1) Chloride Level 97 mmol/L (98-107) 102 mmol/L (98-107) Carbon Dioxide Level 12 mmol/L (21-32) 17 mmol/L (21-32) Anion Gap 28 (6-14) 22 (6-14) Blood Urea Nitrogen 66 mg/dL (8-26) 63 mg/dL (8-26) Creatinine 3.8 mg/dL (0.7-1.3) 3.7 mg/dL (0.7-1.3) Estimated GFR (Cockcroft-Gault) 19.5 20.1 Calcium Level 7.0 mg/dL (8.5-10.1) 7.0 mg/dL (8.5-10.1) Phosphorus Level 4.7 mg/dL (2.6-4.7) 2.6 mg/dL (2.6-4.7) Magnesium Level 3.1 mg/dL (1.8-2.4) 2.9 mg/dL (1.8-2.4) Test 02/20/19 02:00 02/20/19 03:52 02/20/19 04:00 02/20/19 05:03 Glucose Level 500 mg/dL (70-99) 358 mg/dL (70-99) Glucose (Fingerstick) 358 mg/dL (70-99) 295 mg/dL (70-99) White Blood Count 12.7 x10^3/uL (4.0-11.0) Red Blood Count 3.74 x10^6/uL (4.30-5.70) Hemoglobin 11.3 g/dL (13.0-17.5) Hematocrit 32.2 % (39.0-53.0) Mean Corpuscular Volume 86 fL (79-100) Mean Corpuscular Hemoglobin 30 pg (25-35) Mean Corpuscular Hemoglobin Concent 35 g/dL (31-37) Red Cell Distribution Width 11.7 % (11.5-14.5) Platelet Count 197 x10^3/uL (140-400) Neutrophils (%) (Auto) 87 % (31-73) Lymphocytes (%) (Auto) 7 % (24-48) Monocytes (%) (Auto) 5 % (0-9) Eosinophils (%) (Auto) 1 % (0-3) Basophils (%) (Auto) 0 % (0-3) Neutrophils # (Auto) 11.1 x10^3uL (1.8-7.7) Lymphocytes # (Auto) 0.9 x10^3/uL (1.0-4.8) Monocytes # (Auto) 0.6 x10^3/uL (0.0-1.1) Eosinophils # (Auto) 0.1 x10^3/uL (0.0-0.7) Basophils # (Auto) 0.0 x10^3/uL (0.0-0.2) Sodium Level 145 mmol/L (136-145) Potassium Level 5.7 mmol/L (3.5-5.1) Chloride Level 109 mmol/L (98-107) Carbon Dioxide Level 24 mmol/L (21-32) Anion Gap 12 (6-14) Blood Urea Nitrogen 57 mg/dL (8-26) Creatinine 3.3 mg/dL (0.7-1.3) Estimated GFR (Cockcroft-Gault) 23.0 Calcium Level 7.1 mg/dL (8.5-10.1) Phosphorus Level 1.3 mg/dL (2.6-4.7) Magnesium Level 2.5 mg/dL (1.8-2.4) Total Bilirubin 0.4 mg/dL (0.2-1.0) Direct Bilirubin 0.2 mg/dL (0.0-0.2) Aspartate Amino Transf (AST/SGOT) 938 U/L (15-37) Alanine Aminotransferase (ALT/SGPT) 345 U/L (16-63) Alkaline Phosphatase 106 U/L (46-116) Total Protein 5.1 g/dL (6.4-8.2) Albumin 2.7 g/dL (3.4-5.0) Test 02/20/19 06:10 02/20/19 07:56 02/20/19 09:30 02/20/19 09:52 Glucose (Fingerstick) 265 mg/dL (70-99) 150 mg/dL (70-99) 170 mg/dL (70-99) O2 Saturation 99 % (92-99) Arterial Blood pH 7.54 (7.35-7.45) Arterial Blood pH (Temp corrected) 7.52 Arterial Blood pCO2 at Patient Temp 28 mmHg (35-46) Arterial Blood pCO2 (Temp correct) 29 mmHg Arterial Blood pO2 at Patient Temp 194 mmHg (85-108) Arterial Blood pO2 (Temp corrected) 199 mmHg Arterial Blood HCO3 23 mmol/L (21-28) Arterial Blood Base Excess 2 mmol/L (-3-3) FiO2 50 Test 02/20/19 11:12 02/20/19 12:03 02/20/19 13:26 02/20/19 15:13 Glucose (Fingerstick) 172 mg/dL (70-99) 199 mg/dL (70-99) 168 mg/dL (70-99) 156 mg/dL (70-99) Test 02/20/19 16:23 02/20/19 17:34 Glucose (Fingerstick) 173 mg/dL (70-99) 166 mg/dL (70-99) Microbiology 02/19/19 Blood Culture - Preliminary, Resulted NO GROWTH AFTER 1 DAY Medication Medications Current Medications Enoxaparin Sodium (Lovenox 40mg Syringe) 40 mg Q24H SQ ; Start 02/20/19 at 09:00 ; Stop 02/20/19 at 09:58; Status DC Lacosamide 100 mg/ Dextrose 60 ml @ 120 mls/hr BID IV Last administered on 08/31at 13:00; Start 02/20/19 at 12:00 Levetiracetam 1000 mg/Dextrose 110 ml @ 420 mls/hr Q12HR IV ; Start 02/20/19 at 21:00 Levetiracetam 750 mg/Dextrose 107.5 ml @ 420 mls/hr Q12HR IV Last administered on 02/20/19at 08:42; Start 02/19/19 at 22:00; Stop 02/20/19 at 11:07 ; Status DC Lorazepam (Ativan) 2 mg PRN Q4HRS PRN IV ANXIETY / AGITATION Last administered on 02/20/19at 13:39; Start 02/20/19 at 11:15 Norepinephrine Bitartrate 250 ml @ 1.875 mls/ hr CONT PRN IV SEE I/O RECORD; Start 02/19/19 at 21:15 Pantoprazole Sodium (PROTONIX VIAL for IV PUSH) 40 mg DAILYAC IVP Last administered on 02/20/19at 08:47; Start 02/20/19 at 07:30 Potassium Chloride/Water 50 ml @ 50 mls/hr Q1H IV Last administered on at 04:10; Start 02/20/19 at 02:30; Stop 02/20/19 at 04:30; Status DC Sodium Bicarbonate 150 meq/Sterile Water 1,150 ml @ 125 mls/hr Q9H12M IV Last administered on 02/20/19at 05:38; Start 02/19/19 at 20:00; Stop 02/20/19 at 09:58 ; Status DC Sodium Phosphate 20 mmol/Dextrose 256.6667 ml @ 64.167 m... 1X ONCE IV Last administered on 02/20/19at 08:45; Start 02/20/19 at 08:00; Stop 02/20/19 at 11:59 ; Status DC Vancomycin HCl 1 gm/Sodium Chloride 250 ml @ 250 mls/hr 1X ONCE IV Last administered on 02/19/19at 17:58; Start 02/19/19 at 18:30; Stop 02/19/19 at 19:29; Status DC Vecuronium [place] (Norcuron Bolus) 10 mg 1X ONCE IV ; Start 02/20/19 at 09:15 ; Stop 02/20/19 at 09:16; Status DC Vecuronium [place] (Norcuron Bolus) 10 mg 1X ONCE IV Last administered on 02/20at 13:48; Start 02/20/19 at 13:45; Stop 02/20/19 at 13:46; Status DC Comment Review of Relevant I have reviewed the following items bree (where applicable) has been applied. NARCISO KHAN MD Feb 20, 2019 18:10
--- NOTE | 2019-02-20 20:20 | EEG ---
DATE OF SERVICE: 02/20/2019 EEG NUMBER: [id number] OBJECTIVE: This is a 23-year-old male patient status post cardiopulmonary arrest after resuscitation. He had persistent myoclonic movements. EEG was requested to evaluate cerebral activity and seizure activity. METHODS: Twenty electrodes were applied according to the international 10-20 electrode placement system. EKG monitoring, hyperventilation, intermittent photic stimulation, monopolar, and bipolar montages are routinely utilized. The recording was obtained on a digital system with video monitoring. FINDINGS: 1. Background: The patient was recorded in the comatose state. No physiological awake, drowsy, and sleep states were recorded. The overall background amplitude is near isoelectric with periodical bursts of spike-and- wave contoured activities as PLEDs. No posterior-dominant rhythm is observed. 2. Abnormalities: PLEDs noted on the background of near isoelectric lasting for a few seconds each time. 3. Activation: Hyperventilation was not performed because the patient was in comatose state. Intermittent photic stimulation was performed without photic driving. IMPRESSION: This EEG is a remarkably abnormal study for the comatose state only. No physiological awake, drowsy, and sleep states were recorded. No posterior-dominant rhythm is observed. The overall rhythm is near isoelectric background with PLEDs like activities. This pattern of EEG is suggestive of severe cerebral dysfunction at increased risk of seizure. NARCISO KHAN MD DR: GEOVANY/pat JOB#: [id number] / [id number] AB
[2019-02-20] MEDS: LACOSAMIDE 200 MG in IV DEXTROSE 5% 50 ML IV SCH (20:55)
[2019-02-20] MEDS: levETIRAcetam 1,000 MG in IV DEXTROSE 5% 100ML 100 ML IV SCH (20:55)
[2019-02-21] VITALS (24 sets, daily range): BP systolic 86–122; BP diastolic 54–72
[2019-02-21] MEDS: IV DEXTROSE 5 %-0.45 % NACL 1,000 ML IV SCH ×2 (03:29→06:46)
[2019-02-21 05:26] LABS: BASO % 0 % (0-3); EOS % 0 % (0-3); HEMATOCRIT 28.7 % (39.0-53.0); HEMOGLOBIN 9.9 g/dL (13.0-17.5); LYMPH # 1.6 x10^3/uL (1.0-4.8); LYMPH % 14 % (24-48); MEAN CORPUSCULAR HEMOGLOBIN 30 pg (25-35); MEAN CORPUSCULAR HGB CONC 34 g/dL (31-37); MEAN CORPUSCULAR VOLUME 87 fL (79-100); MONO # 0.3 x10^3/uL (0.0-1.1); MONO % 3 % (0-9); NEUT # 9.4 x10^3uL (1.8-7.7); NEUT % 83 % (31-73); PLATELET COUNT 133 x10^3/uL (140-400); RED CELL DISTRIBUTION WIDTH 12.4 % (11.5-14.5); WHITE BLOOD COUNT 11.3 x10^3/uL (4.0-11.0)
[2019-02-21] MEDS: INSULIN LISPRO 300 UNITS/3 ML INSULN.PEN. SQ SCH ×4 (06:00→17:37)
[2019-02-21 06:09] LABS: CALCIUM 7.3 mg/dL (8.5-10.1); CREATININE 1.7 mg/dL (0.7-1.3); GFR 49.4
[2019-02-21 06:16] LABS: POTASSIUM 2.6 mmol/L (3.5-5.1)
[2019-02-21] MEDS: POTASSIUM CHL 20MEQ PREMIX 50 ML IV SCH ×4 (07:45→11:00)
[2019-02-21] MEDS ORDERED: POTASSIUM CHL 20MEQ PREMIX 50 ML IV SCH (08:00)
[2019-02-21 08:34] LABS: BASE EXCESS ABG 5 mmol/L (-3-3); HCO3 ABG 27 mmol/L (21-28); PCO2 ABG 34 mmHg (35-46); PO2 ABG 180 mmHg (85-108); SAT O2 ABG 99 % (92-99)
--- NOTE | 2019-02-21 08:39 | PDOC ---
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 will start lantus insulin for glycemia control discontinue iv fluids History of Present Illness History of Present Illness no purposeful movement, not responding to noxious stimuli, chain of events and labs reviewed. Will need to do apnea test, mri results and eeg results noted Vitals Vitals Vital Signs Date Time Temp Pulse Resp B/P (MAP) Pulse Ox O2 Delivery O2 Flow Rate FiO2 02/21/19 07:26 100 Ventilator 02/21/19 06:00 101 16 100/58 (72) 02/21/19 04:00 99.8 99.8 Physical Exam General: Other (intubated) Heart: Normal S1, Normal S2, Other (tachycardic) Lungs: Other (decrease bs) Abdomen: Normal bowel sounds, Soft, No tenderness, No hepatosplenomegaly, No masses Extremities: No edema, Normal pulses Skin: No significant lesion Labs LABS Laboratory Tests Test 02/20/19 09:30 02/20/19 09:52 02/20/19 11:12 02/20/19 12:03 O2 Saturation 99 % (92-99) Arterial Blood pH 7.54 (7.35-7.45) Arterial Blood pH (Temp corrected) 7.52 Arterial Blood pCO2 at Patient Temp 28 mmHg (35-46) Arterial Blood pCO2 (Temp correct) 29 mmHg Arterial Blood pO2 at Patient Temp 194 mmHg (85-108) Arterial Blood pO2 (Temp corrected) 199 mmHg Arterial Blood HCO3 23 mmol/L (21-28) Arterial Blood Base Excess 2 mmol/L (-3-3) FiO2 50 Glucose (Fingerstick) 170 mg/dL (70-99) 172 mg/dL (70-99) 199 mg/dL (70-99) Test 02/20/19 13:26 02/20/19 15:13 02/20/19 16:23 02/20/19 17:34 Glucose (Fingerstick) 168 mg/dL (70-99) 156 mg/dL (70-99) 173 mg/dL (70-99) 166 mg/dL (70-99) Test 02/20/19 18:22 02/20/19 20:02 02/20/19 21:46 02/20/19 22:51 Glucose (Fingerstick) 153 mg/dL (70-99) 124 mg/dL (70-99) 124 mg/dL (70-99) 129 mg/dL (70-99) Test 02/20/19 23:59 02/21/19 01:06 02/21/19 02:12 02/21/19 03:25 Glucose (Fingerstick) 139 mg/dL (70-99) 159 mg/dL (70-99) 159 mg/dL (70-99) 142 mg/dL (70-99) Test 02/21/19 04:40 02/21/19 06:43 White Blood Count 11.3 x10^3/uL (4.0-11.0) Red Blood Count 3.30 x10^6/uL (4.30-5.70) Hemoglobin 9.9 g/dL (13.0-17.5) Hematocrit 28.7 % (39.0-53.0) Mean Corpuscular Volume 87 fL (79-100) Mean Corpuscular Hemoglobin 30 pg (25-35) Mean Corpuscular Hemoglobin Concent 34 g/dL (31-37) Red Cell Distribution Width 12.4 % (11.5-14.5) Platelet Count 133 x10^3/uL (140-400) Neutrophils (%) (Auto) 83 % (31-73) Lymphocytes (%) (Auto) 14 % (24-48) Monocytes (%) (Auto) 3 % (0-9) Eosinophils (%) (Auto) 0 % (0-3) Basophils (%) (Auto) 0 % (0-3) Neutrophils # (Auto) 9.4 x10^3uL (1.8-7.7) Lymphocytes # (Auto) 1.6 x10^3/uL (1.0-4.8) Monocytes # (Auto) 0.3 x10^3/uL (0.0-1.1) Eosinophils # (Auto) 0.0 x10^3/uL (0.0-0.7) Basophils # (Auto) 0.0 x10^3/uL (0.0-0.2) Sodium Level 146 mmol/L (136-145) Potassium Level 2.6 mmol/L (3.5-5.1) Chloride Level 109 mmol/L (98-107) Carbon Dioxide Level 29 mmol/L (21-32) Anion Gap 8 (6-14) Blood Urea Nitrogen 24 mg/dL (8-26) Creatinine 1.7 mg/dL (0.7-1.3) Estimated GFR (Cockcroft-Gault) 49.4 Glucose Level 150 mg/dL (70-99) Glucose (Fingerstick) 134 mg/dL (70-99) 142 mg/dL (70-99) Calcium Level 7.3 mg/dL (8.5-10.1) Phosphorus Level 2.0 mg/dL (2.6-4.7) Magnesium Level 2.0 mg/dL (1.8-2.4) Assessment and Plan Assessmemt and Plan Problems Medical Problems: (1) Acute renal insufficiency Status: Acute (2) Cardiac arrest Status: Acute (3) Hepatic failure Status: Acute (4) History of sepsis Status: Acute (5) Hyperkalemia Status: Acute (6) Metabolic acidosis Status: Acute Comment Review of Relevant I have reviewed the following items bree (where applicable) has been applied. Labs Laboratory Tests Test 02/19/19 13:05 02/19/19 13:10 02/19/19 13:30 02/19/19 15:45 O2 Saturation 99 % (92-99) Arterial Blood pH 6.84 (7.35-7.45) Arterial Blood pCO2 at Patient Temp 29 mmHg (35-46) Arterial Blood pO2 at Patient Temp 309 mmHg (85-108) Arterial Blood HCO3 5 mmol/L (21-28) Arterial Blood Base Excess -29 mmol/L (-3-3) Oxyhemoglobin 98.0 % Methemoglobin 0.7 % (0.0-1.9) Carbon Monoxide, Quantitative 0.3 % (0.0-1.9) FiO2 60 White Blood Count 21.6 x10^3/uL (4.0-11.0) Red Blood Count 4.26 x10^6/uL (4.30-5.70) Hemoglobin 13.0 g/dL (13.0-17.5) Hematocrit 45.9 % (39.0-53.0) Mean Corpuscular Volume 108 fL (79-100) Mean Corpuscular Hemoglobin 31 pg (25-35) Mean Corpuscular Hemoglobin Concent 28 g/dL (31-37) Red Cell Distribution Width 13.6 % (11.5-14.5) Platelet Count 249 x10^3/uL (140-400) Neutrophils (%) (Auto) 77 % (31-73) Lymphocytes (%) (Auto) 19 % (24-48) Monocytes (%) (Auto) 4 % (0-9) Eosinophils (%) (Auto) 1 % (0-3) Basophils (%) (Auto) 0 % (0-3) Neutrophils # (Auto) 16.6 x10^3uL (1.8-7.7) Lymphocytes # (Auto) 4.0 x10^3/uL (1.0-4.8) Monocytes # (Auto) 0.9 x10^3/uL (0.0-1.1) Eosinophils # (Auto) 0.1 x10^3/uL (0.0-0.7) Basophils # (Auto) 0.1 x10^3/uL (0.0-0.2) Segmented Neutrophils % 66 % (35-66) Band Neutrophils % 14 % (0-9) Lymphocytes % 15 % (24-48) Monocytes % 4 % (0-10) Metamyelocytes % 1 % (0-0) Toxic Vacuolation Mod Platelet Estimate Adequate (ADEQUATE) Prothrombin Time 17.1 SEC (11.7-14.0) Prothromb Time International Ratio 1.4 (0.8-1.1) Sodium Level 124 mmol/L (136-145) Potassium Level 7.3 mmol/L (3.5-5.1) Chloride Level 81 mmol/L (98-107) Carbon Dioxide Level 8 mmol/L (21-32) Anion Gap 35 (6-14) Blood Urea Nitrogen 79 mg/dL (8-26) Creatinine 4.5 mg/dL (0.7-1.3) Estimated GFR (Cockcroft-Gault) 16.0 BUN/Creatinine Ratio 18 (6-20) Glucose Level 1510 mg/dL (70-99) 1153 mg/dL (70-99) Lactic Acid Level 9.0 mmol/L (0.4-2.0) Calcium Level 8.4 mg/dL (8.5-10.1) Phosphorus Level 17.5 mg/dL (2.6-4.7) Magnesium Level 5.0 mg/dL (1.8-2.4) Total Bilirubin 0.5 mg/dL (0.2-1.0) Aspartate Amino Transf (AST/SGOT) 902 U/L (15-37) Alanine Aminotransferase (ALT/SGPT) 464 U/L (16-63) Alkaline Phosphatase 159 U/L (46-116) Creatine Kinase 212 U/L (39-308) Troponin I Quantitative 0.041 ng/mL (0.000-0.055) VD-Coa-D-Type Natriuretic Peptide 1921 pg/mL (0-124) Total Protein 6.4 g/dL (6.4-8.2) Albumin 3.3 g/dL (3.4-5.0) Albumin/Globulin Ratio 1.1 (1.0-1.7) Lipase 139 U/L (73-393) Salicylates Level 4.9 mg/dL (2.8-20.0) Salicylate Last Dose Date Unk Salicylate Last Dose Time Unk Acetaminophen Level 2.69 mcg/ml (10-30) Acetaminophen Last Dose Date Unk Acetaminophen Last Dose Time Unk Acetone Level Mod pos (NEG) Urine Collection Type Unknown Urine Color Yellow Urine Clarity Clear Urine pH 5.0 Urine Specific [place] 1.025 Urine Protein Negative mg/dL (NEG-TRACE) Urine Glucose (UA) >=1000 mg/dL (NEG) Urine Ketones (Stick) >=80 mg/dL (NEG) Urine Blood Negative (NEG) Urine Nitrite Negative (NEG) Urine Bilirubin Negative (NEG) Urine Urobilinogen Dipstick 0.2 mg/dL (0.2 mg/dL) Urine Leukocyte Esterase Negative (NEG) Urine RBC 0 /HPF (0-2) Urine WBC 0 /HPF (0-4) Urine Squamous Epithelial Cells Few /LPF Urine Bacteria 0 /HPF (0-FEW) Urine Hyaline Casts Many /HPF Urine Mucus Slight /LPF Urine Opiates Screen Neg (NEG) Urine Methadone Screen Neg (NEG) Urine Barbiturates Neg (NEG) Urine Phencyclidine Screen Neg (NEG) Urine Amphetamine/Methamphetamine Neg (NEG) Urine Benzodiazepines Screen Neg (NEG) Urine Cocaine Screen Neg (NEG) Urine Cannabinoids Screen Neg (NEG) Urine Ethyl Alcohol Neg (NEG) Test 02/19/19 17:00 02/19/19 18:00 02/19/19 19:50 02/19/19 20:00 Nasal Screen MRSA (PCR) Negative (Negative) Sodium Level 136 mmol/L (136-145) Potassium Level 4.7 mmol/L (3.5-5.1) Chloride Level 96 mmol/L (98-107) Carbon Dioxide Level 8 mmol/L (21-32) Anion Gap 32 (6-14) Blood Urea Nitrogen 71 mg/dL (8-26) Creatinine 4.1 mg/dL (0.7-1.3) Estimated GFR (Cockcroft-Gault) 17.9 Glucose Level 1031 mg/dL (70-99) 952 mg/dL (70-99) Lactic Acid Level 3.1 mmol/L (0.4-2.0) Calcium Level 7.1 mg/dL (8.5-10.1) Phosphorus Level 9.2 mg/dL (2.6-4.7) Magnesium Level 3.5 mg/dL (1.8-2.4) Creatine Kinase 2316 U/L (39-308) Vitamin B12 Level 1787 pg/mL (247-911) Thyroid Stimulating Hormone (TSH) 4.191 uIU/mL (0.358-3.74) O2 Saturation 91 % (92-99) Arterial Blood pH 7.08 (7.35-7.45) Arterial Blood pCO2 at Patient Temp 29 mmHg (35-46) Arterial Blood pO2 at Patient Temp 65 mmHg (85-108) Arterial Blood HCO3 8 mmol/L (21-28) Arterial Blood Base Excess -20 mmol/L (-3-3) FiO2 50 Test 02/19/19 22:00 02/20/19 00:20 02/20/19 02:00 02/20/19 03:52 Sodium Level 137 mmol/L (136-145) 141 mmol/L (136-145) Potassium Level 4.1 mmol/L (3.5-5.1) 3.7 mmol/L (3.5-5.1) Chloride Level 97 mmol/L (98-107) 102 mmol/L (98-107) Carbon Dioxide Level 12 mmol/L (21-32) 17 mmol/L (21-32) Anion Gap 28 (6-14) 22 (6-14) Blood Urea Nitrogen 66 mg/dL (8-26) 63 mg/dL (8-26) Creatinine 3.8 mg/dL (0.7-1.3) 3.7 mg/dL (0.7-1.3) Estimated GFR (Cockcroft-Gault) 19.5 20.1 Glucose Level 848 mg/dL (70-99) 639 mg/dL (70-99) 500 mg/dL (70-99) Calcium Level 7.0 mg/dL (8.5-10.1) 7.0 mg/dL (8.5-10.1) Phosphorus Level 4.7 mg/dL (2.6-4.7) 2.6 mg/dL (2.6-4.7) Magnesium Level 3.1 mg/dL (1.8-2.4) 2.9 mg/dL (1.8-2.4) Glucose (Fingerstick) 358 mg/dL (70-99) Test 02/20/19 04:00 02/20/19 05:03 02/20/19 06:10 02/20/19 07:56 White Blood Count 12.7 x10^3/uL (4.0-11.0) Red Blood Count 3.74 x10^6/uL (4.30-5.70) Hemoglobin 11.3 g/dL (13.0-17.5) Hematocrit 32.2 % (39.0-53.0) Mean Corpuscular Volume 86 fL (79-100) Mean Corpuscular Hemoglobin 30 pg (25-35) Mean Corpuscular Hemoglobin Concent 35 g/dL (31-37) Red Cell Distribution Width 11.7 % (11.5-14.5) Platelet Count 197 x10^3/uL (140-400) Neutrophils (%) (Auto) 87 % (31-73) Lymphocytes (%) (Auto) 7 % (24-48) Monocytes (%) (Auto) 5 % (0-9) Eosinophils (%) (Auto) 1 % (0-3) Basophils (%) (Auto) 0 % (0-3) Neutrophils # (Auto) 11.1 x10^3uL (1.8-7.7) Lymphocytes # (Auto) 0.9 x10^3/uL (1.0-4.8) Monocytes # (Auto) 0.6 x10^3/uL (0.0-1.1) Eosinophils # (Auto) 0.1 x10^3/uL (0.0-0.7) Basophils # (Auto) 0.0 x10^3/uL (0.0-0.2) Sodium Level 145 mmol/L (136-145) Potassium Level 5.7 mmol/L (3.5-5.1) Chloride Level 109 mmol/L (98-107) Carbon Dioxide Level 24 mmol/L (21-32) Anion Gap 12 (6-14) Blood Urea Nitrogen 57 mg/dL (8-26) Creatinine 3.3 mg/dL (0.7-1.3) Estimated GFR (Cockcroft-Gault) 23.0 Glucose Level 358 mg/dL (70-99) Calcium Level 7.1 mg/dL (8.5-10.1) Phosphorus Level 1.3 mg/dL (2.6-4.7) Magnesium Level 2.5 mg/dL (1.8-2.4) Total Bilirubin 0.4 mg/dL (0.2-1.0) Direct Bilirubin 0.2 mg/dL (0.0-0.2) Aspartate Amino Transf (AST/SGOT) 938 U/L (15-37) Alanine Aminotransferase (ALT/SGPT) 345 U/L (16-63) Alkaline Phosphatase 106 U/L (46-116) Total Protein 5.1 g/dL (6.4-8.2) Albumin 2.7 g/dL (3.4-5.0) Glucose (Fingerstick) 295 mg/dL (70-99) 265 mg/dL (70-99) 150 mg/dL (70-99) Test 02/20/19 09:30 02/20/19 09:52 02/20/19 11:12 02/20/19 12:03 O2 Saturation 99 % (92-99) Arterial Blood pH 7.54 (7.35-7.45) Arterial Blood pH (Temp corrected) 7.52 Arterial Blood pCO2 at Patient Temp 28 mmHg (35-46) Arterial Blood pCO2 (Temp correct) 29 mmHg Arterial Blood pO2 at Patient Temp 194 mmHg (85-108) Arterial Blood pO2 (Temp corrected) 199 mmHg Arterial Blood HCO3 23 mmol/L (21-28) Arterial Blood Base Excess 2 mmol/L (-3-3) FiO2 50 Glucose (Fingerstick) 170 mg/dL (70-99) 172 mg/dL (70-99) 199 mg/dL (70-99) Test 02/20/19 13:26 02/20/19 15:13 02/20/19 16:23 02/20/19 17:34 Glucose (Fingerstick) 168 mg/dL (70-99) 156 mg/dL (70-99) 173 mg/dL (70-99) 166 mg/dL (70-99) Test 02/20/19 18:22 02/20/19 20:02 02/20/19 21:46 02/20/19 22:51 Glucose (Fingerstick) 153 mg/dL (70-99) 124 mg/dL (70-99) 124 mg/dL (70-99) 129 mg/dL (70-99) Test 02/20/19 23:59 02/21/19 01:06 02/21/19 02:12 02/21/19 03:25 Glucose (Fingerstick) 139 mg/dL (70-99) 159 mg/dL (70-99) 159 mg/dL (70-99) 142 mg/dL (70-99) Test 02/21/19 04:40 02/21/19 06:43 White Blood Count 11.3 x10^3/uL (4.0-11.0) Red Blood Count 3.30 x10^6/uL (4.30-5.70) Hemoglobin 9.9 g/dL (13.0-17.5) Hematocrit 28.7 % (39.0-53.0) Mean Corpuscular Volume 87 fL (79-100) Mean Corpuscular Hemoglobin 30 pg (25-35) Mean Corpuscular Hemoglobin Concent 34 g/dL (31-37) Red Cell Distribution Width 12.4 % (11.5-14.5) Platelet Count 133 x10^3/uL (140-400) Neutrophils (%) (Auto) 83 % (31-73) Lymphocytes (%) (Auto) 14 % (24-48) Monocytes (%) (Auto) 3 % (0-9) Eosinophils (%) (Auto) 0 % (0-3) Basophils (%) (Auto) 0 % (0-3) Neutrophils # (Auto) 9.4 x10^3uL (1.8-7.7) Lymphocytes # (Auto) 1.6 x10^3/uL (1.0-4.8) Monocytes # (Auto) 0.3 x10^3/uL (0.0-1.1) Eosinophils # (Auto) 0.0 x10^3/uL (0.0-0.7) Basophils # (Auto) 0.0 x10^3/uL (0.0-0.2) Sodium Level 146 mmol/L (136-145) Potassium Level 2.6 mmol/L (3.5-5.1) Chloride Level 109 mmol/L (98-107) Carbon Dioxide Level 29 mmol/L (21-32) Anion Gap 8 (6-14) Blood Urea Nitrogen 24 mg/dL (8-26) Creatinine 1.7 mg/dL (0.7-1.3) Estimated GFR (Cockcroft-Gault) 49.4 Glucose Level 150 mg/dL (70-99) Glucose (Fingerstick) 134 mg/dL (70-99) 142 mg/dL (70-99) Calcium Level 7.3 mg/dL (8.5-10.1) Phosphorus Level 2.0 mg/dL (2.6-4.7) Magnesium Level 2.0 mg/dL (1.8-2.4) Laboratory Tests Test 02/20/19 09:30 02/20/19 09:52 02/20/19 11:12 02/20/19 12:03 O2 Saturation 99 % (92-99) Arterial Blood pH 7.54 (7.35-7.45) Arterial Blood pH (Temp corrected) 7.52 Arterial Blood pCO2 at Patient Temp 28 mmHg (35-46) Arterial Blood pCO2 (Temp correct) 29 mmHg Arterial Blood pO2 at Patient Temp 194 mmHg (85-108) Arterial Blood pO2 (Temp corrected) 199 mmHg Arterial Blood HCO3 23 mmol/L (21-28) Arterial Blood Base Excess 2 mmol/L (-3-3) FiO2 50 Glucose (Fingerstick) 170 mg/dL (70-99) 172 mg/dL (70-99) 199 mg/dL (70-99) Test 02/20/19 13:26 02/20/19 15:13 02/20/19 16:23 02/20/19 17:34 Glucose (Fingerstick) 168 mg/dL (70-99) 156 mg/dL (70-99) 173 mg/dL (70-99) 166 mg/dL (70-99) Test 02/20/19 18:22 02/20/19 20:02 02/20/19 21:46 02/20/19 22:51 Glucose (Fingerstick) 153 mg/dL (70-99) 124 mg/dL (70-99) 124 mg/dL (70-99) 129 mg/dL (70-99) Test 02/20/19 23:59 02/21/19 01:06 02/21/19 02:12 02/21/19 03:25 Glucose (Fingerstick) 139 mg/dL (70-99) 159 mg/dL (70-99) 159 mg/dL (70-99) 142 mg/dL (70-99) Test 02/21/19 04:40 02/21/19 06:43 White Blood Count 11.3 x10^3/uL (4.0-11.0) Red Blood Count 3.30 x10^6/uL (4.30-5.70) Hemoglobin 9.9 g/dL (13.0-17.5) Hematocrit 28.7 % (39.0-53.0) Mean Corpuscular Volume 87 fL (79-100) Mean Corpuscular Hemoglobin 30 pg (25-35) Mean Corpuscular Hemoglobin Concent 34 g/dL (31-37) Red Cell Distribution Width 12.4 % (11.5-14.5) Platelet Count 133 x10^3/uL (140-400) Neutrophils (%) (Auto) 83 % (31-73) Lymphocytes (%) (Auto) 14 % (24-48) Monocytes (%) (Auto) 3 % (0-9) Eosinophils (%) (Auto) 0 % (0-3) Basophils (%) (Auto) 0 % (0-3) Neutrophils # (Auto) 9.4 x10^3uL (1.8-7.7) Lymphocytes # (Auto) 1.6 x10^3/uL (1.0-4.8) Monocytes # (Auto) 0.3 x10^3/uL (0.0-1.1) Eosinophils # (Auto) 0.0 x10^3/uL (0.0-0.7) Basophils # (Auto) 0.0 x10^3/uL (0.0-0.2) Sodium Level 146 mmol/L (136-145) Potassium Level 2.6 mmol/L (3.5-5.1) Chloride Level 109 mmol/L (98-107) Carbon Dioxide Level 29 mmol/L (21-32) Anion Gap 8 (6-14) Blood Urea Nitrogen 24 mg/dL (8-26) Creatinine 1.7 mg/dL (0.7-1.3) Estimated GFR (Cockcroft-Gault) 49.4 Glucose Level 150 mg/dL (70-99) Glucose (Fingerstick) 134 mg/dL (70-99) 142 mg/dL (70-99) Calcium Level 7.3 mg/dL (8.5-10.1) Phosphorus Level 2.0 mg/dL (2.6-4.7) Magnesium Level 2.0 mg/dL (1.8-2.4) Microbiology 02/19/19 Blood Culture - Preliminary, Resulted NO GROWTH AFTER 1 DAY Medications Current Medications Sodium Chloride 1,000 ml @ 1,000 mls/hr Q1H IV Last administered on 02/19/19at 13:00; Start 02/19/19 at 13:30; Stop 02/19/19 at 14:29; Status DC Sodium Chloride 1,000 ml @ 1,000 mls/hr 1X ONCE IV Last administered on at 13:00; Start 02/19/19 at 13:15; Stop 02/19/19 at 14:14; Status DC Insulin Human Regular (HumuLIN R VIAL) 10 unit 1X ONCE IV Last administered on 02/19/19at 13:34; Start 02/19/19 at 13:15; Stop 02/19/19 at 13:23; Status DC Insulin Human Regular 150 ml @ 7 mls/hr 1X ONCE IV Last administered on at 13:42; Start 02/19/19 at 13:15; Stop 02/20/19 at 10:40; Status DC Iohexol (Omnipaque 300 Mg/ml) 75 ml 1X ONCE IV ; Start 02/19/19 at 13:30; Stop 02/19/19 at 13:31; Status DC Sodium Chloride 1,000 ml @ 1,000 mls/hr 1X ONCE IV Last administered on at 13:30; Start 02/19/19 at 13:30; Stop 02/19/19 at 14:29; Status DC Info (CONTRAST GIVEN -- Rx MONITORING) 1 each PRN DAILY PRN MC SEE COMMENTS; Start 02/19/19 at 13:30; Stop 02/21/19 at 13:29 Insulin Human Regular 150 ml @ As Directed STK-MED ONCE IV ; Start 02/19/19 at 13:23; Stop 02/19/19 at 13:24; Status DC Norepinephrine Bitartrate 250 ml @ 0 mls/hr 1X ONCE IV Last administered on 02/19/19at 13:37; Start 02/19/19 at 13:30; Stop 02/19/19 at 13:31; Status DC Pantoprazole Sodium (PROTONIX VIAL for IV PUSH) 40 mg DAILYAC IVP Last administered on 02/20/19at 08:47; Start 02/20/19 at 07:30 Pantoprazole Sodium (PROTONIX VIAL for IV PUSH) 40 mg 1X ONCE IVP Last administered on 02/19/19at 16:26; Start 02/19/19 at 14:00; Stop 02/19/19 at 14:01; Status DC Ondansetron HCl (Zofran) 4 mg PRN Q6HRS PRN IV NAUSEA/VOMITING; Start 02/19/19 at 14:00 Morphine Sulfate (Morphine Sulfate) 2 mg PRN Q2HR PRN IV PAIN; Start 02/19/19 at 14:00 Enoxaparin Sodium (Lovenox 40mg Syringe) 40 mg Q24H SQ ; Start 02/20/19 at 09:00 ; Stop 02/20/19 at 09:58; Status DC Enoxaparin Sodium (Lovenox 40mg Syringe) 40 mg 1X ONCE SQ Last administered on 02/19/19at 16:27; Start 02/19/19 at 14:00; Stop 02/20/19 at 09:58; Status DC Insulin Human Lispro (HumaLOG) 0-9 UNITS TIDWMEALS SQ ; Start 02/19/19 at 17:00; Stop 02/19/19 at 17:00; Status DC Dextrose (Dextrose 50%-Water Syringe) 12.5 gm PRN Q15MIN PRN IV SEE COMMENTS; Start 02/19/19 at 14:00; Stop 02/19/19 at 14:38; Status DC Sodium Chloride 1,000 ml @ 125 mls/hr Q8H IV ; Start 02/19/19 at 14:00; Status UNV Sodium Bicarbonate 150 meq/Dextrose 1,150 ml @ 125 mls/hr Q9H12M IV ; Start 02/19/19 at 14:15; Stop 02/19/19 at 14:15; Status DC Sodium Bicarbonate 150 meq/Sterile Water 1,150 ml @ 125 mls/hr 1X ONCE IV Last administered on 02/19/19at 15:52; Start 02/19/19 at 14:15; Stop 02/19/19 at 23: 26; Status DC Insulin Human Lispro (HumaLOG) 0-9 UNITS Q6HRS SQ ; Start 02/19/19 at 18:00 Insulin Human Regular 150 unit/ Sodium Chloride 151.5 ml @ 0 mls/hr CONT PRN IV SEE I/O RECORD Last administered on 02/20/19at 17:51; Start 02/19/19 at 14:30 Dextrose (Dextrose 50%-Water Syringe) 12.5 gm PRN Q15MIN PRN IV LOW BLOOD SUGAR ; Start 02/19/19 at 14:30 Sodium Chloride 1,000 ml @ 250 mls/hr Q4H IV Last administered on 02/20/19at 06 :38; Start 02/19/19 at 14:28; Stop 02/20/19 at 09:58; Status DC Dextrose/Sodium Chloride 1,000 ml @ 250 mls/hr Q4H IV Last administered on 10/01at 06:46; Start 02/19/19 at 14:28 Insulin Human Regular 150 unit/ Sodium Chloride 151.5 ml @ 0 mls/hr CONT PRN PRN IV PER PROTOCOL; Start 02/19/19 at 14:30; Status UNV Calcium Gluconate (Calcium Gluconate) 1,000 mg 1X ONCE IVP Last administered on 02/19/19at 16:01; Start 02/19/19 at 14:30; Stop 02/19/19 at 14:39; Status DC Sodium Polystyrene Sulfonate (Kayexalate) 15 gm 1X ONCE PO Last administered on 02/19/19at 16:30; Start 02/19/19 at 14:30; Stop 02/19/19 at 14:39; Status DC Insulin Human Regular (HumuLIN R VIAL) 10 unit 1X ONCE IV ; Start 02/19/19 at 14 :30; Stop 02/19/19 at 14:39; Status DC Piperacillin Sod/ Tazobactam Sod 3.375 gm/Sodium Chloride 50 ml @ 100 mls/hr 1X ONCE IV Last administered on 02/19/19at 15:15; Start 02/19/19 at 15:15; Stop 02/19/19 at 15:44; Status DC Vancomycin HCl 250 ml @ 250 mls/hr 1X STAT IV ; Start 02/19/19 at 15:04; Stop 02/19/19 at 16:03; Status DC Sodium Chloride 1,000 ml @ 1,000 mls/hr 1X ONCE IV Last administered on at 16:09; Start 02/19/19 at 15:15; Stop 02/19/19 at 16:14; Status DC Vancomycin HCl 1 gm/Sodium Chloride 250 ml @ 250 mls/hr 1X ONCE IV Last administered on 02/19/19at 17:58; Start 02/19/19 at 18:30; Stop 02/19/19 at 19:29; Status DC Sodium Bicarbonate 150 meq/Sterile Water 1,150 ml @ 125 mls/hr Q9H12M IV Last administered on 02/20/19at 05:38; Start 02/19/19 at 20:00; Stop 02/20/19 at 09:58 ; Status DC Norepinephrine Bitartrate 250 ml @ 1.875 mls/ hr CONT PRN IV SEE I/O RECORD; Start 02/19/19 at 21:15 Levetiracetam 750 mg/Dextrose 107.5 ml @ 420 mls/hr Q12HR IV Last administered on 02/20/19at 08:42; Start 02/19/19 at 22:00; Stop 02/20/19 at 11:07 ; Status DC Potassium Chloride/Water 50 ml @ 50 mls/hr Q1H IV Last administered on at 04:10; Start 02/20/19 at 02:30; Stop 02/20/19 at 04:30; Status DC Sodium Phosphate 20 mmol/Dextrose 256.6667 ml @ 64.167 m... 1X ONCE IV Last administered on 02/20/19at 08:45; Start 02/20/19 at 08:00; Stop 02/20/19 at 11:59 ; Status DC Vecuronium [place] (Norcuron Bolus) 10 mg 1X ONCE IV ; Start 02/20/19 at 09:15 ; Stop 02/20/19 at 09:16; Status DC Levetiracetam 1000 mg/Dextrose 110 ml @ 420 mls/hr Q12HR IV Last administered on 02/20/19at 20:55; Start 02/20/19 at 21:00 Lorazepam (Ativan) 2 mg PRN Q4HRS PRN IV ANXIETY / AGITATION Last administered on 02/20/19at 23:29; Start 02/20/19 at 11:15 Lacosamide 100 mg/ Dextrose 60 ml @ 120 mls/hr BID IV Last administered on 08/31at 13:00; Start 02/20/19 at 12:00; Stop 02/20/19 at 18:11; Status DC Vecuronium [place] (Norcuron Bolus) 10 mg 1X ONCE IV Last administered on 02/20at 13:48; Start 02/20/19 at 13:45; Stop 02/20/19 at 13:46; Status DC Lacosamide 200 mg/ Dextrose 70 ml @ 120 mls/hr BID IV Last administered on 08/31at 20:55; Start 02/20/19 at 21:00 Potassium Chloride/Water 50 ml @ 50 mls/hr Q1H IV Last administered on at 07:45; Start 02/21/19 at 08:00; Stop 02/21/19 at 11:59 Potassium Chloride/Water 50 ml @ 50 mls/hr Q1HR IV ; Start 02/21/19 at 08:00; Stop 02/21/19 at 13:59; Status UNV Active Scripts Active Reported Tums Ultra (Calcium Carbonate) 400 Mg Tab.chew 400 Mg PO BID Promethazine Hcl 25 Mg Tablet 1 Tab PO BID Hydroxyzine Hcl 25 Mg Tablet 25 Mg PO HS Humulin N (Nph, Human Insulin Isophane) 100 Unit/1 Ml Vial 24 Unit SQ [id number] Humulin N (Nph, Human Insulin Isophane) 100 Unit/1 Ml Vial 17 Unit SQ HS Fluoxetine Hcl 20 Mg Capsule 1 Cap PO DAILY Famotidine 20 Mg Tablet 20 Mg PO BID Excedrin Migraine Caplet (Aspirin/Acetaminophen/Caffeine) 1 Each Tablet 2 Each PO PRN BID PRN Acetaminophen 500 Mg Tablet 2 Tab PO BID Vitals/I & O Vital Sign - Last 24 Hours 02/20/19 02/20/19 02/20/19 02/20/19 09:00 10:00 11:00 12:00 Pulse 112 112 110 Resp 22 18 B/P (MAP) 96/58 (71) 116/59 (78) 107/64 (78) Pulse Ox 99 100 100 O2 Delivery Ventilator Ventilator Ventilator Mechanical Ventilator 02/20/19 02/20/19 02/20/19 02/20/19 12:00 12:35 14:00 14:47 Temp 99.3 99.3 Pulse 110 112 B/P (MAP) 109/59 (76) 107/57 (74) Pulse Ox 100 100 98 100 O2 Delivery Ventilator Ventilator Ventilator Ventilator 02/20/19 02/20/19 02/20/19 02/20/19 15:00 16:00 16:25 16:55 Temp 100.0 100.0 Pulse 112 104 B/P (MAP) 103/55 (71) 89/53 (65) Pulse Ox 100 98 100 O2 Delivery Ventilator Mechanical Ventilator Ventilator Ventilator 02/20/19 02/20/19 02/20/19 02/20/19 17:00 18:00 19:00 20:00 Pulse 102 102 102 Resp 16 18 18 B/P (MAP) 91/46 (61) 95/65 (75) Pulse Ox 99 100 99 O2 Delivery Ventilator Ventilator Ventilator Mechanical Ventilator 02/20/19 02/20/19 02/20/19 02/20/19 20:00 20:08 21:00 22:00 Temp 99.8 99.8 Pulse 102 103 104 Resp 18 16 16 B/P (MAP) 93/46 (62) 107/78 (88) 100/54 (69) Pulse Ox 99 99 99 100 O2 Delivery Ventilator Ventilator Ventilator Ventilator 402/20/19 02/20/19 02/21/19 23:00 23:53 23:59 00:00 Temp 99.9 99.9 Pulse 96 98 Resp 17 14 B/P (MAP) 95/54 (68) 86/55 (65) Pulse Ox 100 99 100 O2 Delivery Ventilator Ventilator Mechanical Ventilator Ventilator 02/21/19 02/21/19 02/21/19 02/21/19 01:00 02:00 03:00 03:55 Pulse 98 98 96 Resp 14 14 15 B/P (MAP) 90/56 (67) 103/58 (73) 95/62 (73) Pulse Ox 100 100 100 100 O2 Delivery Ventilator Ventilator Ventilator Ventilator 02/21/19 02/21/19 02/21/19 02/21/19 04:00 04:00 05:00 06:00 Temp 99.8 99.8 Pulse 94 99 101 Resp 13 14 16 B/P (MAP) 97/60 (72) 103/60 (74) 100/58 (72) Pulse Ox 100 100 100 O2 Delivery Mechanical Ventilator Ventilator Ventilator Ventilator 02/21/19 07:26 Pulse Ox 100 O2 Delivery Ventilator Intake and Output 02/20/19 02/20/19 02/21/19 15:00 23:00 07:00 Intake Total 882 ml 0 ml 3760 ml Output Total 950 ml 985 ml 750 ml Balance -68 ml -985 ml 3010 ml RODO DYE MD Feb 21, 2019 08:39
[2019-02-21] MEDS ORDERED: DEXTROSE 50% 25 GM / 50ML DISP.SYRIN. IV PRN (08:45)
[2019-02-21] MEDS: levETIRAcetam 1,000 MG in IV DEXTROSE 5% 100ML 100 ML IV SCH ×2 (09:00→21:04)
--- NOTE | 2019-02-21 09:22 | PDOC ---
PULMONARY PROGRESS NOTES Subjective on vent, no response, small ett secretion Vitals Vital Signs Date Time Temp Pulse Resp B/P (MAP) Pulse Ox O2 Delivery O2 Flow Rate FiO2 02/21/19 07:26 100 Ventilator 02/21/19 06:00 101 16 100/58 (72) 02/21/19 04:00 99.8 99.8 Comments ros as mentioned as above discussed w rn, rt, other sys otherwise neg on vent no response HEENT: Other (nc at perrl nose clear, orally intubated neck no lad no thyromegaly) Lungs: Other (decrease bs) Cardiovascular: S1, S2 Abdomen: Soft, Non-tender, Other (no mass) Extremities: No Edema Skin: Warm Labs Laboratory Tests Test 02/19/19 13:05 02/19/19 13:10 02/19/19 13:30 02/19/19 15:45 O2 Saturation 99 % (92-99) Arterial Blood pH 6.84 (7.35-7.45) Arterial Blood pCO2 at Patient Temp 29 mmHg (35-46) Arterial Blood pO2 at Patient Temp 309 mmHg (85-108) Arterial Blood HCO3 5 mmol/L (21-28) Arterial Blood Base Excess -29 mmol/L (-3-3) Oxyhemoglobin 98.0 % Methemoglobin 0.7 % (0.0-1.9) Carbon Monoxide, Quantitative 0.3 % (0.0-1.9) FiO2 60 White Blood Count 21.6 x10^3/uL (4.0-11.0) Red Blood Count 4.26 x10^6/uL (4.30-5.70) Hemoglobin 13.0 g/dL (13.0-17.5) Hematocrit 45.9 % (39.0-53.0) Mean Corpuscular Volume 108 fL (79-100) Mean Corpuscular Hemoglobin 31 pg (25-35) Mean Corpuscular Hemoglobin Concent 28 g/dL (31-37) Red Cell Distribution Width 13.6 % (11.5-14.5) Platelet Count 249 x10^3/uL (140-400) Neutrophils (%) (Auto) 77 % (31-73) Lymphocytes (%) (Auto) 19 % (24-48) Monocytes (%) (Auto) 4 % (0-9) Eosinophils (%) (Auto) 1 % (0-3) Basophils (%) (Auto) 0 % (0-3) Neutrophils # (Auto) 16.6 x10^3uL (1.8-7.7) Lymphocytes # (Auto) 4.0 x10^3/uL (1.0-4.8) Monocytes # (Auto) 0.9 x10^3/uL (0.0-1.1) Eosinophils # (Auto) 0.1 x10^3/uL (0.0-0.7) Basophils # (Auto) 0.1 x10^3/uL (0.0-0.2) Segmented Neutrophils % 66 % (35-66) Band Neutrophils % 14 % (0-9) Lymphocytes % 15 % (24-48) Monocytes % 4 % (0-10) Metamyelocytes % 1 % (0-0) Toxic Vacuolation Mod Platelet Estimate Adequate (ADEQUATE) Prothrombin Time 17.1 SEC (11.7-14.0) Prothromb Time International Ratio 1.4 (0.8-1.1) Sodium Level 124 mmol/L (136-145) Potassium Level 7.3 mmol/L (3.5-5.1) Chloride Level 81 mmol/L (98-107) Carbon Dioxide Level 8 mmol/L (21-32) Anion Gap 35 (6-14) Blood Urea Nitrogen 79 mg/dL (8-26) Creatinine 4.5 mg/dL (0.7-1.3) Estimated GFR (Cockcroft-Gault) 16.0 BUN/Creatinine Ratio 18 (6-20) Glucose Level 1510 mg/dL (70-99) 1153 mg/dL (70-99) Lactic Acid Level 9.0 mmol/L (0.4-2.0) Calcium Level 8.4 mg/dL (8.5-10.1) Phosphorus Level 17.5 mg/dL (2.6-4.7) Magnesium Level 5.0 mg/dL (1.8-2.4) Total Bilirubin 0.5 mg/dL (0.2-1.0) Aspartate Amino Transf (AST/SGOT) 902 U/L (15-37) Alanine Aminotransferase (ALT/SGPT) 464 U/L (16-63) Alkaline Phosphatase 159 U/L (46-116) Creatine Kinase 212 U/L (39-308) Troponin I Quantitative 0.041 ng/mL (0.000-0.055) [id number]-Type Natriuretic Peptide 1921 pg/mL (0-124) Total Protein 6.4 g/dL (6.4-8.2) Albumin 3.3 g/dL (3.4-5.0) Albumin/Globulin Ratio 1.1 (1.0-1.7) Lipase 139 U/L (73-393) Salicylates Level 4.9 mg/dL (2.8-20.0) Salicylate Last Dose Date Unk Salicylate Last Dose Time Unk Acetaminophen Level 2.69 mcg/ml (10-30) Acetaminophen Last Dose Date Unk Acetaminophen Last Dose Time Unk Acetone Level Mod pos (NEG) Urine Collection Type Unknown Urine Color Yellow Urine Clarity Clear Urine pH 5.0 Urine Specific Leslie 1.025 Urine Protein Negative mg/dL (NEG-TRACE) Urine Glucose (UA) >=1000 mg/dL (NEG) Urine Ketones (Stick) >=80 mg/dL (NEG) Urine Blood Negative (NEG) Urine Nitrite Negative (NEG) Urine Bilirubin Negative (NEG) Urine Urobilinogen Dipstick 0.2 mg/dL (0.2 mg/dL) Urine Leukocyte Esterase Negative (NEG) Urine RBC 0 /HPF (0-2) Urine WBC 0 /HPF (0-4) Urine Squamous Epithelial Cells Few /LPF Urine Bacteria 0 /HPF (0-FEW) Urine Hyaline Casts Many /HPF Urine Mucus Slight /LPF Urine Opiates Screen Neg (NEG) Urine Methadone Screen Neg (NEG) Urine Barbiturates Neg (NEG) Urine Phencyclidine Screen Neg (NEG) Urine Amphetamine/Methamphetamine Neg (NEG) Urine Benzodiazepines Screen Neg (NEG) Urine Cocaine Screen Neg (NEG) Urine Cannabinoids Screen Neg (NEG) Urine Ethyl Alcohol Neg (NEG) Test 02/19/19 17:00 02/19/19 18:00 02/19/19 19:50 02/19/19 20:00 Nasal Screen MRSA (PCR) Negative (Negative) Sodium Level 136 mmol/L (136-145) Potassium Level 4.7 mmol/L (3.5-5.1) Chloride Level 96 mmol/L (98-107) Carbon Dioxide Level 8 mmol/L (21-32) Anion Gap 32 (6-14) Blood Urea Nitrogen 71 mg/dL (8-26) Creatinine 4.1 mg/dL (0.7-1.3) Estimated GFR (Cockcroft-Gault) 17.9 Glucose Level 1031 mg/dL (70-99) 952 mg/dL (70-99) Lactic Acid Level 3.1 mmol/L (0.4-2.0) Calcium Level 7.1 mg/dL (8.5-10.1) Phosphorus Level 9.2 mg/dL (2.6-4.7) Magnesium Level 3.5 mg/dL (1.8-2.4) Creatine Kinase 2316 U/L (39-308) Vitamin B12 Level 1787 pg/mL (247-911) Thyroid Stimulating Hormone (TSH) 4.191 uIU/mL (0.358-3.74) O2 Saturation 91 % (92-99) Arterial Blood pH 7.08 (7.35-7.45) Arterial Blood pCO2 at Patient Temp 29 mmHg (35-46) Arterial Blood pO2 at Patient Temp 65 mmHg (85-108) Arterial Blood HCO3 8 mmol/L (21-28) Arterial Blood Base Excess -20 mmol/L (-3-3) FiO2 50 Test 02/19/19 22:00 02/20/19 00:20 02/20/19 02:00 02/20/19 03:52 Sodium Level 137 mmol/L (136-145) 141 mmol/L (136-145) Potassium Level 4.1 mmol/L (3.5-5.1) 3.7 mmol/L (3.5-5.1) Chloride Level 97 mmol/L (98-107) 102 mmol/L (98-107) Carbon Dioxide Level 12 mmol/L (21-32) 17 mmol/L (21-32) Anion Gap 28 (6-14) 22 (6-14) Blood Urea Nitrogen 66 mg/dL (8-26) 63 mg/dL (8-26) Creatinine 3.8 mg/dL (0.7-1.3) 3.7 mg/dL (0.7-1.3) Estimated GFR (Cockcroft-Gault) 19.5 20.1 Glucose Level 848 mg/dL (70-99) 639 mg/dL (70-99) 500 mg/dL (70-99) Calcium Level 7.0 mg/dL (8.5-10.1) 7.0 mg/dL (8.5-10.1) Phosphorus Level 4.7 mg/dL (2.6-4.7) 2.6 mg/dL (2.6-4.7) Magnesium Level 3.1 mg/dL (1.8-2.4) 2.9 mg/dL (1.8-2.4) Glucose (Fingerstick) 358 mg/dL (70-99) Test 02/20/19 04:00 02/20/19 05:03 02/20/19 06:10 02/20/19 07:56 White Blood Count 12.7 x10^3/uL (4.0-11.0) Red Blood Count 3.74 x10^6/uL (4.30-5.70) Hemoglobin 11.3 g/dL (13.0-17.5) Hematocrit 32.2 % (39.0-53.0) Mean Corpuscular Volume 86 fL (79-100) Mean Corpuscular Hemoglobin 30 pg (25-35) Mean Corpuscular Hemoglobin Concent 35 g/dL (31-37) Red Cell Distribution Width 11.7 % (11.5-14.5) Platelet Count 197 x10^3/uL (140-400) Neutrophils (%) (Auto) 87 % (31-73) Lymphocytes (%) (Auto) 7 % (24-48) Monocytes (%) (Auto) 5 % (0-9) Eosinophils (%) (Auto) 1 % (0-3) Basophils (%) (Auto) 0 % (0-3) Neutrophils # (Auto) 11.1 x10^3uL (1.8-7.7) Lymphocytes # (Auto) 0.9 x10^3/uL (1.0-4.8) Monocytes # (Auto) 0.6 x10^3/uL (0.0-1.1) Eosinophils # (Auto) 0.1 x10^3/uL (0.0-0.7) Basophils # (Auto) 0.0 x10^3/uL (0.0-0.2) Sodium Level 145 mmol/L (136-145) Potassium Level 5.7 mmol/L (3.5-5.1) Chloride Level 109 mmol/L (98-107) Carbon Dioxide Level 24 mmol/L (21-32) Anion Gap 12 (6-14) Blood Urea Nitrogen 57 mg/dL (8-26) Creatinine 3.3 mg/dL (0.7-1.3) Estimated GFR (Cockcroft-Gault) 23.0 Glucose Level 358 mg/dL (70-99) Calcium Level 7.1 mg/dL (8.5-10.1) Phosphorus Level 1.3 mg/dL (2.6-4.7) Magnesium Level 2.5 mg/dL (1.8-2.4) Total Bilirubin 0.4 mg/dL (0.2-1.0) Direct Bilirubin 0.2 mg/dL (0.0-0.2) Aspartate Amino Transf (AST/SGOT) 938 U/L (15-37) Alanine Aminotransferase (ALT/SGPT) 345 U/L (16-63) Alkaline Phosphatase 106 U/L (46-116) Total Protein 5.1 g/dL (6.4-8.2) Albumin 2.7 g/dL (3.4-5.0) Glucose (Fingerstick) 295 mg/dL (70-99) 265 mg/dL (70-99) 150 mg/dL (70-99) Test 02/20/19 09:30 02/20/19 09:52 02/20/19 11:12 02/20/19 12:03 O2 Saturation 99 % (92-99) Arterial Blood pH 7.54 (7.35-7.45) Arterial Blood pH (Temp corrected) 7.52 Arterial Blood pCO2 at Patient Temp 28 mmHg (35-46) Arterial Blood pCO2 (Temp correct) 29 mmHg Arterial Blood pO2 at Patient Temp 194 mmHg (85-108) Arterial Blood pO2 (Temp corrected) 199 mmHg Arterial Blood HCO3 23 mmol/L (21-28) Arterial Blood Base Excess 2 mmol/L (-3-3) FiO2 50 Glucose (Fingerstick) 170 mg/dL (70-99) 172 mg/dL (70-99) 199 mg/dL (70-99) Test 02/20/19 13:26 02/20/19 15:13 02/20/19 16:23 02/20/19 17:34 Glucose (Fingerstick) 168 mg/dL (70-99) 156 mg/dL (70-99) 173 mg/dL (70-99) 166 mg/dL (70-99) Test 02/20/19 18:22 02/20/19 20:02 02/20/19 21:46 02/20/19 22:51 Glucose (Fingerstick) 153 mg/dL (70-99) 124 mg/dL (70-99) 124 mg/dL (70-99) 129 mg/dL (70-99) Test 02/20/19 23:59 02/21/19 01:06 02/21/19 02:12 02/21/19 03:25 Glucose (Fingerstick) 139 mg/dL (70-99) 159 mg/dL (70-99) 159 mg/dL (70-99) 142 mg/dL (70-99) Test 02/21/19 04:40 02/21/19 06:43 White Blood Count 11.3 x10^3/uL (4.0-11.0) Red Blood Count 3.30 x10^6/uL (4.30-5.70) Hemoglobin 9.9 g/dL (13.0-17.5) Hematocrit 28.7 % (39.0-53.0) Mean Corpuscular Volume 87 fL (79-100) Mean Corpuscular Hemoglobin 30 pg (25-35) Mean Corpuscular Hemoglobin Concent 34 g/dL (31-37) Red Cell Distribution Width 12.4 % (11.5-14.5) Platelet Count 133 x10^3/uL (140-400) Neutrophils (%) (Auto) 83 % (31-73) Lymphocytes (%) (Auto) 14 % (24-48) Monocytes (%) (Auto) 3 % (0-9) Eosinophils (%) (Auto) 0 % (0-3) Basophils (%) (Auto) 0 % (0-3) Neutrophils # (Auto) 9.4 x10^3uL (1.8-7.7) Lymphocytes # (Auto) 1.6 x10^3/uL (1.0-4.8) Monocytes # (Auto) 0.3 x10^3/uL (0.0-1.1) Eosinophils # (Auto) 0.0 x10^3/uL (0.0-0.7) Basophils # (Auto) 0.0 x10^3/uL (0.0-0.2) Sodium Level 146 mmol/L (136-145) Potassium Level 2.6 mmol/L (3.5-5.1) Chloride Level 109 mmol/L (98-107) Carbon Dioxide Level 29 mmol/L (21-32) Anion Gap 8 (6-14) Blood Urea Nitrogen 24 mg/dL (8-26) Creatinine 1.7 mg/dL (0.7-1.3) Estimated GFR (Cockcroft-Gault) 49.4 Glucose Level 150 mg/dL (70-99) Glucose (Fingerstick) 134 mg/dL (70-99) 142 mg/dL (70-99) Calcium Level 7.3 mg/dL (8.5-10.1) Phosphorus Level 2.0 mg/dL (2.6-4.7) Magnesium Level 2.0 mg/dL (1.8-2.4) Laboratory Tests Test 02/20/19 09:30 02/20/19 09:52 02/20/19 11:12 02/20/19 12:03 O2 Saturation 99 % (92-99) Arterial Blood pH 7.54 (7.35-7.45) Arterial Blood pH (Temp corrected) 7.52 Arterial Blood pCO2 at Patient Temp 28 mmHg (35-46) Arterial Blood pCO2 (Temp correct) 29 mmHg Arterial Blood pO2 at Patient Temp 194 mmHg (85-108) Arterial Blood pO2 (Temp corrected) 199 mmHg Arterial Blood HCO3 23 mmol/L (21-28) Arterial Blood Base Excess 2 mmol/L (-3-3) FiO2 50 Glucose (Fingerstick) 170 mg/dL (70-99) 172 mg/dL (70-99) 199 mg/dL (70-99) Test 02/20/19 13:26 02/20/19 15:13 02/20/19 16:23 02/20/19 17:34 Glucose (Fingerstick) 168 mg/dL (70-99) 156 mg/dL (70-99) 173 mg/dL (70-99) 166 mg/dL (70-99) Test 02/20/19 18:22 02/20/19 20:02 02/20/19 21:46 02/20/19 22:51 Glucose (Fingerstick) 153 mg/dL (70-99) 124 mg/dL (70-99) 124 mg/dL (70-99) 129 mg/dL (70-99) Test 02/20/19 23:59 02/21/19 01:06 02/21/19 02:12 02/21/19 03:25 Glucose (Fingerstick) 139 mg/dL (70-99) 159 mg/dL (70-99) 159 mg/dL (70-99) 142 mg/dL (70-99) Test 02/21/19 04:40 02/21/19 06:43 White Blood Count 11.3 x10^3/uL (4.0-11.0) Red Blood Count 3.30 x10^6/uL (4.30-5.70) Hemoglobin 9.9 g/dL (13.0-17.5) Hematocrit 28.7 % (39.0-53.0) Mean Corpuscular Volume 87 fL (79-100) Mean Corpuscular Hemoglobin 30 pg (25-35) Mean Corpuscular Hemoglobin Concent 34 g/dL (31-37) Red Cell Distribution Width 12.4 % (11.5-14.5) Platelet Count 133 x10^3/uL (140-400) Neutrophils (%) (Auto) 83 % (31-73) Lymphocytes (%) (Auto) 14 % (24-48) Monocytes (%) (Auto) 3 % (0-9) Eosinophils (%) (Auto) 0 % (0-3) Basophils (%) (Auto) 0 % (0-3) Neutrophils # (Auto) 9.4 x10^3uL (1.8-7.7) Lymphocytes # (Auto) 1.6 x10^3/uL (1.0-4.8) Monocytes # (Auto) 0.3 x10^3/uL (0.0-1.1) Eosinophils # (Auto) 0.0 x10^3/uL (0.0-0.7) Basophils # (Auto) 0.0 x10^3/uL (0.0-0.2) Sodium Level 146 mmol/L (136-145) Potassium Level 2.6 mmol/L (3.5-5.1) Chloride Level 109 mmol/L (98-107) Carbon Dioxide Level 29 mmol/L (21-32) Anion Gap 8 (6-14) Blood Urea Nitrogen 24 mg/dL (8-26) Creatinine 1.7 mg/dL (0.7-1.3) Estimated GFR (Cockcroft-Gault) 49.4 Glucose Level 150 mg/dL (70-99) Glucose (Fingerstick) 134 mg/dL (70-99) 142 mg/dL (70-99) Calcium Level 7.3 mg/dL (8.5-10.1) Phosphorus Level 2.0 mg/dL (2.6-4.7) Magnesium Level 2.0 mg/dL (1.8-2.4) Medications Active Scripts Medications Dose Route/Sig Max Daily Dose Days Date Category Tums Ultra (Calcium Carbonate) 400 Mg Tab.chew 400 Mg PO BID 02/19/19 Reported Promethazine Hcl 25 Mg Tablet 1 Tab PO BID 02/19/19 Reported Hydroxyzine Hcl 25 Mg Tablet 25 Mg PO HS 02/19/19 Reported Humulin N (Nph, Human Insulin Isophane) 100 Unit/1 Ml Vial 24 Unit SQ DAILY08 02/19/19 Reported Humulin N (Nph, Human Insulin Isophane) 100 Unit/1 Ml Vial 17 Unit SQ HS 02/19/19 Reported Fluoxetine Hcl 20 Mg Capsule 1 Cap PO DAILY 02/19/19 Reported Famotidine 20 Mg Tablet 20 Mg PO BID 02/19/19 Reported Excedrin Migraine Caplet (Aspirin/Acetaminophen/Caffeine) 1 Each Tablet 2 Each PO PRN BID PRN 02/19/19 Reported Acetaminophen 500 Mg Tablet 2 Tab PO BID 02/19/19 Reported Comments CXR 02/20 increase interstitial markings Impression . 1. Respiratory failure secondary to cardiac arrest. 2. Diabetic ketoacidosis triggering cardiac arrest. 3. Shock, likely combination of hypovolemic and cardiac, vs others 4. Acute kidney injury. 5. Marked lactic acidosis and metabolic acidosis. 6. Acute renal failure. 7. Hypokalemia. 8. Hyperglycemia with diabetic ketoacidosis. 9. Abnormal chest x-ray. 10. Mildly increased INR. 11. shock liver 12. Highly suspected anoxic encephalopathy/ myoclonic seizures Page of Plan . 1. cont vent support, setting reviewed, 2. abg, reviewed, decrease vt to 400 3. Prognosis appears to be guarded. He had 45 minutes of asystole and likely of anoxic brain injury is high. He also had hypothermia on arrival. 4. replace k 5. Acute renal failure. 6. Diabetic ketoacidosis , managed per PCP. Insulin protocol 7. Follow chest x-ray reviewed, suspect Non cardiogenic pulmonary edema. 8. elevate hob 9. Insulin per protocol. 10. MRI brain reviewed per neuro 11. Cardiology recommendation and obtain an echocardiogram. 12. Renal recommendation. 13. Stress ulcer prophylaxis. 14. Deep venous thrombosis prophylaxis, scds, will add hep sq. Discussed with RN and RT. We will follow along with you. RIZWAN MAURER MD DR: LEX/pat JOB#: [id number] / [id number] DICTATED BY: RIZWAN MAURER MD 02/19/19 1742 JULIA BISWAS MD Feb 21, 2019 09:22
[2019-02-21 09:28] LABS: FIO2 ABG 40
--- NOTE | 2019-02-21 09:37 | PDOC ---
SUBJECTIVE ROS No purposeful movements OBJECTIVE Vital Signs Vital Signs Date Time Temp Pulse Resp B/P (MAP) Pulse Ox O2 Delivery O2 Flow Rate FiO2 02/21/19 07:26 100 Ventilator 02/21/19 06:00 101 16 100/58 (72) 02/21/19 04:00 99.8 99.8 I & 0 Intake and Output 02/21/19 07:00 Intake Total 4642 ml Output Total 2685 ml Balance 1957 ml Intake Oral 0 ml IV Total 4642 ml Output Urine Total 2685 ml PHYSICAL EXAM Physical Exam General: intubated. no sedation HEENT: NG , ET Neck Supple Lungs: Clear to auscultation, Cardiovascular: RRR Abdomen: Normal bowel sounds, Soft, No tenderness, Extremities: No clubbing, No cyanosis, No edema, Skin: No rashes, No breakdown, No significant lesion Neuro: Intubated, Not sedated Smiley + DIAGNOSIS/ASSESSMENT Assessment & Plan LACY - Post cardiac arrest /DKA Non oliguric, Improving with IVF /DKA protocol UA unremarkable Improving renal function Metabolic acidosis - Sec to DKA Improved Hyperkalemia- Currently Hypokalemic Out of Hospital cardiac arrest, down time 20-30 minutes Pulse less, non-shockable rhythm Respiratory failure secondary to cardiac arrest. Intubated on MV Possible hypoxic/anoxic brain injury MRI Findings are seen consistent with anoxic brain injury Neurology following Diabetes type 1, insulin DKA Initial BS 1500 ,DKA protocol Discussed with RN at bedside COMMENT/RELEVANT DATA Meds Current Medications Medications (Trade) Dose Ordered Sig/Nieves Start Time Stop Time Status Last Admin Dose Admin Calcium Gluconate (Calcium Gluconate) 1,000 mg 1X ONCE 02/19/19 14:30 02/19/19 14:39 DC 02/19/19 16:01 1,000 MG Dextrose (Dextrose 50%-Water Syringe) 12.5 gm PRN Q15MIN PRN 02/21/19 08:45 Dextrose/Sodium Chloride 1,000 ml @ 250 mls/hr Q4H 02/19/19 14:28 02/21/19 08:38 DC 02/21/19 06:46 250 MLS/HR Enoxaparin Sodium (Lovenox 40mg Syringe) 40 mg 1X ONCE 02/19/19 14:00 02/20/19 09:58 DC 02/19/19 16:27 40 MG Info (CONTRAST GIVEN -- Rx MONITORING) 1 each PRN DAILY PRN 02/19/19 13:30 02/21/19 13:29 Insulin Glargine (Lantus) 12 units BID 02/21/19 09:00 Insulin Human Lispro (HumaLOG) 0-7 UNITS TIDWMEALS 02/21/19 12:00 Insulin Human Regular (HumuLIN R VIAL) 10 unit 1X ONCE 02/19/19 14:30 02/19/19 14:39 DC Insulin Human Regular 150 unit/ Sodium Chloride 151.5 ml @ 0 mls/hr CONT PRN PRN 02/19/19 14:30 UNV Iohexol (Omnipaque 300 Mg/ml) 75 ml 1X ONCE 02/19/19 13:30 02/19/19 13:31 DC Lacosamide 100 mg/ Dextrose 60 ml @ 120 mls/hr BID 02/20/19 12:00 02/20/19 18:11 DC 02/20/19 13:00 120 MLS/HR Lacosamide 200 mg/ Dextrose 70 ml @ 120 mls/hr BID 02/20/19 21:00 02/20/19 20:55 120 MLS/HR Levetiracetam 1000 mg/Dextrose 110 ml @ 420 mls/hr Q12HR 02/20/19 21:00 02/20/19 20:55 420 MLS/HR Levetiracetam 750 mg/Dextrose 107.5 ml @ 420 mls/hr Q12HR 02/19/19 22:00 02/20/19 11:07 DC 02/20/19 08:42 420 MLS/HR Lorazepam (Ativan) 2 mg PRN Q4HRS PRN 02/20/19 11:15 02/20/19 23:29 2 MG Morphine Sulfate (Morphine Sulfate) 2 mg PRN Q2HR PRN 02/19/19 14:00 Norepinephrine Bitartrate 250 ml @ 1.875 mls/ hr CONT PRN 02/19/19 21:15 Ondansetron HCl (Zofran) 4 mg PRN Q6HRS PRN 02/19/19 14:00 Pantoprazole Sodium (PROTONIX VIAL for IV PUSH) 40 mg 1X ONCE 02/19/19 14:00 02/19/19 14:01 DC 02/19/19 16:26 40 MG Piperacillin Sod/ Tazobactam Sod 3.375 gm/Sodium Chloride 50 ml @ 100 mls/hr 1X ONCE 02/19/19 15:15 02/19/19 15:44 DC 02/19/19 15:15 100 MLS/HR Potassium Chloride/Water 50 ml @ 50 mls/hr Q1HR 02/21/19 08:00 02/21/19 13:59 UNV Sodium Bicarbonate 150 meq/Dextrose 1,150 ml @ 125 mls/hr Q9H12M 02/19/19 14:15 02/19/19 14:15 DC Sodium Bicarbonate 150 meq/Sterile Water 1,150 ml @ 125 mls/hr Q9H12M 02/19/19 20:00 02/20/19 09:58 DC 02/20/19 05:38 125 MLS/HR Sodium Polystyrene Sulfonate (Kayexalate) 15 gm 1X ONCE 02/19/19 14:30 02/19/19 14:39 DC 02/19/19 16:30 15 GM Sodium Chloride 1,000 ml @ 1,000 mls/hr 1X ONCE 02/19/19 15:15 02/19/19 16:14 DC 02/19/19 16:09 1,000 MLS/HR Sodium Phosphate 20 mmol/Dextrose 256.6667 ml @ 64.167 m... 1X ONCE 02/20/19 08:00 02/20/19 11:59 DC 02/20/19 08:45 64.167 MLS/HR Vancomycin HCl 250 ml @ 250 mls/hr 1X STAT 02/19/19 15:04 02/19/19 16:03 DC Vancomycin HCl 1 gm/Sodium Chloride 250 ml @ 250 mls/hr 1X ONCE 02/19/19 18:30 02/19/19 19:29 DC 02/19/19 17:58 250 MLS/HR Vecuronium [place] (Norcuron Bolus) 10 mg 1X ONCE 02/20/19 13:45 02/20/19 13:46 DC 02/20/19 13:48 10 MG Lab Laboratory Tests Test 02/20/19 09:30 02/20/19 09:52 02/20/19 11:12 02/20/19 12:03 O2 Saturation 99 % (92-99) Arterial Blood pH 7.54 (7.35-7.45) Arterial Blood pH (Temp corrected) 7.52 Arterial Blood pCO2 at Patient Temp 28 mmHg (35-46) Arterial Blood pCO2 (Temp correct) 29 mmHg Arterial Blood pO2 at Patient Temp 194 mmHg (85-108) Arterial Blood pO2 (Temp corrected) 199 mmHg Arterial Blood HCO3 23 mmol/L (21-28) Arterial Blood Base Excess 2 mmol/L (-3-3) FiO2 50 Glucose (Fingerstick) 170 mg/dL (70-99) 172 mg/dL (70-99) 199 mg/dL (70-99) Test 02/20/19 13:26 02/20/19 15:13 02/20/19 16:23 02/20/19 17:34 Glucose (Fingerstick) 168 mg/dL (70-99) 156 mg/dL (70-99) 173 mg/dL (70-99) 166 mg/dL (70-99) Test 02/20/19 18:22 02/20/19 20:02 02/20/19 21:46 02/20/19 22:51 Glucose (Fingerstick) 153 mg/dL (70-99) 124 mg/dL (70-99) 124 mg/dL (70-99) 129 mg/dL (70-99) Test 02/20/19 23:59 02/21/19 01:06 02/21/19 02:12 02/21/19 03:25 Glucose (Fingerstick) 139 mg/dL (70-99) 159 mg/dL (70-99) 159 mg/dL (70-99) 142 mg/dL (70-99) Test 02/21/19 04:40 02/21/19 06:43 White Blood Count 11.3 x10^3/uL (4.0-11.0) Red Blood Count 3.30 x10^6/uL (4.30-5.70) Hemoglobin 9.9 g/dL (13.0-17.5) Hematocrit 28.7 % (39.0-53.0) Mean Corpuscular Volume 87 fL (79-100) Mean Corpuscular Hemoglobin 30 pg (25-35) Mean Corpuscular Hemoglobin Concent 34 g/dL (31-37) Red Cell Distribution Width 12.4 % (11.5-14.5) Platelet Count 133 x10^3/uL (140-400) Neutrophils (%) (Auto) 83 % (31-73) Lymphocytes (%) (Auto) 14 % (24-48) Monocytes (%) (Auto) 3 % (0-9) Eosinophils (%) (Auto) 0 % (0-3) Basophils (%) (Auto) 0 % (0-3) Neutrophils # (Auto) 9.4 x10^3uL (1.8-7.7) Lymphocytes # (Auto) 1.6 x10^3/uL (1.0-4.8) Monocytes # (Auto) 0.3 x10^3/uL (0.0-1.1) Eosinophils # (Auto) 0.0 x10^3/uL (0.0-0.7) Basophils # (Auto) 0.0 x10^3/uL (0.0-0.2) Sodium Level 146 mmol/L (136-145) Potassium Level 2.6 mmol/L (3.5-5.1) Chloride Level 109 mmol/L (98-107) Carbon Dioxide Level 29 mmol/L (21-32) Anion Gap 8 (6-14) Blood Urea Nitrogen 24 mg/dL (8-26) Creatinine 1.7 mg/dL (0.7-1.3) Estimated GFR (Cockcroft-Gault) 49.4 Glucose Level 150 mg/dL (70-99) Glucose (Fingerstick) 134 mg/dL (70-99) 142 mg/dL (70-99) Calcium Level 7.3 mg/dL (8.5-10.1) Phosphorus Level 2.0 mg/dL (2.6-4.7) Magnesium Level 2.0 mg/dL (1.8-2.4) Results All relevant outside records, renal labs, imaging studies, telemetry/EKG's were reviewed. PORTER GREGG MD Feb 21, 2019 09:37
[2019-02-21] MEDS: PANTOPRAZOLE IV PUSH 40 MG VIAL. IVP SCH (10:32)
[2019-02-21] MEDS: LACOSAMIDE 200 MG in IV DEXTROSE 5% 50 ML IV SCH ×2 (10:34→21:04)
[2019-02-21] MEDS ORDERED: INSULIN LISPRO 300 UNITS/3 ML INSULN.PEN. SQ SCH (12:00)
[2019-02-21] MEDS: INSULIN GLARGINE 300 UNITS/3 ML INSULN.PEN. SQ SCH ×2 (14:31→21:00)
--- NOTE | 2019-02-21 16:06 | PDOC ---
PROGRESS NOTES Assessment Assessment Anoxia/hypoxia encephalopathy. Hypoxic brain injury, especially the cortex. Metabolic encephalopathy. S/p cardiac arrest, PEA, down time estimated 20-30 minutes. Respiratory failure. Aspiration or pulmonary infiltrate. Hyperglycemia, glucose level 1510. Lactic acidosis. Leukocytosis. Myoclonus in status epilepticus. Shock. Renal failure. Elevated hepatic enzymes. Hyponatremia, Na+ 124. Hyperkalemia, K+ 7.3. Hyper-phosphorus Hypocalcemia. DM, type 1. Poor prognosis. RECOMMENDATIONS/PLAN: Life support in ICU at the present time. Increase Keppra to 1500 mg IV q12h. Continue Vimpat 200 mg IV q12h. Ativan 2 mg IV PRN q4h, for seizure control. Control hyperglycemia. Correct electrolytes imbalances. Rehydration. Treat medical diseases. Consulted Cardiology. Discussed with his grandmother about poor prognosis at bedside in ICU on . Brain MRI on 02/20/19: In consistent with hypoxia brain injury. Refer to Radiology reports. EEG: Abnormal. PLEDs on near isoelectric background. History of Present Illness This is a 23-year-old male inmate with history of diabetes type 1 on insulin treatment. He was reportedly refused insulin in facility. He was found down by guards as pulseless. He received CPR with 2 injections of epi and the downtime was estimated 20-30 minutes. He was intubated outside of the hospital before arrival to the ER of [facility]. He remained unresponsive. Pupils are sluggish and dilated. His glucose was 1510. Neurology was requested for consultation for anoxic brain injury. Myoclonic movements in left UE significantly decreased on 02/20/19 after treatment, but still not resolved. Past Medical History Endocrine: Diabetes Past Surgical History No pertinent history Family History Unknown Social History Smoke: Unknown. ALCOHOL: Unknown. Drugs: None ALLERGY: Unknown MEDICATIONS: Refer to MAR REVIEW OF SYSTEMS: Constitutional: No malnutrition, weight loss, cachexia. Head: No traumatic brain or head injury. Skin: No edema, or rash. Ear: No infection. Eyes: No vision loss or color blindness. Nose: No bleeding or purulent discharges. Hearing: No hearing decrease. Neck: No injury. Cardiac: Cardiac arrest this time. Pulmonary: Respiratory failure this time. GI: No GI ulcer, GI bleeding. Urinary/genital: Unknown. Endocrinologic: Diabetes Mellitus. Skeletomuscular: No muscular atrophy. Neurological: see HP. Psychiatric: Denies drug use/abuse. Otherwise, not [id number] review of systems. PHYSICAL EXAMINATION: General appearance is in acute distress. HEENT: Normocephalic and nontraumatic. Eyes, nose, ears, and throat are unremarkable. Neck is supple. No lymphadenopathy. No crepitus. Cardiovascular: S1, S2, regular rate and rhythm. Pulmonary: On vent. Abdomen: Bowel sounds are positive. Extremities: No rash. NEUROLOGICAL EXAMINATION: On vent. In coma. No sedation. Not oriented to time, place and person. Pupils 1-2 mm, not sensitive to light stimuli. EOMI not elicited. CN: no acute focal findings. Muscle tone: decreased. Muscle strength: Minimal movements noted in feet to pain stimuli. DTR: 0-1 Plantar reflex: No response bilaterally Gait: not able to walk in this mentation. Sensory exam: No response to pain stimuli except plantar exam. Not able to access cerebellar signs. F-T-N test not performed due to in coma. Myoclonic movements in left UE improved, but still visible. Objective Objective Vital Signs Date Time Temp Pulse Resp B/P (MAP) Pulse Ox O2 Delivery O2 Flow Rate FiO2 02/21/19 15:00 100 Ventilator 02/21/19 13:00 100 108/65 (79) 02/21/19 12:00 99.0 19 99.0 Intake and Output 02/21/19 07:00 Intake Total 4642 ml Output Total 2685 ml Balance 1957 ml Intake Oral 0 ml IV Total 4642 ml Output Urine Total 2685 ml Vitals Signs Vitals VS - Last 72 Hours, by Label Date Time Temp Pulse Resp B/P (MAP) Pulse Ox O2 Delivery O2 Flow Rate FiO2 02/21/19 15:00 100 Ventilator 02/21/19 13:00 100 108/65 (79) 100 Ventilator 02/21/19 12:25 99 Ventilator 02/21/19 12:00 99.0 100 19 122/70 (87) 100 Ventilator 99.0 02/21/19 12:00 Mechanical Ventilator 02/21/19 11:25 100 Ventilator 02/21/19 11:00 98 16 101/60 (74) 100 Ventilator 02/21/19 10:00 98 18 111/65 (80) 99 Ventilator 02/21/19 09:30 99 Ventilator 02/21/19 09:00 98 14 97/62 (74) 99 Ventilator 02/21/19 08:00 Mechanical Ventilator 02/21/19 08:00 98 14 90/54 (66) 99 Ventilator 02/21/19 07:26 100 Ventilator 02/21/19 07:00 99.3 98 14 102/61 (75) 100 Ventilator 99.3 02/21/19 06:00 101 16 100/58 (72) 100 Ventilator 02/21/19 05:00 99 14 103/60 (74) 100 Ventilator 02/21/19 04:00 99.8 94 13 97/60 (72) 100 Ventilator 99.8 02/21/19 04:00 Mechanical Ventilator 02/21/19 03:55 100 Ventilator 02/21/19 03:00 96 15 95/62 (73) 100 Ventilator 02/21/19 02:00 98 14 103/58 (73) 100 Ventilator 02/21/19 01:00 98 14 90/56 (67) 100 Ventilator 02/21/19 00:00 99.9 98 14 86/55 (65) 100 Ventilator 99.9 02/20/19 23:59 Mechanical Ventilator 02/20/19 23:53 99 Ventilator 02/20/19 23:00 96 17 95/54 (68) 100 Ventilator 02/20/19 22:00 104 16 100/54 (69) 100 Ventilator 02/20/19 21:00 99.8 103 16 107/78 (88) 99 Ventilator 99.8 02/20/19 20:08 99 Ventilator 02/20/19 20:00 102 18 93/46 (62) 99 Ventilator 02/20/19 20:00 Mechanical Ventilator 02/20/19 19:00 102 18 95/65 (75) 99 Ventilator 02/20/19 18:00 102 18 100 Ventilator 02/20/19 17:00 102 16 91/46 (61) 99 Ventilator 02/20/19 16:55 100 Ventilator 02/20/19 16:25 100.0 104 89/53 (65) 98 Ventilator 100.0 02/20/19 16:00 Mechanical Ventilator 02/20/19 15:00 112 103/55 (71) 100 Ventilator 02/20/19 14:47 100 Ventilator 02/20/19 14:00 112 107/57 (74) 98 Ventilator 02/20/19 12:35 100 Ventilator 02/20/19 12:00 99.3 110 109/59 (76) 100 Ventilator 99.3 02/20/19 12:00 Mechanical Ventilator 02/20/19 11:00 110 107/64 (78) 100 Ventilator 02/20/19 10:00 112 18 116/59 (78) 100 Ventilator 02/20/19 09:00 112 22 96/58 (71) 99 Ventilator 02/20/19 08:00 Mechanical Ventilator 02/20/19 08:00 100.3 118 100/58 (72) 99 Ventilator 100.3 02/20/19 07:00 120 100 Ventilator Laboratory Laboratory Laboratory Tests Test 02/20/19 16:23 02/20/19 17:34 02/20/19 18:22 02/20/19 20:02 Glucose (Fingerstick) 173 mg/dL (70-99) 166 mg/dL (70-99) 153 mg/dL (70-99) 124 mg/dL (70-99) Test 02/20/19 21:46 02/20/19 22:51 02/20/19 23:59 02/21/19 01:06 Glucose (Fingerstick) 124 mg/dL (70-99) 129 mg/dL (70-99) 139 mg/dL (70-99) 159 mg/dL (70-99) Test 02/21/19 02:12 02/21/19 03:25 02/21/19 04:40 02/21/19 06:43 Glucose (Fingerstick) 159 mg/dL (70-99) 142 mg/dL (70-99) 134 mg/dL (70-99) 142 mg/dL (70-99) White Blood Count 11.3 x10^3/uL (4.0-11.0) Red Blood Count 3.30 x10^6/uL (4.30-5.70) Hemoglobin 9.9 g/dL (13.0-17.5) Hematocrit 28.7 % (39.0-53.0) Mean Corpuscular Volume 87 fL (79-100) Mean Corpuscular Hemoglobin 30 pg (25-35) Mean Corpuscular Hemoglobin Concent 34 g/dL (31-37) Red Cell Distribution Width 12.4 % (11.5-14.5) Platelet Count 133 x10^3/uL (140-400) Neutrophils (%) (Auto) 83 % (31-73) Lymphocytes (%) (Auto) 14 % (24-48) Monocytes (%) (Auto) 3 % (0-9) Eosinophils (%) (Auto) 0 % (0-3) Basophils (%) (Auto) 0 % (0-3) Neutrophils # (Auto) 9.4 x10^3uL (1.8-7.7) Lymphocytes # (Auto) 1.6 x10^3/uL (1.0-4.8) Monocytes # (Auto) 0.3 x10^3/uL (0.0-1.1) Eosinophils # (Auto) 0.0 x10^3/uL (0.0-0.7) Basophils # (Auto) 0.0 x10^3/uL (0.0-0.2) Sodium Level 146 mmol/L (136-145) Potassium Level 2.6 mmol/L (3.5-5.1) Chloride Level 109 mmol/L (98-107) Carbon Dioxide Level 29 mmol/L (21-32) Anion Gap 8 (6-14) Blood Urea Nitrogen 24 mg/dL (8-26) Creatinine 1.7 mg/dL (0.7-1.3) Estimated GFR (Cockcroft-Gault) 49.4 Glucose Level 150 mg/dL (70-99) Calcium Level 7.3 mg/dL (8.5-10.1) Phosphorus Level 2.0 mg/dL (2.6-4.7) Magnesium Level 2.0 mg/dL (1.8-2.4) Test 02/21/19 07:00 02/21/19 09:19 02/21/19 09:52 02/21/19 13:30 O2 Saturation 99 % (92-99) Arterial Blood pH 7.53 (7.35-7.45) Arterial Blood pCO2 at Patient Temp 34 mmHg (35-46) Arterial Blood pO2 at Patient Temp 180 mmHg (85-108) Arterial Blood HCO3 27 mmol/L (21-28) Arterial Blood Base Excess 5 mmol/L (-3-3) FiO2 40 Glucose (Fingerstick) 57 mg/dL (70-99) 113 mg/dL (70-99) 284 mg/dL (70-99) Microbiology 02/19/19 Blood Culture - Preliminary, Resulted NO GROWTH AFTER 2 DAYS Medication Medications Current Medications Dextrose (Dextrose 50%-Water Syringe) 12.5 gm PRN Q15MIN PRN IV SEE COMMENTS; Start 02/21/19 at 08:45 Insulin Glargine (Lantus) 12 units BID SQ Last administered on 02/21/19at 14:31 ; Start 02/21/19 at 09:00 Insulin Human Lispro (HumaLOG) 0-7 UNITS TIDWMEALS SQ ; Start 02/21/19 at 12:00 ; Stop 02/21/19 at 14:10; Status DC Lacosamide 200 mg/ Dextrose 70 ml @ 120 mls/hr BID IV Last administered on 10/01at 10:34; Start 02/20/19 at 21:00 Levetiracetam 1000 mg/Dextrose 110 ml @ 420 mls/hr Q12HR IV Last administered on 02/21/19at 09:00; Start 02/20/19 at 21:00 Potassium Chloride/Water 50 ml @ 50 mls/hr Q1H IV Last administered on at 10:35; Start 02/21/19 at 08:00; Stop 02/21/19 at 11:59; Status DC Potassium Chloride/Water 50 ml @ 50 mls/hr Q1HR IV ; Start 02/21/19 at 08:00; Stop 02/21/19 at 13:59; Status UNV Comment Review of Relevant I have reviewed the following items bree (where applicable) has been applied. NARCISO KHAN MD Feb 21, 2019 16:06
[2019-02-21] MEDS ORDERED: POTASSIUM PHOSPHATE DIBASIC 15 MMOL in IV NORMAL SALINE 250ML 250 ML IV ONE (20:00)
[2019-02-22] VITALS (14 sets, daily range): BP systolic 93–128; BP diastolic 51–78
[2019-02-22] MEDS: INSULIN LISPRO 300 UNITS/3 ML INSULN.PEN. SQ SCH ×3 (02:04→12:00)
[2019-02-22 05:53] LABS: CREATININE 1.2 mg/dL (0.7-1.3); GFR 73.8; POTASSIUM 3.6 mmol/L (3.5-5.1)
--- NOTE | 2019-02-22 06:25 | PDOC ---
PULMONARY PROGRESS NOTES Subjective on vent, no response, small mod secretion, febrile Vitals Vital Signs Date Time Temp Pulse Resp B/P (MAP) Pulse Ox O2 Delivery O2 Flow Rate FiO2 02/22/19 05:34 99 Ventilator 02/22/19 04:00 100.1 105 18 109/67 (81) 100.1 Comments ros as mentioned as above discussed w rn, rt, other sys otherwise neg on vent no response HEENT: Other (nc at perrl nose clear, orally intubated neck no lad no thyromegaly) Lungs: Other (decrease bs) Cardiovascular: S1, S2 Abdomen: Soft, Non-tender, Other (no mass) Extremities: No Edema Skin: Warm Labs Laboratory Tests Test 02/20/19 07:56 02/20/19 09:30 02/20/19 09:52 02/20/19 11:12 Glucose (Fingerstick) 150 mg/dL (70-99) 170 mg/dL (70-99) 172 mg/dL (70-99) O2 Saturation 99 % (92-99) Arterial Blood pH 7.54 (7.35-7.45) Arterial Blood pH (Temp corrected) 7.52 Arterial Blood pCO2 at Patient Temp 28 mmHg (35-46) Arterial Blood pCO2 (Temp correct) 29 mmHg Arterial Blood pO2 at Patient Temp 194 mmHg (85-108) Arterial Blood pO2 (Temp corrected) 199 mmHg Arterial Blood HCO3 23 mmol/L (21-28) Arterial Blood Base Excess 2 mmol/L (-3-3) FiO2 50 Test 02/20/19 12:03 02/20/19 13:26 02/20/19 15:13 02/20/19 16:23 Glucose (Fingerstick) 199 mg/dL (70-99) 168 mg/dL (70-99) 156 mg/dL (70-99) 173 mg/dL (70-99) Test 02/20/19 17:34 02/20/19 18:22 02/20/19 20:02 02/20/19 21:46 Glucose (Fingerstick) 166 mg/dL (70-99) 153 mg/dL (70-99) 124 mg/dL (70-99) 124 mg/dL (70-99) Test 02/20/19 22:51 02/20/19 23:59 02/21/19 01:06 02/21/19 02:12 Glucose (Fingerstick) 129 mg/dL (70-99) 139 mg/dL (70-99) 159 mg/dL (70-99) 159 mg/dL (70-99) Test 02/21/19 03:25 02/21/19 04:40 02/21/19 06:43 02/21/19 07:00 Glucose (Fingerstick) 142 mg/dL (70-99) 134 mg/dL (70-99) 142 mg/dL (70-99) White Blood Count 11.3 x10^3/uL (4.0-11.0) Red Blood Count 3.30 x10^6/uL (4.30-5.70) Hemoglobin 9.9 g/dL (13.0-17.5) Hematocrit 28.7 % (39.0-53.0) Mean Corpuscular Volume 87 fL (79-100) Mean Corpuscular Hemoglobin 30 pg (25-35) Mean Corpuscular Hemoglobin Concent 34 g/dL (31-37) Red Cell Distribution Width 12.4 % (11.5-14.5) Platelet Count 133 x10^3/uL (140-400) Neutrophils (%) (Auto) 83 % (31-73) Lymphocytes (%) (Auto) 14 % (24-48) Monocytes (%) (Auto) 3 % (0-9) Eosinophils (%) (Auto) 0 % (0-3) Basophils (%) (Auto) 0 % (0-3) Neutrophils # (Auto) 9.4 x10^3uL (1.8-7.7) Lymphocytes # (Auto) 1.6 x10^3/uL (1.0-4.8) Monocytes # (Auto) 0.3 x10^3/uL (0.0-1.1) Eosinophils # (Auto) 0.0 x10^3/uL (0.0-0.7) Basophils # (Auto) 0.0 x10^3/uL (0.0-0.2) Sodium Level 146 mmol/L (136-145) Potassium Level 2.6 mmol/L (3.5-5.1) Chloride Level 109 mmol/L (98-107) Carbon Dioxide Level 29 mmol/L (21-32) Anion Gap 8 (6-14) Blood Urea Nitrogen 24 mg/dL (8-26) Creatinine 1.7 mg/dL (0.7-1.3) Estimated GFR (Cockcroft-Gault) 49.4 Glucose Level 150 mg/dL (70-99) Calcium Level 7.3 mg/dL (8.5-10.1) Phosphorus Level 2.0 mg/dL (2.6-4.7) Magnesium Level 2.0 mg/dL (1.8-2.4) O2 Saturation 99 % (92-99) Arterial Blood pH 7.53 (7.35-7.45) Arterial Blood pCO2 at Patient Temp 34 mmHg (35-46) Arterial Blood pO2 at Patient Temp 180 mmHg (85-108) Arterial Blood HCO3 27 mmol/L (21-28) Arterial Blood Base Excess 5 mmol/L (-3-3) FiO2 40 Test 02/21/19 09:19 02/21/19 09:52 02/21/19 13:30 02/21/19 17:30 Glucose (Fingerstick) 57 mg/dL (70-99) 113 mg/dL (70-99) 284 mg/dL (70-99) 296 mg/dL (70-99) Test 02/21/19 20:58 02/22/19 02:00 02/22/19 05:24 02/22/19 05:30 Glucose (Fingerstick) 252 mg/dL (70-99) 240 mg/dL (70-99) 239 mg/dL (70-99) Sodium Level 143 mmol/L (136-145) Potassium Level 3.6 mmol/L (3.5-5.1) Chloride Level 106 mmol/L (98-107) Carbon Dioxide Level 28 mmol/L (21-32) Anion Gap 9 (6-14) Blood Urea Nitrogen 22 mg/dL (8-26) Creatinine 1.2 mg/dL (0.7-1.3) Estimated GFR (Cockcroft-Gault) 73.8 Glucose Level 249 mg/dL (70-99) Calcium Level 8.0 mg/dL (8.5-10.1) Laboratory Tests Test 02/21/19 06:43 02/21/19 07:00 02/21/19 09:19 02/21/19 09:52 Glucose (Fingerstick) 142 mg/dL (70-99) 57 mg/dL (70-99) 113 mg/dL (70-99) O2 Saturation 99 % (92-99) Arterial Blood pH 7.53 (7.35-7.45) Arterial Blood pCO2 at Patient Temp 34 mmHg (35-46) Arterial Blood pO2 at Patient Temp 180 mmHg (85-108) Arterial Blood HCO3 27 mmol/L (21-28) Arterial Blood Base Excess 5 mmol/L (-3-3) FiO2 40 Test 02/21/19 13:30 02/21/19 17:30 02/21/19 20:58 02/22/19 02:00 Glucose (Fingerstick) 284 mg/dL (70-99) 296 mg/dL (70-99) 252 mg/dL (70-99) 240 mg/dL (70-99) Test 02/22/19 05:24 02/22/19 05:30 Glucose (Fingerstick) 239 mg/dL (70-99) Sodium Level 143 mmol/L (136-145) Potassium Level 3.6 mmol/L (3.5-5.1) Chloride Level 106 mmol/L (98-107) Carbon Dioxide Level 28 mmol/L (21-32) Anion Gap 9 (6-14) Blood Urea Nitrogen 22 mg/dL (8-26) Creatinine 1.2 mg/dL (0.7-1.3) Estimated GFR (Cockcroft-Gault) 73.8 Glucose Level 249 mg/dL (70-99) Calcium Level 8.0 mg/dL (8.5-10.1) Medications Active Scripts Medications Dose Route/Sig Max Daily Dose Days Date Category Tums Ultra (Calcium Carbonate) 400 Mg Tab.chew 400 Mg PO BID 02/19/19 Reported Promethazine Hcl 25 Mg Tablet 1 Tab PO BID 02/19/19 Reported Hydroxyzine Hcl 25 Mg Tablet 25 Mg PO HS 02/19/19 Reported Humulin N (Nph, Human Insulin Isophane) 100 Unit/1 Ml Vial 24 Unit SQ DAILY08 02/19/19 Reported Humulin N (Nph, Human Insulin Isophane) 100 Unit/1 Ml Vial 17 Unit SQ HS 02/19/19 Reported Fluoxetine Hcl 20 Mg Capsule 1 Cap PO DAILY 02/19/19 Reported Famotidine 20 Mg Tablet 20 Mg PO BID 02/19/19 Reported Excedrin Migraine Caplet (Aspirin/Acetaminophen/Caffeine) 1 Each Tablet 2 Each PO PRN BID PRN 02/19/19 Reported Acetaminophen 500 Mg Tablet 2 Tab PO BID 02/19/19 Reported Comments CXR 02/22 b lat infilt improved. ett ok Impression . 1. acute Respiratory failure secondary to cardiac arrest. 2. Diabetic ketoacidosis triggering cardiac arrest. 3. Shock, likely combination of hypovolemic and cardiac, vs others 4. Acute kidney injury. 5. Marked lactic acidosis and metabolic acidosis. 6. Acute renal failure. 7. Hypokalemia. 8. Hyperglycemia with diabetic ketoacidosis. 9. Abnormal chest x-ray. 10. Mildly increased INR. 11. shock liver 12. Highly suspected anoxic encephalopathy/ myoclonic seizures Page of Plan . 1. cont vent support, setting reviewed, 2. will review abg, febrile, will do bcx, sputum cx, start zosyn 3. Prognosis appears to be guarded. He had 45 minutes of asystole and likely of anoxic brain injury is high. He also had hypothermia on arrival. 4. replace k 5. Acute renal failure. 6. Diabetic ketoacidosis , managed per PCP. Insulin protocol 7. Follow chest x-ray reviewed, suspect Non cardiogenic pulmonary edema. 8. elevate hob 9. Insulin per protocol. 10. MRI brain reviewed, per neuro 11. Cardiology recommendation and obtain an echocardiogram. 12. Renal recommendation. 13. Stress ulcer prophylaxis. 14. Deep venous thrombosis prophylaxis, scds, inr elevated bf, recheck if nl, start hep sq Discussed with RN and RT. We will follow along with you. JULIA BISWAS MD Feb 22, 2019 06:25
[2019-02-22] MEDS ORDERED: PIP/TAZO PER PHARMACY MC PRN (06:30)
[2019-02-22] MEDS: PANTOPRAZOLE IV PUSH 40 MG VIAL. IVP SCH (07:30)
--- NOTE | 2019-02-22 07:53 | PDOC ---
PROGRESS NOTES Chief Complaint Chief Complaint Status post CODE BLUE Acute respiratory failure hypoxemic in nature History of diabetes mellitus type 1 DKA on insulin protocol Anoxic brain injury - shows myoclonus and some lack of brain stem function ( absent corneal and gag reflex) Plan: We'll follow recommendations from neurology MRI noted continue supportive measures, patient needs withdrawal of care in light of his condition and overall grim prognosis. will start lantus insulin for glycemia control discontinue iv fluids History of Present Illness History of Present Illness 23[facility] M [facility] who was reportedly found down by guards as pulseless. He received CPR with 2 injections of epi and the downtime was estimated 20-30 minutes. He was intubated outside of the hospital before arrival to the ER of [facility]. He remained unresponsive. Pupils are sluggish and dilated. His glucose was 1510. Neurology was requested for consultation for anoxic brain injury. Myoclonic movements in left UE significantly decreased on 02/20/19 after treatment, but still not resolved. No purposeful movement, not responding to noxious stimuli, chain of events and labs reviewed. Less myoclonus. Mother is bedside this morning and we have discussed his condition in depth. She wishes for withdrawal of care and DNR/DNI status. Will d/w pulm for discontinuation of apnea test and other measures. mri results and eeg results noted I discussed with mother bedside. She has made her wish clear to discontinuing ventilation today after her other son arrives and would like his organs and body donated (she prefers [facility]). Vitals Vitals Vital Signs Date Time Temp Pulse Resp B/P (MAP) Pulse Ox O2 Delivery O2 Flow Rate FiO2 02/22/19 06:00 100 17 109/67 (81) 100 Ventilator 02/22/19 04:00 100.1 100.1 Physical Exam General: Other (intubated) Heart: Normal S1, Normal S2, Other (tachycardic) Lungs: Other (decrease bs) Abdomen: Normal bowel sounds, Soft, No tenderness, No hepatosplenomegaly, No masses Extremities: No edema, Normal pulses Skin: No significant lesion Labs LABS Laboratory Tests Test 02/21/19 09:19 02/21/19 09:52 02/21/19 13:30 02/21/19 17:30 Glucose (Fingerstick) 57 mg/dL (70-99) 113 mg/dL (70-99) 284 mg/dL (70-99) 296 mg/dL (70-99) Test 02/21/19 20:58 02/22/19 02:00 02/22/19 05:24 02/22/19 05:30 Glucose (Fingerstick) 252 mg/dL (70-99) 240 mg/dL (70-99) 239 mg/dL (70-99) Sodium Level 143 mmol/L (136-145) Potassium Level 3.6 mmol/L (3.5-5.1) Chloride Level 106 mmol/L (98-107) Carbon Dioxide Level 28 mmol/L (21-32) Anion Gap 9 (6-14) Blood Urea Nitrogen 22 mg/dL (8-26) Creatinine 1.2 mg/dL (0.7-1.3) Estimated GFR (Cockcroft-Gault) 73.8 Glucose Level 249 mg/dL (70-99) Calcium Level 8.0 mg/dL (8.5-10.1) Assessment and Plan Assessmemt and Plan Problems Medical Problems: (1) Acute renal insufficiency Status: Acute (2) Cardiac arrest Status: Acute (3) Hepatic failure Status: Acute (4) History of sepsis Status: Acute (5) Hyperkalemia Status: Acute (6) Metabolic acidosis Status: Acute Comment Review of Relevant I have reviewed the following items bree (where applicable) has been applied. Labs Laboratory Tests Test 02/20/19 07:56 02/20/19 09:30 02/20/19 09:52 02/20/19 11:12 Glucose (Fingerstick) 150 mg/dL (70-99) 170 mg/dL (70-99) 172 mg/dL (70-99) O2 Saturation 99 % (92-99) Arterial Blood pH 7.54 (7.35-7.45) Arterial Blood pH (Temp corrected) 7.52 Arterial Blood pCO2 at Patient Temp 28 mmHg (35-46) Arterial Blood pCO2 (Temp correct) 29 mmHg Arterial Blood pO2 at Patient Temp 194 mmHg (85-108) Arterial Blood pO2 (Temp corrected) 199 mmHg Arterial Blood HCO3 23 mmol/L (21-28) Arterial Blood Base Excess 2 mmol/L (-3-3) FiO2 50 Test 02/20/19 12:03 02/20/19 13:26 02/20/19 15:13 02/20/19 16:23 Glucose (Fingerstick) 199 mg/dL (70-99) 168 mg/dL (70-99) 156 mg/dL (70-99) 173 mg/dL (70-99) Test 02/20/19 17:34 02/20/19 18:22 02/20/19 20:02 02/20/19 21:46 Glucose (Fingerstick) 166 mg/dL (70-99) 153 mg/dL (70-99) 124 mg/dL (70-99) 124 mg/dL (70-99) Test 02/20/19 22:51 02/20/19 23:59 02/21/19 01:06 02/21/19 02:12 Glucose (Fingerstick) 129 mg/dL (70-99) 139 mg/dL (70-99) 159 mg/dL (70-99) 159 mg/dL (70-99) Test 02/21/19 03:25 02/21/19 04:40 02/21/19 06:43 02/21/19 07:00 Glucose (Fingerstick) 142 mg/dL (70-99) 134 mg/dL (70-99) 142 mg/dL (70-99) White Blood Count 11.3 x10^3/uL (4.0-11.0) Red Blood Count 3.30 x10^6/uL (4.30-5.70) Hemoglobin 9.9 g/dL (13.0-17.5) Hematocrit 28.7 % (39.0-53.0) Mean Corpuscular Volume 87 fL (79-100) Mean Corpuscular Hemoglobin 30 pg (25-35) Mean Corpuscular Hemoglobin Concent 34 g/dL (31-37) Red Cell Distribution Width 12.4 % (11.5-14.5) Platelet Count 133 x10^3/uL (140-400) Neutrophils (%) (Auto) 83 % (31-73) Lymphocytes (%) (Auto) 14 % (24-48) Monocytes (%) (Auto) 3 % (0-9) Eosinophils (%) (Auto) 0 % (0-3) Basophils (%) (Auto) 0 % (0-3) Neutrophils # (Auto) 9.4 x10^3uL (1.8-7.7) Lymphocytes # (Auto) 1.6 x10^3/uL (1.0-4.8) Monocytes # (Auto) 0.3 x10^3/uL (0.0-1.1) Eosinophils # (Auto) 0.0 x10^3/uL (0.0-0.7) Basophils # (Auto) 0.0 x10^3/uL (0.0-0.2) Sodium Level 146 mmol/L (136-145) Potassium Level 2.6 mmol/L (3.5-5.1) Chloride Level 109 mmol/L (98-107) Carbon Dioxide Level 29 mmol/L (21-32) Anion Gap 8 (6-14) Blood Urea Nitrogen 24 mg/dL (8-26) Creatinine 1.7 mg/dL (0.7-1.3) Estimated GFR (Cockcroft-Gault) 49.4 Glucose Level 150 mg/dL (70-99) Calcium Level 7.3 mg/dL (8.5-10.1) Phosphorus Level 2.0 mg/dL (2.6-4.7) Magnesium Level 2.0 mg/dL (1.8-2.4) O2 Saturation 99 % (92-99) Arterial Blood pH 7.53 (7.35-7.45) Arterial Blood pCO2 at Patient Temp 34 mmHg (35-46) Arterial Blood pO2 at Patient Temp 180 mmHg (85-108) Arterial Blood HCO3 27 mmol/L (21-28) Arterial Blood Base Excess 5 mmol/L (-3-3) FiO2 40 Test 02/21/19 09:19 02/21/19 09:52 02/21/19 13:30 02/21/19 17:30 Glucose (Fingerstick) 57 mg/dL (70-99) 113 mg/dL (70-99) 284 mg/dL (70-99) 296 mg/dL (70-99) Test 02/21/19 20:58 02/22/19 02:00 02/22/19 05:24 02/22/19 05:30 Glucose (Fingerstick) 252 mg/dL (70-99) 240 mg/dL (70-99) 239 mg/dL (70-99) Sodium Level 143 mmol/L (136-145) Potassium Level 3.6 mmol/L (3.5-5.1) Chloride Level 106 mmol/L (98-107) Carbon Dioxide Level 28 mmol/L (21-32) Anion Gap 9 (6-14) Blood Urea Nitrogen 22 mg/dL (8-26) Creatinine 1.2 mg/dL (0.7-1.3) Estimated GFR (Cockcroft-Gault) 73.8 Glucose Level 249 mg/dL (70-99) Calcium Level 8.0 mg/dL (8.5-10.1) Laboratory Tests Test 02/21/19 09:19 02/21/19 09:52 02/21/19 13:30 02/21/19 17:30 Glucose (Fingerstick) 57 mg/dL (70-99) 113 mg/dL (70-99) 284 mg/dL (70-99) 296 mg/dL (70-99) Test 02/21/19 20:58 02/22/19 02:00 02/22/19 05:24 02/22/19 05:30 Glucose (Fingerstick) 252 mg/dL (70-99) 240 mg/dL (70-99) 239 mg/dL (70-99) Sodium Level 143 mmol/L (136-145) Potassium Level 3.6 mmol/L (3.5-5.1) Chloride Level 106 mmol/L (98-107) Carbon Dioxide Level 28 mmol/L (21-32) Anion Gap 9 (6-14) Blood Urea Nitrogen 22 mg/dL (8-26) Creatinine 1.2 mg/dL (0.7-1.3) Estimated GFR (Cockcroft-Gault) 73.8 Glucose Level 249 mg/dL (70-99) Calcium Level 8.0 mg/dL (8.5-10.1) Microbiology 02/19/19 Blood Culture - Preliminary, Resulted NO GROWTH AFTER 2 DAYS Medications Current Medications Sodium Chloride 1,000 ml @ 1,000 mls/hr Q1H IV Last administered on 02/19/19at 13:00; Start 02/19/19 at 13:30; Stop 02/19/19 at 14:29; Status DC Sodium Chloride 1,000 ml @ 1,000 mls/hr 1X ONCE IV Last administered on at 13:00; Start 02/19/19 at 13:15; Stop 02/19/19 at 14:14; Status DC Insulin Human Regular (HumuLIN R VIAL) 10 unit 1X ONCE IV Last administered on 02/19/19at 13:34; Start 02/19/19 at 13:15; Stop 02/19/19 at 13:23; Status DC Insulin Human Regular 150 ml @ 7 mls/hr 1X ONCE IV Last administered on at 13:42; Start 02/19/19 at 13:15; Stop 02/20/19 at 10:40; Status DC Iohexol (Omnipaque 300 Mg/ml) 75 ml 1X ONCE IV ; Start 02/19/19 at 13:30; Stop 02/19/19 at 13:31; Status DC Sodium Chloride 1,000 ml @ 1,000 mls/hr 1X ONCE IV Last administered on at 13:30; Start 02/19/19 at 13:30; Stop 02/19/19 at 14:29; Status DC Info (CONTRAST GIVEN -- Rx MONITORING) 1 each PRN DAILY PRN MC SEE COMMENTS; Start 02/19/19 at 13:30; Stop 02/21/19 at 13:29; Status DC Insulin Human Regular 150 ml @ As Directed STK-MED ONCE IV ; Start 02/19/19 at 13:23; Stop 02/19/19 at 13:24; Status DC Norepinephrine Bitartrate 250 ml @ 0 mls/hr 1X ONCE IV Last administered on 02/19/19at 13:37; Start 02/19/19 at 13:30; Stop 02/19/19 at 13:31; Status DC Pantoprazole Sodium (PROTONIX VIAL for IV PUSH) 40 mg DAILYAC IVP Last administered on 02/21/19at 10:32; Start 02/20/19 at 07:30 Pantoprazole Sodium (PROTONIX VIAL for IV PUSH) 40 mg 1X ONCE IVP Last administered on 02/19/19at 16:26; Start 02/19/19 at 14:00; Stop 02/19/19 at 14:01; Status DC Ondansetron HCl (Zofran) 4 mg PRN Q6HRS PRN IV NAUSEA/VOMITING; Start 02/19/19 at 14:00 Morphine Sulfate (Morphine Sulfate) 2 mg PRN Q2HR PRN IV PAIN; Start 02/19/19 at 14:00 Enoxaparin Sodium (Lovenox 40mg Syringe) 40 mg Q24H SQ ; Start 02/20/19 at 09:00 ; Stop 02/20/19 at 09:58; Status DC Enoxaparin Sodium (Lovenox 40mg Syringe) 40 mg 1X ONCE SQ Last administered on 02/19/19at 16:27; Start 02/19/19 at 14:00; Stop 02/20/19 at 09:58; Status DC Insulin Human Lispro (HumaLOG) 0-9 UNITS TIDWMEALS SQ ; Start 02/19/19 at 17:00; Stop 02/19/19 at 17:00; Status DC Dextrose (Dextrose 50%-Water Syringe) 12.5 gm PRN Q15MIN PRN IV SEE COMMENTS; Start 02/19/19 at 14:00; Stop 02/19/19 at 14:38; Status DC Sodium Chloride 1,000 ml @ 125 mls/hr Q8H IV ; Start 02/19/19 at 14:00; Status UNV Sodium Bicarbonate 150 meq/Dextrose 1,150 ml @ 125 mls/hr Q9H12M IV ; Start 02/19/19 at 14:15; Stop 02/19/19 at 14:15; Status DC Sodium Bicarbonate 150 meq/Sterile Water 1,150 ml @ 125 mls/hr 1X ONCE IV Last administered on 02/19/19at 15:52; Start 02/19/19 at 14:15; Stop 02/19/19 at 23: 26; Status DC Insulin Human Lispro (HumaLOG) 0-9 UNITS Q6HRS SQ Last administered on at 06:12; Start 02/19/19 at 18:00 Insulin Human Regular 150 unit/ Sodium Chloride 151.5 ml @ 0 mls/hr CONT PRN IV SEE I/O RECORD Last administered on 02/20/19at 17:51; Start 02/19/19 at 14:30; Stop 02/21/19 at 08:38; Status DC Dextrose (Dextrose 50%-Water Syringe) 12.5 gm PRN Q15MIN PRN IV LOW BLOOD SUGAR ; Start 02/19/19 at 14:30; Stop 02/21/19 at 11:11; Status DC Sodium Chloride 1,000 ml @ 250 mls/hr Q4H IV Last administered on 02/20/19at 06 :38; Start 02/19/19 at 14:28; Stop 02/20/19 at 09:58; Status DC Dextrose/Sodium Chloride 1,000 ml @ 250 mls/hr Q4H IV Last administered on 10/01at 06:46; Start 02/19/19 at 14:28; Stop 02/21/19 at 08:38; Status DC Insulin Human Regular 150 unit/ Sodium Chloride 151.5 ml @ 0 mls/hr CONT PRN PRN IV PER PROTOCOL; Start 02/19/19 at 14:30; Status UNV Calcium Gluconate (Calcium Gluconate) 1,000 mg 1X ONCE IVP Last administered on 02/19/19at 16:01; Start 02/19/19 at 14:30; Stop 02/19/19 at 14:39; Status DC Sodium Polystyrene Sulfonate (Kayexalate) 15 gm 1X ONCE PO Last administered on 02/19/19at 16:30; Start 02/19/19 at 14:30; Stop 02/19/19 at 14:39; Status DC Insulin Human Regular (HumuLIN R VIAL) 10 unit 1X ONCE IV ; Start 02/19/19 at 14 :30; Stop 02/19/19 at 14:39; Status DC Piperacillin Sod/ Tazobactam Sod 3.375 gm/Sodium Chloride 50 ml @ 100 mls/hr 1X ONCE IV Last administered on 02/19/19at 15:15; Start 02/19/19 at 15:15; Stop 02/19/19 at 15:44; Status DC Vancomycin HCl 250 ml @ 250 mls/hr 1X STAT IV ; Start 02/19/19 at 15:04; Stop 02/19/19 at 16:03; Status DC Sodium Chloride 1,000 ml @ 1,000 mls/hr 1X ONCE IV Last administered on at 16:09; Start 02/19/19 at 15:15; Stop 02/19/19 at 16:14; Status DC Vancomycin HCl 1 gm/Sodium Chloride 250 ml @ 250 mls/hr 1X ONCE IV Last administered on 02/19/19at 17:58; Start 02/19/19 at 18:30; Stop 02/19/19 at 19:29; Status DC Sodium Bicarbonate 150 meq/Sterile Water 1,150 ml @ 125 mls/hr Q9H12M IV Last administered on 02/20/19at 05:38; Start 02/19/19 at 20:00; Stop 02/20/19 at 09:58 ; Status DC Norepinephrine Bitartrate 250 ml @ 1.875 mls/ hr CONT PRN IV SEE I/O RECORD; Start 02/19/19 at 21:15 Levetiracetam 750 mg/Dextrose 107.5 ml @ 420 mls/hr Q12HR IV Last administered on 02/20/19at 08:42; Start 02/19/19 at 22:00; Stop 02/20/19 at 11:07 ; Status DC Potassium Chloride/Water 50 ml @ 50 mls/hr Q1H IV Last administered on at 04:10; Start 02/20/19 at 02:30; Stop 02/20/19 at 04:30; Status DC Sodium Phosphate 20 mmol/Dextrose 256.6667 ml @ 64.167 m... 1X ONCE IV Last administered on 02/20/19at 08:45; Start 02/20/19 at 08:00; Stop 02/20/19 at 11:59 ; Status DC Vecuronium [place] (Norcuron Bolus) 10 mg 1X ONCE IV ; Start 02/20/19 at 09:15 ; Stop 02/20/19 at 09:16; Status DC Levetiracetam 1000 mg/Dextrose 110 ml @ 420 mls/hr Q12HR IV Last administered on 02/21/19at 21:04; Start 02/20/19 at 21:00 Lorazepam (Ativan) 2 mg PRN Q4HRS PRN IV ANXIETY / AGITATION Last administered on 02/21/19at 11:02; Start 02/20/19 at 11:15 Lacosamide 100 mg/ Dextrose 60 ml @ 120 mls/hr BID IV Last administered on 08/31at 13:00; Start 02/20/19 at 12:00; Stop 02/20/19 at 18:11; Status DC Vecuronium [place] (Norcuron Bolus) 10 mg 1X ONCE IV Last administered on 02/20at 13:48; Start 02/20/19 at 13:45; Stop 02/20/19 at 13:46; Status DC Lacosamide 200 mg/ Dextrose 70 ml @ 120 mls/hr BID IV Last administered on 10/01at 21:04; Start 02/20/19 at 21:00 Potassium Chloride/Water 50 ml @ 50 mls/hr Q1H IV Last administered on at 10:35; Start 02/21/19 at 08:00; Stop 02/21/19 at 11:59; Status DC Potassium Chloride/Water 50 ml @ 50 mls/hr Q1HR IV ; Start 02/21/19 at 08:00; Stop 02/21/19 at 13:59; Status UNV Insulin Glargine (Lantus) 12 units BID SQ Last administered on 02/21/19at 21:00 ; Start 02/21/19 at 09:00 Insulin Human Lispro (HumaLOG) 0-7 UNITS TIDWMEALS SQ ; Start 02/21/19 at 12:00 ; Stop 02/21/19 at 14:10; Status DC Dextrose (Dextrose 50%-Water Syringe) 12.5 gm PRN Q15MIN PRN IV SEE COMMENTS; Start 02/21/19 at 08:45 Potassium Phosphate 15 mmol/ Sodium Chloride 255 ml @ 127.5 mls/ hr 1X ONCE IV Last administered on 02/21/19at 19:37; Start 02/21/19 at 20:00; Stop at 21:59; Status DC Piperacillin Sod/ Tazobactam Sod (Zosyn Per Pharmacy) 1 each PRN DAILY PRN MC SEE COMMENTS; Start 02/22/19 at 06:30 Piperacillin Sod/ Tazobactam Sod 3.375 gm/Sodium Chloride 50 ml @ 100 mls/hr Q6HRS IV ; Start 02/22/19 at 07:00 Active Scripts Active Reported Tums Ultra (Calcium Carbonate) 400 Mg Tab.chew 400 Mg PO BID Promethazine Hcl 25 Mg Tablet 1 Tab PO BID Hydroxyzine Hcl 25 Mg Tablet 25 Mg PO HS Humulin N (Nph, Human Insulin Isophane) 100 Unit/1 Ml Vial 24 Unit SQ DAILY08 Humulin N (Nph, Human Insulin Isophane) 100 Unit/1 Ml Vial 17 Unit SQ HS Fluoxetine Hcl 20 Mg Capsule 1 Cap PO DAILY Famotidine 20 Mg Tablet 20 Mg PO BID Excedrin Migraine Caplet (Aspirin/Acetaminophen/Caffeine) 1 Each Tablet 2 Each PO PRN BID PRN Acetaminophen 500 Mg Tablet 2 Tab PO BID Vitals/I & O Vital Sign - Last 24 Hours 02/21/19 02/21/19 02/21/19 02/21/19 08:00 08:00 09:00 09:30 Pulse 98 98 Resp 14 14 B/P (MAP) 90/54 (66) 97/62 (74) Pulse Ox 99 99 99 O2 Delivery Ventilator Mechanical Ventilator Ventilator Ventilator 02/21/19 02/21/19 02/21/19 02/21/19 10:00 11:00 11:25 12:00 Pulse 98 98 Resp 18 16 B/P (MAP) 111/65 (80) 101/60 (74) Pulse Ox 99 100 100 O2 Delivery Ventilator Ventilator Ventilator Mechanical Ventilator 02/21/19 02/21/19 02/21/19 02/21/19 12:00 12:25 13:00 14:00 Temp 99.0 99.0 Pulse 100 100 96 Resp 19 20 B/P (MAP) 122/70 (87) 108/65 (79) 100/64 (76) Pulse Ox 100 99 100 100 O2 Delivery Ventilator Ventilator Ventilator Ventilator 02/21/19 02/21/19 02/21/19 02/21/19 15:00 15:00 16:00 16:00 Temp 99.5 99.5 Pulse 100 100 Resp 20 20 B/P (MAP) 110/72 (85) 109/70 (83) Pulse Ox 100 100 100 O2 Delivery Ventilator Ventilator Mechanical Ventilator Ventilator 02/21/19 02/21/19 02/21/19 02/21/19 17:00 17:14 18:00 19:00 Temp 99.8 99.8 Pulse 102 112 107 Resp 20 24 16 B/P (MAP) 109/70 (83) 117/72 (87) 122/69 (86) Pulse Ox 100 100 100 99 O2 Delivery Ventilator Ventilator Ventilator Ventilator 02/21/19 02/21/19 02/21/19 02/21/19 20:00 20:00 21:00 22:00 Pulse 101 99 95 Resp 18 17 17 B/P (MAP) 122/69 (86) 121/69 (86) 119/71 (87) Pulse Ox 100 100 100 O2 Delivery Ventilator Mechanical Ventilator Ventilator Ventilator 02/21/19 02/21/19 02/21/19 02/22/19 23:00 23:27 23:59 00:00 Temp 99.8 99.8 Pulse 97 94 Resp 17 17 B/P (MAP) 107/70 (82) 128/73 (91) Pulse Ox 100 99 96 O2 Delivery Ventilator Ventilator Mechanical Ventilator Ventilator 02/22/19 02/22/19 02/22/19 02/22/19 01:00 02:00 02:18 03:00 Pulse 100 100 100 Resp 19 17 17 B/P (MAP) 106/68 (81) 111/71 (84) 112/78 (89) Pulse Ox 100 100 99 100 O2 Delivery Ventilator Ventilator Ventilator Ventilator 02/22/19 02/22/19 02/22/19 02/22/19 04:00 04:00 05:00 05:34 Temp 100.1 100.1 Pulse 105 100 Resp 18 16 B/P (MAP) 109/67 (81) 108/65 (79) Pulse Ox 100 100 99 O2 Delivery Ventilator Mechanical Ventilator Ventilator Ventilator 02/22/19 06:00 Pulse 100 Resp 17 B/P (MAP) 109/67 (81) Pulse Ox 100 O2 Delivery Ventilator Intake and Output 02/21/19 02/21/19 02/22/19 14:59 22:59 06:59 Intake Total 958 ml 380 ml Output Total 600 ml 330 ml 150 ml Balance -600 ml 628 ml 230 ml GAIL SIMENTAL MD Feb 22, 2019 07:53
[2019-02-22] MEDS: PIPERACILLIN/TAZOBACTAM 3.375 GM in IV NORMAL SALINE 50ML 50 ML IV SCH ×2 (08:40→12:00)
[2019-02-22] MEDS: levETIRAcetam 1,000 MG in IV DEXTROSE 5% 100ML 100 ML IV SCH ×2 (08:42→20:53)
[2019-02-22] MEDS: LACOSAMIDE 200 MG in IV DEXTROSE 5% 50 ML IV SCH ×2 (08:42→20:52)
[2019-02-22 08:51] LABS: BASE EXCESS ABG 3 mmol/L (-3-3); HCO3 ABG 26 mmol/L (21-28); PCO2 ABG 36 mmHg (35-46); PO2 ABG 147 mmHg (85-108); SAT O2 ABG 98 % (92-99)
[2019-02-22 08:56] LABS: FIO2 ABG 35
[2019-02-22] MEDS ORDERED: INSULIN GLARGINE 300 UNITS/3 ML INSULN.PEN. SQ SCH (09:00)
--- NOTE | 2019-02-22 09:19 | PDOC ---
SUBJECTIVE ROS No purposeful movements , withdrawing care OBJECTIVE Vital Signs Vital Signs Date Time Temp Pulse Resp B/P (MAP) Pulse Ox O2 Delivery O2 Flow Rate FiO2 02/22/19 08:46 99 Ventilator 02/22/19 06:00 100 17 109/67 (81) 02/22/19 04:00 100.1 100.1 I & 0 Intake and Output 02/22/19 07:00 Intake Total 1338 ml Output Total 1080 ml Balance 258 ml IV Total 1188 ml Tube Feeding 150 ml Output Urine Total 1080 ml PHYSICAL EXAM Physical Exam General: intubated. no sedation HEENT: NG , ET Neck Supple Lungs: Clear to auscultation, Cardiovascular: RRR Abdomen: Normal bowel sounds, Soft, No tenderness, Extremities: No clubbing, No cyanosis, No edema, Skin: No rashes, No breakdown, No significant lesion Neuro: Intubated, Not sedated Smiley + DIAGNOSIS/ASSESSMENT Assessment & Plan LACY - Post cardiac arrest /DKA Non oliguric, Improving with IVF /DKA protocol UA unremarkable Improving renal function Metabolic acidosis - Sec to DKA Improved Hyperkalemia- Currently Hypokalemic Out of Hospital cardiac arrest, down time 20-30 minutes Pulse less, non-shockable rhythm Respiratory failure secondary to cardiac arrest. Intubated on MV Possible hypoxic/anoxic brain injury MRI Findings are seen consistent with anoxic brain injury Neurology following Diabetes type 1, insulin DKA Initial BS 1500 ,DKA protocol Withdrawing care as per RN Sign off COMMENT/RELEVANT DATA Meds Current Medications Medications (Trade) Dose Ordered Sig/Nieves Start Time Stop Time Status Last Admin Dose Admin Calcium Gluconate (Calcium Gluconate) 1,000 mg 1X ONCE 02/19/19 14:30 02/19/19 14:39 DC 02/19/19 16:01 1,000 MG Dextrose (Dextrose 50%-Water Syringe) 12.5 gm PRN Q15MIN PRN 02/21/19 08:45 Dextrose/Sodium Chloride 1,000 ml @ 250 mls/hr Q4H 02/19/19 14:28 02/21/19 08:38 DC 02/21/19 06:46 250 MLS/HR Enoxaparin Sodium (Lovenox 40mg Syringe) 40 mg 1X ONCE 02/19/19 14:00 02/20/19 09:58 DC 02/19/19 16:27 40 MG Info (CONTRAST GIVEN -- Rx MONITORING) 1 each PRN DAILY PRN 02/19/19 13:30 02/21/19 13:29 DC Insulin Glargine (Lantus) 15 units BID 02/22/19 09:00 02/22/19 08:44 15 UNITS Insulin Human Lispro (HumaLOG) 0-7 UNITS TIDWMEALS 02/21/19 12:00 02/21/19 14:10 DC Insulin Human Regular (HumuLIN R VIAL) 10 unit 1X ONCE 02/19/19 14:30 02/19/19 14:39 DC Insulin Human Regular 150 unit/ Sodium Chloride 151.5 ml @ 0 mls/hr CONT PRN PRN 02/19/19 14:30 UNV Iohexol (Omnipaque 300 Mg/ml) 75 ml 1X ONCE 02/19/19 13:30 02/19/19 13:31 DC Lacosamide 100 mg/ Dextrose 60 ml @ 120 mls/hr BID 02/20/19 12:00 02/20/19 18:11 DC 02/20/19 13:00 120 MLS/HR Lacosamide 200 mg/ Dextrose 70 ml @ 120 mls/hr BID 02/20/19 21:00 02/22/19 08:42 120 MLS/HR Levetiracetam 1000 mg/Dextrose 110 ml @ 420 mls/hr Q12HR 02/20/19 21:00 02/22/19 08:42 420 MLS/HR Levetiracetam 750 mg/Dextrose 107.5 ml @ 420 mls/hr Q12HR 02/19/19 22:00 02/20/19 11:07 DC 02/20/19 08:42 420 MLS/HR Lorazepam (Ativan) 2 mg PRN Q4HRS PRN 02/20/19 11:15 02/21/19 11:02 2 MG Morphine Sulfate (Morphine Sulfate) 2 mg PRN Q2HR PRN 02/19/19 14:00 Norepinephrine Bitartrate 250 ml @ 1.875 mls/ hr CONT PRN 02/19/19 21:15 Ondansetron HCl (Zofran) 4 mg PRN Q6HRS PRN 02/19/19 14:00 Pantoprazole Sodium (PROTONIX VIAL for IV PUSH) 40 mg 1X ONCE 02/19/19 14:00 02/19/19 14:01 DC 02/19/19 16:26 40 MG Piperacillin Sod/ Tazobactam Sod (Zosyn Per Pharmacy) 1 each PRN DAILY PRN 02/22/19 06:30 Piperacillin Sod/ Tazobactam Sod 3.375 gm/Sodium Chloride 50 ml @ 100 mls/hr Q6HRS 02/22/19 07:00 02/22/19 08:40 100 MLS/HR Potassium Chloride/Water 50 ml @ 50 mls/hr Q1HR 02/21/19 08:00 02/21/19 13:59 UNV Potassium Phosphate 15 mmol/ Sodium Chloride 255 ml @ 127.5 mls/ hr 1X ONCE 02/21/19 20:00 02/21/19 21:59 DC 02/21/19 19:37 127.5 MLS/HR Sodium Bicarbonate 150 meq/Dextrose 1,150 ml @ 125 mls/hr Q9H12M 02/19/19 14:15 02/19/19 14:15 DC Sodium Bicarbonate 150 meq/Sterile Water 1,150 ml @ 125 mls/hr Q9H12M 02/19/19 20:00 02/20/19 09:58 DC 02/20/19 05:38 125 MLS/HR Sodium Polystyrene Sulfonate (Kayexalate) 15 gm 1X ONCE 02/19/19 14:30 02/19/19 14:39 DC 02/19/19 16:30 15 GM Sodium Chloride 1,000 ml @ 1,000 mls/hr 1X ONCE 02/19/19 15:15 02/19/19 16:14 DC 02/19/19 16:09 1,000 MLS/HR Sodium Phosphate 20 mmol/Dextrose 256.6667 ml @ 64.167 m... 1X ONCE 02/20/19 08:00 02/20/19 11:59 DC 02/20/19 08:45 64.167 MLS/HR Vancomycin HCl 250 ml @ 250 mls/hr 1X STAT 02/19/19 15:04 02/19/19 16:03 DC Vancomycin HCl 1 gm/Sodium Chloride 250 ml @ 250 mls/hr 1X ONCE 02/19/19 18:30 02/19/19 19:29 DC 02/19/19 17:58 250 MLS/HR Vecuronium Sabinal (Norcuron Bolus) 10 mg 1X ONCE 02/20/19 13:45 02/20/19 13:46 DC 02/20/19 13:48 10 MG Lab Laboratory Tests Test 02/21/19 09:19 02/21/19 09:52 02/21/19 13:30 02/21/19 17:30 Glucose (Fingerstick) 57 mg/dL (70-99) 113 mg/dL (70-99) 284 mg/dL (70-99) 296 mg/dL (70-99) Test 02/21/19 20:58 02/22/19 02:00 02/22/19 05:24 02/22/19 05:30 Glucose (Fingerstick) 252 mg/dL (70-99) 240 mg/dL (70-99) 239 mg/dL (70-99) Sodium Level 143 mmol/L (136-145) Potassium Level 3.6 mmol/L (3.5-5.1) Chloride Level 106 mmol/L (98-107) Carbon Dioxide Level 28 mmol/L (21-32) Anion Gap 9 (6-14) Blood Urea Nitrogen 22 mg/dL (8-26) Creatinine 1.2 mg/dL (0.7-1.3) Estimated GFR (Cockcroft-Gault) 73.8 Glucose Level 249 mg/dL (70-99) Calcium Level 8.0 mg/dL (8.5-10.1) Test 02/22/19 07:53 02/22/19 08:45 Glucose (Fingerstick) 166 mg/dL (70-99) O2 Saturation 98 % (92-99) Arterial Blood pH 7.49 (7.35-7.45) Arterial Blood pCO2 at Patient Temp 36 mmHg (35-46) Arterial Blood pO2 at Patient Temp 147 mmHg (85-108) Arterial Blood HCO3 26 mmol/L (21-28) Arterial Blood Base Excess 3 mmol/L (-3-3) FiO2 35 Results All relevant outside records, renal labs, imaging studies, telemetry/EKG's were reviewed. PORTER GREGG MD Feb 22, 2019 09:19
[2019-02-22] MEDS: fentaNYL PF VIAL 100 MCG/2 ML VIAL IV PRN ×4 (12:18→16:30)
--- NOTE | 2019-02-22 13:07 | RAD ---
Chest radiograph 02/22/2019 6:17 AM INDICATION: Respiratory failure COMPARISON: February 20, 2019 TECHNIQUE: Portable frontal semi-upright view of the chest is provided. FINDINGS: The cardiomediastinal silhouette is within normal limits. Similar position of endotracheal tube measuring 2 cm above the level of the albert. Nasogastric tube is in similar position. There is improved aeration of the lungs with persistent perihilar interstitial changes. No pleural effusions or pneumothorax. IMPRESSION: Stable support lines and tubes. Improved aeration of the lungs with resolving interstitial and alveolar pulmonary edema. Electronically signed by: Tayla Lyles MD (02/22/2019 1:04 PM) [id number]
--- NOTE | 2019-02-22 15:32 | PDOC ---
PROGRESS NOTES Assessment Assessment Anoxia/hypoxia encephalopathy. Hypoxic brain injury. Metabolic encephalopathy. Brain cortex . Minimal brain stem function remains at the time of exam. S/p cardiac arrest, PEA, down time estimated 20-30 minutes. Respiratory failure. Aspiration or pulmonary infiltrate. Hyperglycemia, glucose level 1510. Lactic acidosis. Leukocytosis. Myoclonus in status epilepticus. Shock. Renal failure. Elevated hepatic enzymes. Hyponatremia, Na+ 124. Hyperkalemia, K+ 7.3. Hyper-phosphorus Hypocalcemia. DM, type 1. Very poor prognosis without possibility of meaningful recovery. RECOMMENDATIONS/PLAN: Family withdrew care and life support in a.m 02/22/19. Continue Keppra to 1000 mg IV q12h. Continue Vimpat 200 mg IV q12h. Ativan 2 mg IV PRN q4h, for seizure control. On 02/22/19, showed his mother and [id number] of his brain MRI findings. Brain MRI on 02/20/19: In consistent with hypoxia brain injury. Refer to Radiology reports. EEG: Abnormal. PLEDs on near isoelectric background. History of Present Illness This is a 23-year-old male who is current in incarceration facility with history of diabetes type 1 on insulin treatment. He was reportedly refused insulin in facility. He was found down by guards as pulseless. He received CPR with 2 injections of epi and the downtime was estimated 20-30 minutes. He was intubated outside of the hospital before arrival to the ER of [facility]. He remained unresponsive. Pupils are sluggish and dilated. His glucose was 1510. Neurology was requested for consultation for anoxic brain injury. Myoclonic movements in left UE significantly decreased on 02/20/19 after treatment, but still not resolved. No myoclonic movements observed on 02/22/19. Past Medical History Endocrine: Diabetes Past Surgical History No pertinent history Family History Unknown Social History Smoke: Unknown. ALCOHOL: Unknown. Drugs: None ALLERGY: Unknown MEDICATIONS: Refer to MAR REVIEW OF SYSTEMS: Constitutional: No malnutrition, weight loss, cachexia. Head: No traumatic brain or head injury. Skin: No edema, or rash. Ear: No infection. Eyes: No vision loss or color blindness. Nose: No bleeding or purulent discharges. Hearing: No hearing decrease. Neck: No injury. Cardiac: Cardiac arrest this time. Pulmonary: Respiratory failure this time. GI: No GI ulcer, GI bleeding. Urinary/genital: Unknown. Endocrinologic: Diabetes Mellitus. Skeletomuscular: No obvious muscular atrophy. Neurological: see HP. Psychiatric: Denies drug use/abuse. Otherwise, not [id number] review of systems. PHYSICAL EXAMINATION: General appearance is in acute distress. HEENT: Normocephalic and nontraumatic. Eyes, nose, ears, and throat are unremarkable. Neck is supple. No lymphadenopathy. No crepitus. Cardiovascular: S1, S2, regular rate and rhythm. Pulmonary: On vent. Abdomen: Bowel sounds are positive. Extremities: No rash. NEUROLOGICAL EXAMINATION: Withdrew care and life support per family. In deep coma. No sedation. Not oriented to time, place and person. Pupils 1-2 mm, not reactive to bright light stimuli. Corneal reflex not exist. No Doll's sign. No gag reflex. Cough reflex occasionally noted per nurse. EOMI not elicited. CN: no acute focal findings. Muscle tone: decreased. Muscle strength: no movements to painful stimuli. DTR: 0-1 (from spinal cord). Plantar reflex: No response bilaterally Gait: not able to walk in this mentation. Sensory exam: No response to pain stimuli. Not able to access cerebellar signs. F-T-N test not performed due to in deep coma. Myoclonic movements stopped. Objective Objective Vital Signs Date Time Temp Pulse Resp B/P (MAP) Pulse Ox O2 Delivery O2 Flow Rate FiO2 02/22/19 14:12 Room Air 02/22/19 11:00 105 16 106/68 (81) 16 02/22/19 07:00 99.8 99.8 Intake and Output 02/22/19 07:00 Intake Total 1338 ml Output Total 1280 ml Balance 58 ml IV Total 1188 ml Tube Feeding 150 ml Output Urine Total 1280 ml Vitals Signs Vitals VS - Last 72 Hours, by Label Date Time Temp Pulse Resp B/P (MAP) Pulse Ox O2 Delivery O2 Flow Rate FiO2 02/22/19 14:12 Room Air 02/22/19 13:40 Room Air 02/22/19 12:00 Room Air 02/22/19 11:00 105 16 106/68 (81) 16 Ventilator 02/22/19 10:00 107 20 93/57 (69) 99 Ventilator 02/22/19 09:00 105 18 101/60 (74) 100 Ventilator 02/22/19 08:46 99 Ventilator 02/22/19 08:00 Mechanical Ventilator 02/22/19 08:00 105 18 108/72 (84) 100 Ventilator 02/22/19 07:00 99.8 103 17 109/72 (84) 100 Ventilator 99.8 02/22/19 06:00 100 17 109/67 (81) 100 Ventilator 02/22/19 05:34 99 Ventilator 02/22/19 05:00 100 16 108/65 (79) 100 Ventilator 02/22/19 04:00 Mechanical Ventilator 02/22/19 04:00 100.1 105 18 109/67 (81) 100 Ventilator 100.1 02/22/19 03:00 100 17 112/78 (89) 100 Ventilator 02/22/19 02:18 99 Ventilator 02/22/19 02:00 100 17 111/71 (84) 100 Ventilator 02/22/19 01:00 100 19 106/68 (81) 100 Ventilator 02/22/19 00:00 99.8 94 17 128/73 (91) 96 Ventilator 99.8 02/21/19 23:59 Mechanical Ventilator 02/21/19 23:27 99 Ventilator 02/21/19 23:00 97 17 107/70 (82) 100 Ventilator 02/21/19 22:00 95 17 119/71 (87) 100 Ventilator 02/21/19 21:00 99 17 121/69 (86) 100 Ventilator 02/21/19 20:00 Mechanical Ventilator 02/21/19 20:00 101 18 122/69 (86) 100 Ventilator 02/21/19 19:00 99.8 107 16 122/69 (86) 99 Ventilator 99.8 02/21/19 18:00 112 24 117/72 (87) 100 Ventilator 02/21/19 17:14 100 Ventilator 02/21/19 17:00 102 20 109/70 (83) 100 Ventilator 02/21/19 16:00 99.5 100 20 109/70 (83) 100 Ventilator 99.5 02/21/19 16:00 Mechanical Ventilator 02/21/19 15:00 100 Ventilator 02/21/19 15:00 100 20 110/72 (85) 100 Ventilator 02/21/19 14:00 96 20 100/64 (76) 100 Ventilator 02/21/19 13:00 100 108/65 (79) 100 Ventilator 02/21/19 12:25 99 Ventilator 02/21/19 12:00 99.0 100 19 122/70 (87) 100 Ventilator 99.0 02/21/19 12:00 Mechanical Ventilator 02/21/19 11:25 100 Ventilator 02/21/19 11:00 98 16 101/60 (74) 100 Ventilator 02/21/19 10:00 98 18 111/65 (80) 99 Ventilator 02/21/19 09:30 99 Ventilator 02/21/19 09:00 98 14 97/62 (74) 99 Ventilator 02/21/19 08:00 Mechanical Ventilator 02/21/19 08:00 98 14 90/54 (66) 99 Ventilator 02/21/19 07:26 100 Ventilator 02/21/19 07:00 99.3 98 14 102/61 (75) 100 Ventilator 99.3 Laboratory Laboratory Laboratory Tests Test 02/21/19 17:30 02/21/19 20:58 02/22/19 02:00 02/22/19 05:24 Glucose (Fingerstick) 296 mg/dL (70-99) 252 mg/dL (70-99) 240 mg/dL (70-99) 239 mg/dL (70-99) Test 02/22/19 05:30 02/22/19 07:53 02/22/19 08:45 Sodium Level 143 mmol/L (136-145) Potassium Level 3.6 mmol/L (3.5-5.1) Chloride Level 106 mmol/L (98-107) Carbon Dioxide Level 28 mmol/L (21-32) Anion Gap 9 (6-14) Blood Urea Nitrogen 22 mg/dL (8-26) Creatinine 1.2 mg/dL (0.7-1.3) Estimated GFR (Cockcroft-Gault) 73.8 Glucose Level 249 mg/dL (70-99) Calcium Level 8.0 mg/dL (8.5-10.1) Glucose (Fingerstick) 166 mg/dL (70-99) O2 Saturation 98 % (92-99) Arterial Blood pH 7.49 (7.35-7.45) Arterial Blood pCO2 at Patient Temp 36 mmHg (35-46) Arterial Blood pO2 at Patient Temp 147 mmHg (85-108) Arterial Blood HCO3 26 mmol/L (21-28) Arterial Blood Base Excess 3 mmol/L (-3-3) FiO2 35 Microbiology 02/19/19 Blood Culture - Preliminary, Resulted NO GROWTH AFTER 3 DAYS Medication Medications Current Medications Fentanyl Citrate (Fentanyl 2ml Vial) 50 mcg PRN Q30MIN PRN IV PAIN Last administered on 02/22/19at 14:12; Start 02/22/19 at 11:45 Insulin Glargine (Lantus) 15 units BID SQ Last administered on 02/22/19at 08:44 ; Start 02/22/19 at 09:00; Stop 02/22/19 at 12:10; Status DC Lorazepam (Ativan) 2 mg PRN Q1HR PRN IV ANXIETY / AGITATION Last administered on 02/22/19at 12:17; Start 02/22/19 at 11:45 Piperacillin Sod/ Tazobactam Sod (Zosyn Per Pharmacy) 1 each PRN DAILY PRN MC SEE COMMENTS; Start 02/22/19 at 06:30; Stop 02/22/19 at 12:10; Status DC Piperacillin Sod/ Tazobactam Sod 3.375 gm/Sodium Chloride 50 ml @ 100 mls/hr Q6HRS IV Last administered on 02/22/19at 08:40; Start 02/22/19 at 07:00; Stop at 12:10; Status DC Potassium Phosphate 15 mmol/ Sodium Chloride 255 ml @ 127.5 mls/ hr 1X ONCE IV Last administered on 02/21/19at 19:37; Start 02/21/19 at 20:00; Stop at 12:10; Status DC Comment Review of Relevant I have reviewed the following items bree (where applicable) has been applied. NARCISO KHAN MD Feb 22, 2019 15:32
--- NOTE | 2019-02-23 07:22 | PDOC3 ---
Discharge Summary Visit Information Date of Admission: Feb 19, 2019 Date of Discharge: Feb 22, 2019 Admitting Diagnosis: Hypoxic respiratory failure, Post cardiac arrest Final Diagnosis Problems Medical Problems: (1) Acute renal insufficiency Status: Acute (2) Cardiac arrest Status: Acute (3) Hepatic failure Status: Acute (4) History of sepsis Status: Acute (5) Hyperkalemia Status: Acute (6) Metabolic acidosis Status: Acute Brief Hospital Course Allergies Allergies Coded Allergies Type Severity Reaction Last Updated Verified No Known Drug Allergies 02/19/19 No Vital Signs Vital Signs Date Time Temp Pulse Resp B/P (MAP) Pulse Ox O2 Delivery O2 Flow Rate FiO2 02/22/19 20:30 Nasal Cannula 2.0 02/22/19 19:00 99.1 112 32 102/51 (65) 41 99.1 Lab Results Laboratory Tests Test 02/21/19 09:19 02/21/19 09:52 02/21/19 13:30 02/21/19 17:30 Glucose (Fingerstick) 57 mg/dL (70-99) 113 mg/dL (70-99) 284 mg/dL (70-99) 296 mg/dL (70-99) Test 02/21/19 20:58 02/22/19 02:00 02/22/19 05:24 02/22/19 05:30 Glucose (Fingerstick) 252 mg/dL (70-99) 240 mg/dL (70-99) 239 mg/dL (70-99) Sodium Level 143 mmol/L (136-145) Potassium Level 3.6 mmol/L (3.5-5.1) Chloride Level 106 mmol/L (98-107) Carbon Dioxide Level 28 mmol/L (21-32) Anion Gap 9 (6-14) Blood Urea Nitrogen 22 mg/dL (8-26) Creatinine 1.2 mg/dL (0.7-1.3) Estimated GFR (Cockcroft-Gault) 73.8 Glucose Level 249 mg/dL (70-99) Calcium Level 8.0 mg/dL (8.5-10.1) Test 02/22/19 07:53 02/22/19 08:45 Glucose (Fingerstick) 166 mg/dL (70-99) O2 Saturation 98 % (92-99) Arterial Blood pH 7.49 (7.35-7.45) Arterial Blood pCO2 at Patient Temp 36 mmHg (35-46) Arterial Blood pO2 at Patient Temp 147 mmHg (85-108) Arterial Blood HCO3 26 mmol/L (21-28) Arterial Blood Base Excess 3 mmol/L (-3-3) FiO2 35 Laboratory Tests Test 02/22/19 07:53 02/22/19 08:45 Glucose (Fingerstick) 166 mg/dL (70-99) O2 Saturation 98 % (92-99) Arterial Blood pH 7.49 (7.35-7.45) Arterial Blood pCO2 at Patient Temp 36 mmHg (35-46) Arterial Blood pO2 at Patient Temp 147 mmHg (85-108) Arterial Blood HCO3 26 mmol/L (21-28) Arterial Blood Base Excess 3 mmol/L (-3-3) FiO2 35 Brief Hospital Course is a 23yo M DM1 from alf who was reportedly found down by guards as pulseless. Reportedly the patient refuses to take fluids and insulin for several days and was found unresponsive. EMS was arrived to the [place] [facility] door at 1209 and found patient in asystole without spontaneous breathing and started CPR at 1213 and intubated the patient at 1223 with 7.5 T tube. He received CPR with 2 injections of epi and the downtime was estimated 20-30 minutes. He was not responsive after ROSC. Pupils were sluggish and dilated. The patient's sugar was very high, 1510 mg/dL, treated for DKA. His CT head did not reveal any acute abnormality. His chest x-ray post-intubation showed endotracheal tube in satisfactory position and slightly prominent interstitial markings. He was noted to have marked hyperglycemia and marked hyperkalemia, K of 7.3, along with renal failure. Lactate was 9 on admission as well. His liver function tests were highly abnormal. He was initiated on insulin drip. He also has received fluid resuscitation as a part of DKA protocol and on 12 mcg of Levophed. He initially was having some bloody NG output. He remained unresponsive at 24 hours with pupils are sluggish and dilated. Neurology was requested for consultation for anoxic brain injury. Pulmonology/ critical care consulted for vent management. Nephrology consulted for LACY with hyperkalemia and cardiology consulted for cardiac arrest outside the hospital. Myoclonic movements in left UE noted, started on keppra and vimpat to mitigate seizure activity, but still not resolved. No purposeful movement, not responding to noxious stimuli, chain of events and labs reviewed. Less myoclonus over the course of 3 days. Shelter allowed family visitors after being informed of MRI and EEG results consistent with severe global anoxic brain injury and significantly decreased cortical activity with high risk for seizures. Mother was bedside 02/22/19 in the morning and we discussed his grave neurologic condition in depth. She wished for withdrawal of care and DNR/DNI status and brought her mother, , and older son bedside to visit. I discussed with mother bedside. She had made her wish clear to discontinue mechanical ventilation today after her other son arrived and would like his organs and body donated (she prefers [facility]). After d/w neuro and pulm discontinuation of apnea test and other measures were initiated and terminal intubation performed 02/22/19 in the afternoon. at 2218 on 02/22/19 was noted without cardiac or respiratory activity for greater than 1 minute MRI results and EEG results noted EE. Background: The patient was recorded in the comatose state. No physiological awake, drowsy, and sleep states were recorded. The overall background amplitude is near isoelectric with periodical bursts of spike-and- wave contoured activities as PLEDs. No posterior-dominant rhythm is observed. 2. Abnormalities: PLEDs noted on the background of near isoelectric lasting for a few seconds each time. 3. Activation: Hyperventilation was not performed because the patient was in comatose state. Intermittent photic stimulation was performed without photic driving. IMPRESSION: This EEG is a remarkably abnormal study for the comatose state only. No physiological awake, drowsy, and sleep states were recorded. No posterior-dominant rhythm is observed. The overall rhythm is near isoelectric background with PLEDs like activities. This pattern of EEG is suggestive of severe cerebral dysfunction at increased risk of seizure. MRI: The ventricles are within normal limits in size and configuration. Symmetric areas of of restricted diffusion are seen involving the cerebellum, medial aspect of both temporal lobes in the region of the hippocampi along with the cortex of the lateral temporal lobes, the lateral occipital lobes and the parietal and posterior frontal lobes. There is mild surrounding edema involving the medial temporal lobes without evidence of significant mass effect.. These findings are consistent with anoxic brain injury. No extra-axial fluid collection is noted. No area of parenchymal hemorrhage is seen. Mild mucosal thickening is seen involving the ethmoid air cells bilaterally. Normal flow voids are seen within the major vascular structures surrounding the brain parenchyma. IMPRESSION: Findings are seen consistent with anoxic brain injury as outlined above. Status post cardiopulmonary arrest Hyperkalemia LACY Tranasminitis Lactic acidosis Myoclonic seizures Acute respiratory failure hypoxemic in nature History of diabetes mellitus type 1 DKA - etiology of cardiac arrest likely DKA with hyperkalemia considering asystole arrest and apparently normal cardiac functioning after ROSC and electrolyte management (echo performed with no acute abnormalities) Anoxic brain injury - shows myoclonus and some lack of brain stem function ( absent corneal and gag reflex) Greater than 35 minutes spent on end of life care on day of discharge. Discharge Information Condition at Discharge: / Disposition/Orders: Scheduled Acetaminophen (Acetaminophen) 500 Mg Tablet, 2 TAB PO BID for pain, #60 Ref 1 ( Reported) Entered as Reported by: Maria Eugenia Genao on 02/19/191807 Last Action: New Order on 02/19/191807 by Maria Eugenia Genao Calcium Carbonate (Tums Ultra) 400 Mg Tab.chew, 400 MG PO BID for x, (Reported) Entered as Reported by: JAY SANCHES on 02/19/191817 Last Action: New Order on 02/19/191817 by JAY SANCHES Famotidine (Famotidine) 20 Mg Tablet, 20 MG PO BID for stomach, (Reported) Entered as Reported by: Maria Eugenia Genao on 02/19/191807 Last Action: New Order on 02/19/191807 by Maria Eugenia Genao Fluoxetine Hcl (Fluoxetine Hcl) 20 Mg Capsule, 1 CAP PO DAILY for depression, # 90 Ref 1 (Reported) Entered as Reported by: Maria Eugenia Genao on 02/19/191807 Last Action: New Order on 02/19/191807 by Maria Eugenia Genao Hydroxyzine Hcl (Hydroxyzine Hcl) 25 Mg Tablet, 25 MG PO HS for x, (Reported) Entered as Reported by: JAY SANCHES on 02/19/191817 Last Action: New Order on 02/19/191817 by JAY SANCHES Nph, Human Insulin Isophane (Humulin N) 100 Unit/1 Ml Vial, 17 UNIT SQ HS for blood sugar, (Reported) Entered as Reported by: JAY SANCHES on 02/19/191817 Last Action: New Order on 02/19/191817 by JAY SANCHES Nph, Human Insulin Isophane (Humulin N) 100 Unit/1 Ml Vial, 24 UNIT SQ DAILY08 for blood sugar, (Reported) Entered as Reported by: JAY SANCHES on 02/19/191817 Last Action: New Order on 02/19/191817 by JAY SANCHES Promethazine Hcl (Promethazine Hcl) 25 Mg Tablet, 1 TAB PO BID for x, #20 ( Reported) Entered as Reported by: JAY SANCHES on 02/19/191817 Last Action: New Order on 02/19/191817 by JAY SANCHES Scheduled PRN Aspirin/Acetaminophen/Caffeine (Excedrin Migraine Caplet) 1 Each Tablet, 2 EACH PO PRN BID PRN for PAIN, (Reported) Entered as Reported by: Maria Eugenia Genao on 02/19/191807 Last Action: New Order on 02/19/191807 by GAIL Grider MD Feb 23, 2019 07:22
== END 2019-02-23 04:01 | disposition expired | DRG 208 ==
LOC: EEVIPCON 12:57 → ER 12:57 → 1 WEST ICU 13:34 → 5 NORTH 02-22 17:30
PROVIDERS: ADMIT Internal Medicine; ATTEND Internal Medicine
PROC: 5A1945Z Respiratory Ventilation, 24-96 Consecutive Hours (ICD-10-PCS; principal; 2019-02-19)
PROC: 0BH17EZ Insertion of Endotracheal Airway into Trachea, Via Natural or Artificial Opening (ICD-10-PCS; 2019-02-19)
DX: J96.01 Acute respiratory failure with hypoxia (principal); G93.41 Metabolic encephalopathy; K72.00 Acute and subacute hepatic failure without coma; E10.11 Type 1 diabetes mellitus with ketoacidosis with coma; R57.9 Shock, unspecified; N17.9 Acute kidney failure, unspecified; G93.1 Anoxic brain damage, not elsewhere classified; E87.1 Hypo-osmolality and hyponatremia; Z66 Do not resuscitate; I46.9 Cardiac arrest, cause unspecified; E87.5 Hyperkalemia; D72.829 Elevated white blood cell count, unspecified; F32.9 Major depressive disorder, single episode, unspecified; E87.6 Hypokalemia; G40.901 Epilepsy, unspecified, not intractable, with status epilepticus; E83.51 Hypocalcemia; E86.1 Hypovolemia; Z79.4 Long term (current) use of insulin; Z79.899 Other long term (current) drug therapy
CPT/HCPCS: 31500; 36415; 36556; 36600; 51702; 70450; 70551; 71045; 72125; 80048; 80053; 80076; 80307; 80329; 81001; 82010; 82550; 82607; 82805; 82947; 82962; 83605; 83690; 83735; 83880; 84100; 84443; 84484; 85007; 85025; 85610; 87040; 87641; 92950; 93005; 93306; 94002; 94003; 94640; 95816; 96361; 96365; 96372; 96375; 99292; C9113; C9254; J0610; J1650; J1815; J1953; J2060; J2543; J3010; J3370; J3480; J7030; J7050; 99291-25; G0480